=== PATIENT | female | born 1935 | race Caucasian/White ===

== ENCOUNTER 2018-10-04 05:08 | Inpatient (IN) ==
[2018-10-04] MEDS ORDERED: IPRATROPIUM/ALBUTEROL 3 ML AMPUL.NEB NEB ONE ×2 (05:22→05:58)
[2018-10-04] MEDS ORDERED: methylPREDNISolone SOD SUCC 125 MG/2 ML VIAL IV ONE (05:32)
[2018-10-04 06:20] LABS: Basophils # (Auto) 0 K/mcL (0.0-0.3); Basophils % (Auto) 0.3 % (0.0-2.0); Eosinophils # (Auto) 0.2 K/mcL (0.0-0.7); Eosinophils % (Auto) 1.9 % (0.0-7.0); Granulocytes % (Auto) 73.5 % (38.0-78.0); Lymphocytes # (Auto) 1.5 K/mcL (1.5-4.8); Lymphocytes % (Auto) 13.8 % (15.5-49.0); Mean Cell Volume 89.6 fL (80.0-100.0); Mean Corpuscular HGB Conc 33.1 g/dL (31.0-36.0); Monocytes # (Auto) 1.1 K/mcL (0.1-0.9); Monocytes % (Auto) 10.5 % (1.0-12.0); Platelet Count 205 K/mcL (140-440); Red Cell Distribution Width 13.1 % (11.5-14.5)
[2018-10-04 06:44] LABS: ALT/SGPT 22 U/l (0-40); Albumin 3.9 gm/dL (3.2-5.2); Albumin/Globulin Ratio 1.4 (1.0-2.3); Alkaline Phosphatase 66 U/L (39-117); Blood Urea Nitrogen 14 mg/dl (8-23)
[2018-10-04] MEDS ORDERED: cefTRIAXone 1 GM VIAL IV ONE (07:15)
[2018-10-04] MEDS ORDERED: LEVOFLOXACIN 750 MG/150 ML BAG IV ONE (07:15)
--- NOTE | 2018-10-04 07:19 | Emergency Department Note ---
SOB HPI - General Chief Complaint: Shortness of Breath/Dyspnea Stated Complaint: shortness of breath Time Seen by Provider: 10/04/18 07:10 Source: patient Mode of arrival: ambulatory Limitations: no limitations - History of Present Illness I saw this patient in 4 days ago for acute exacerbation of COPD. She is started on Zithromax and prednisone but has worsened her O2 saturation was in the 80s she is coughing constantly continue to bring up green phlegm feels tired and fatigued and short of breath. - Related Data Home Medications Medication Instructions Recorded Confirmed ascorbic acid (vitamin C) 500 mg 500 mg PO QDAY 06/27/17 09/17/18 tablet aspirin 81 mg tablet,delayed 81 mg PO QDAY 06/27/17 09/17/18 release lactobacillus combination no.8 3 3,000 mmu cells PO QDAY 06/27/17 09/17/18 billion cell capsule vitamin E (dl, acetate) 1,000 unit 1,000 unit PO QDAY 06/27/17 09/17/18 capsule cyanocobalamin (vit B-12) 1,000 1,000 mcg SUBLINGUAL QDAY 02/12/18 09/17/18 mcg sublingual tablet cholecalciferol (vitamin D3) 1,000 2,000 unit PO QDAY cap 07/25/18 09/17/18 unit capsule omega-3 fatty acids 1,000 mg 1,000 mg PO BID cap 07/25/18 09/17/18 capsule Previous Rx's Medication Instructions Recorded ropinirole 1 mg tablet 1 mg PO BID #180 tab 05/11/18 albuterol sulfate HFA 90 180 mcg INHALATION Q6H PRN #18 g 06/05/18 mcg/actuation aerosol inhaler hydrochlorothiazide 12.5 mg capsule 12.5 mg PO QDAY #90 cap 06/05/18 albuterol sulfate 0.63 mg/3 mL 0.63 mg INHALATION QID PRN #360 ml 06/19/18 solution for nebulization Nebulizer machine with supplies #1 ea 06/27/18 levothyroxine 112 mcg tablet 112 mcg PO QDAY #90 tab 07/03/18 budesonide-formoterol HFA 160 2 puff INHALATION BID #10.2 g 08/03/18 mcg-4.5 mcg/actuation aerosol inhaler hydrocodone 5 mg-acetaminophen 325 1 tab PO BID PRN #60 tab 09/10/18 mg tablet Azithromycin [Zithromax] 250 mg PO DAILY #4 tab 09/30/18 losartan 50 mg tablet 50 mg PO QDAY #90 tab 10/03/18 Allergies Allergy/AdvReac Type Severity Reaction Status Date / Time celecoxib [From CELEBREX] Allergy Unknown Unknown Verified 10/04/18 05:17 clindamycin [From CLEOCIN] Allergy Unknown Unknown Verified 10/04/18 05:17 Diclofenac Allergy Unknown Unknown Verified 10/04/18 05:17 [From ARTHROTEC 50] misoprostol Allergy Unknown Unknown Verified 10/04/18 05:17 [From ARTHROTEC 50] triamcinolone [From KENALOG] Allergy Unknown Unknown Verified 10/04/18 05:17 morphine [MORPHINE] AdvReac Intermediate Hallucinati Verified 10/04/18 05:17 ons lisinopril [LISINOPRIL] AdvReac Mild COUGH Verified 10/04/18 05:17 Review of Systems All systems ED: reviewed and negative except as stated. Past Medical History - Past Medical History PMFSH Narrative: Medical History (Last Reviewed 09/05/18 @ 15:26 by Randal Alvarez MD) History of right breast cancer (Resolved) COPD (chronic obstructive pulmonary disease) with chronic bronchitis (Acute) Numbness of foot (Acute) Asthma (Chronic) Chest discomfort (Acute) Encounter for Health Maintenance Examination in Adult (Chronic) History of tobacco use (Chronic) Restless legs (Chronic) Pelvic fracture (Chronic) Osteoporosis screening (Chronic) Lung nodule (Chronic) Low back pain (Chronic) Knee pain (Acute) Hypoxia (Chronic) Hypothyroidism (Chronic) Hypertension (Chronic) Hydronephrosis (Chronic) Fracture, humerus closed (Chronic) Hiatal hernia (Chronic) Fibrocystic breast disease (Chronic) Fall (Chronic) Esophageal reflux (Chronic) Dyspepsia (Chronic) Situational depression (Chronic) Degenerative joint disease (Chronic) Colon polyps (Chronic) Chest wall pain (Resolved) Dyspnea (Resolved) Respiratory symptoms (Resolved) Wheezing (Resolved) Past Surgical History (Last Reviewed 09/05/18 @ 15:26 by Randal Alvarez MD) History of hysterectomy (Chronic) Cystocele (Chronic) H/O colonoscopy (Chronic) Hx of cholecystectomy (Chronic) History of arthroplasty (Chronic) Family History (Last Reviewed 09/05/18 @ 15:26 by Randal Alvarez MD) Mother Malignant neoplasm of breast - Social History smoking status: Former smoker Physical Exam Limitations: no limitations General appearance: alert Head: atraumatic Eye: Present: normal appearance ENT: normal exam Neck: Present: normal inspection Chest: Present: normal inspection Respiratory: Present: rales/crackles, wheezes Cardiovascular: Present: regular rate, normal rhythm, normal heart sounds Abdominal: Present: soft. Absent: distention, tenderness Neurological: Present: alert Psychiatric: Present: normal affect Skin: Present: warm, dry Course Vital Signs Temperature 98.9 F 10/04/18 05:09 Pulse Rate 105 H 10/04/18 05:09 Respiratory Rate 24 H 10/04/18 05:09 Blood Pressure 163/87 10/04/18 05:09 Pulse Oximetry (%) 88 L 10/04/18 05:09 Temperature 98.9 F 10/04/18 05:09 Pulse Rate 108 H 10/04/18 06:46 Respiratory Rate 25 H 10/04/18 06:46 Blood Pressure 144/72 10/04/18 06:46 Pulse Oximetry (%) 94 10/04/18 06:46 Shortness of Breath/Dyspnea - MDM Narrative Medical decision making narrative: Patient was treated with DuoNeb and Solu-Medrol and started to feel little better. However I feel she is failing outpatient therapy. Her O2 saturation was 85% on room air when she arrived. I spoke with Dr. Martinez the patient will be admitted to the hospital. - Lab Data Lab results reviewed: Yes I reviewed the patient's lab results. Result diagrams: 10/04/18 05:40 10/04/18 05:40 Lab Results 10/04/18 10/04/18 Range/Units 05:40 05:40 WBC 10.5 (4.5-11.0) K/mcL RBC 5.40 H (4.00-5.20) M/mcL Hgb 16.0 H (12.0-15.0) g/dL Hct 48.4 H (36.0-48.0) % MCV 89.6 (80.0-100.0) fL MCH 29.6 (26.0-34.0) pg MCHC 33.1 (31.0-36.0) g/dL RDW 13.1 (11.5-14.5) % Plt Count 205 (140-440) K/mcL MPV 9.1 (7.4-10.4) fL Gran % 73.5 (38.0-78.0) % Lymph % (Auto) 13.8 L (15.5-49.0) % [place] % (Auto) 10.5 (1.0-12.0) % Eos % (Auto) 1.9 (0.0-7.0) % Baso % (Auto) 0.3 (0.0-2.0) % Gran # 7.7 (1.8-8.0) K/mcL Lymph # (Auto) 1.5 (1.5-4.8) K/mcL [place] # (Auto) 1.1 H (0.1-0.9) K/mcL Eos # (Auto) 0.2 (0.0-0.7) K/mcL Baso # (Auto) 0 (0.0-0.3) K/mcL Sodium 135 (133-145) mmol/L Potassium 3.2 L (3.3-5.1) mmol/L Chloride 96 (96-108) mmol/L Carbon Dioxide 23 (22-30) mmol/L Anion Gap 16.0 (8-16) BUN 14 (8-23) mg/dl Creatinine 0.7 (0.6-1.1) mg/dl GFR Calculation 80 Glucose 109 H (70-105) mg/dL Calcium 9.9 (8.6-10.4) mg/dl Total Bilirubin 0.5 (0.0-1.0) mg/dL AST 26 (0-37) U/l ALT 22 (0-40) U/l Alkaline Phosphatase 66 (39-117) U/L Total Protein 6.7 (5.9-8.4) gm/dL Albumin 3.9 (3.2-5.2) gm/dL Globulin 2.8 (2.2-3.7) gm/dL Albumin/Globulin Ratio 1.4 (1.0-2.3) - Radiology Data Radiology results reviewed: Yes I reviewed the patient's radiology results. Disposition Pt seen by PRODUCTION CELL LEADER/PA only: No Clinical Impression: Acute exacerbation of chronic obstructive airways disease Disposition: Xfer As Inpt ([facility]) Condition: Fair Referrals: Cristobal Shay MD [Primary Care Provider] - Time of Disposition: 07:26
--- NOTE | 2018-10-04 07:52 | XRay Report ---
HISTORY: COPD with shortness of breath and cough FINDINGS: The lungs are mildly hyperinflated and there is subtle interstitial fibrosis, right side greater than left. There is no evidence of pneumonia, mass or congestive heart failure. The heart size is normal. No pleural effusion is present. There has been no significant change since 09/30/18. IMPRESSION: Stable mild COPD and no acute abnormality Interpreted and Authenticated by: Jevon Avila 10/04/18
[2018-10-04] MEDS ORDERED: ONDANSETRON 4 MG/2 ML VIAL IV PRN (09:39)
[2018-10-04] MEDS ORDERED: DEXTROSE 50% 50 ML VIAL IV PRN (09:39)
[2018-10-04] MEDS ORDERED: LEVOFLOXACIN 500 MG/100 ML BAG IV SCH (09:39)
[2018-10-04] MEDS ORDERED: DEXTROSE 31 GM ORAL.SUSP PO PRN (09:39)
[2018-10-04] MEDS ORDERED: 0.9 % SODIUM CHLORIDE 1,000 ML IV SCH (09:39)
[2018-10-04] MEDS ORDERED: POTASSIUM CHLORIDE 20 MEQ PACKET PO ONE (09:39)
[2018-10-04] MEDS ORDERED: ACETAMINOPHEN 325 MG TABLET PO PRN (09:39)
--- NOTE | 2018-10-04 09:42 | Internal Med History&Physical ---
Medical - H&P: HPI Patient information: Note initiated : 10/04/18 at 9:39 am Service Date, if different from initiated Date: [] Patient: Charlotte Keller a 83 y/o F admitted on 10/04/18 for Shortness of breath. Chief Complaint: [] History of present illness: Ms. Keller is a 83 year old F Who originally presented to ED about 4 days ago with acute exacerbation COPD. She was given azithromycin and prednisone. She felt after the second day she thought she was going to start improving but then she got worse again. She described his full body aches severe fatigue continued productive cough and shortness of breath. Because of the continued symptoms she came in the ER she is found to be hypoxic at 85% on room air. Chest x-ray is unremarkable ABG okay other than her oxygen being a little low. Lactate was okay labs unremarkable. She is all tachycardic and tachypneic tachypneic. She said she had a "breathing study" done outpatient and is following up with Dr. Alvarez, it was not a sleep study. Because of her failing outpatient treatment for COPD exacerbation she was thus admitted. Denies any chest pain has occasional headache no nausea vomiting. She has had some diarrhea since Monday. Review of Systems: Pertinent positives as above. Denies fever/chills/nausea/vomiting/chest or abdominal pain. Remaining 10 point review of systems reviewed negative. Medical - H&P: PMH Medical history: Past medical history: COPD not on home oxygen but is being evaluated for oxygen outpatient Hypertension Chronic pain including low back pain next line hypothyroidism Past Surgical History (Last Reviewed 09/05/18 @ 15:26 by Randal Alvarez MD) History of hysterectomy (Chronic) Cystocele (Chronic) H/O colonoscopy (Chronic) Hx of cholecystectomy (Chronic) History of arthroplasty (Chronic) Family History (Last Reviewed 09/05/18 @ 15:26 by Randal Alvarez MD) Mother Malignant neoplasm of breast Father is healthy Social History (Last Updated 09/17/18 @ 15:37 by Cristobal Shay MD) Quit smoking in the early drinks alcohol rarely occasionally uses a cane mostly when she is out in the gardner lives at home with her Medical - H&P: Meds Home Medications Medication Instructions Recorded Confirmed Type ascorbic acid (vitamin C) 500 mg 500 mg PO QDAY 06/27/17 10/04/18 History tablet aspirin 81 mg tablet,delayed 81 mg PO QDAY 06/27/17 10/04/18 History release vitamin E (dl, acetate) 1,000 unit 1,000 unit PO QDAY 06/27/17 10/04/18 History capsule cyanocobalamin (vit B-12) 1,000 1,000 mcg SUBLINGUAL QDAY 02/12/18 10/04/18 History mcg sublingual tablet albuterol sulfate HFA 90 180 mcg INHALATION Q6H PRN #18 g 06/05/18 10/04/18 Rx mcg/actuation aerosol inhaler hydrochlorothiazide 12.5 mg capsule 12.5 mg PO QDAY #90 cap 06/05/18 10/04/18 Rx Nebulizer machine with supplies #1 each 06/27/18 09/17/18 Rx levothyroxine 112 mcg tablet 112 mcg PO QDAY #90 tab 07/03/18 10/04/18 Rx cholecalciferol (vitamin D3) 1,000 2,000 unit PO QDAY cap 07/25/18 10/04/18 History unit capsule omega-3 fatty acids 1,000 mg 1,000 mg PO DAILY cap 07/25/18 10/04/18 History capsule budesonide-formoterol HFA 160 2 puff INHALATION BID #10.2 g 08/03/18 10/04/18 Rx mcg-4.5 mcg/actuation aerosol inhaler hydrocodone 5 mg-acetaminophen 325 1 tab PO BID PRN #60 tab 09/10/18 10/04/18 Rx mg tablet losartan 50 mg tablet 50 mg PO QDAY #90 tab 10/03/18 10/04/18 Rx rOPINIRole HCL [Requip] 1 mg PO DAILY 10/04/18 10/04/18 History Allergies Allergy/AdvReac Type Severity Reaction Status Date / Time celecoxib [From CELEBREX] Allergy Unknown Unknown Verified 10/04/18 05:17 clindamycin [From CLEOCIN] Allergy Unknown Unknown Verified 10/04/18 05:17 Diclofenac Allergy Unknown Unknown Verified 10/04/18 05:17 [From ARTHROTEC 50] misoprostol Allergy Unknown Unknown Verified 10/04/18 05:17 [From ARTHROTEC 50] triamcinolone [From KENALOG] Allergy Unknown Unknown Verified 10/04/18 05:17 morphine [MORPHINE] AdvReac Intermediate Hallucinati Verified 10/04/18 05:17 ons lisinopril [LISINOPRIL] AdvReac Mild COUGH Verified 10/04/18 05:17 Medical - H&P: Exam - Constitutional Vitals: Temp Pulse Resp BP Pulse Ox 98.9 F 96 H 20 134/75 93 10/04/18 08:40 10/04/18 08:25 10/04/18 08:40 10/04/18 08:40 10/04/18 08:40 Exam: General: Alert, Awake, No acute Distress Eyes/N/T: EOMI, PEERL, DMM Head/Neck: neck supple, normocephalic atraumatic CV: RRR, No murmurs, normal s1/s2 Pulm: Bilateral rhonchi and wheezing Abd: soft, nontender, +BS x4 Ext: no clubbing/cyanosis/edema Neuro: Alert, no focal deficits, moves all extremities, CN 2-12 grossly intact, symmetrical strength b/l upper/lower, sensations intact b/l upper/lower Skin: warm/dry Medical - H&P: Reslt - Labs CBC & Chem 7: 10/04/18 05:40 10/04/18 05:40 Labs: Short CBC 10/04/18 Range/Units 05:40 WBC 10.5 (4.5-11.0) K/mcL Hgb 16.0 H (12.0-15.0) g/dL Hct 48.4 H (36.0-48.0) % Plt Count 205 (140-440) K/mcL BMP 10/04/18 05:40 Sodium 135 Potassium 3.2 L Chloride 96 Carbon Dioxide 23 BUN 14 Creatinine 0.7 Glucose 109 H Calcium 9.9 Cardiac Enzymes 10/04/18 Range/Units 07:22 Troponin T < 0.01 (0-0.03) ng/ml Liver Function 10/04/18 Range/Units 05:40 Total Bilirubin 0.5 (0.0-1.0) mg/dL AST 26 (0-37) U/l ALT 22 (0-40) U/l Alkaline Phosphatase 66 (39-117) U/L Albumin 3.9 (3.2-5.2) gm/dL - Impressions Chest x-ray no acute pathology, COPD changes Medical - H&P: A/P - Narrative A/P Narrative: A: *AECOPD(does not use oxygen at home but is currently being evaluated for): Failed outpatient treatment -Flu screen in ED negative *Acute on chronic hypoxic respiratory failure: *Hypokalemia *Hypertension: *Chronic pain: *Hypothyroidism: *diarrhea: likely abx induced P: -Steroids (Wean), damian/prn nebs, -IS/Acapella -empiric Abx -resp viral panel -c. diff pending -IVF's -O2 support -pt/ot - -ppx: lovenox Medical - H&P: Qual - Stroke Symptom Onset Unknown: No - VTE Deep Vein Thrombosis/Pulmonary Embolism Present on Admission: No
[2018-10-04] MEDS: HYDROcodone/APAP 5/325MG TABLET PO PRN (10:16)
[2018-10-04] MEDS: INSULIN LISPRO 1 UNIT/0.01 ML UNIT SQ SCH ×3 (11:45→21:31)
[2018-10-04] MEDS: IPRATROPIUM/ALBUTEROL 3 ML AMPUL.NEB NEB SCH ×2 (12:56→19:39)
[2018-10-04] MEDS: 0.9 % SODIUM CHLORIDE 10 ML SYRINGE IV SCH ×2 (14:28→23:08)
[2018-10-04] MEDS: methylPREDNISolone SOD SUCC 40 MG/ML VIAL IV SCH ×2 (15:30→23:05)
[2018-10-04] MEDS: Budesonide/Formoterol Fumarate [Symbicort 160-4.5 MCG] Inhaler INH SCH (21:32)
[2018-10-04] MEDS: rOPINIRole 1 MG TABLET PO SCH (22:46)
[2018-10-05] MEDS: LACTOBACILLUS 1 CAPSULE PO SCH ×3 (01:05→20:35)
[2018-10-05] MEDS: IPRATROPIUM/ALBUTEROL 3 ML AMPUL.NEB NEB SCH ×4 (01:05→18:43)
[2018-10-05] MEDS ORDERED: LOPERAMIDE 2 MG CAPSULE PO PRN (05:46)
--- NOTE | 2018-10-05 05:48 | Internal Med Progress Note ---
Medical - PN: Subj Patient information: Note initiated : 10/05/18 at 5:44 am Service Date, if different from initiated Date: [] Patient: Charlotte Keller 83 y/o F admitted on 10/04/18 for Shortness of breath. Chief Complaint: [] Interval history: Ms. Keller is a 83 year old F Who originally presented to ED about 4 days ago with acute exacerbation COPD. She was given azithromycin and prednisone. She felt after the second day she thought she was going to start improving but then she got worse again. She desc ribed his full body aches severe fatigue continued productive cough and shortness of breath. Because of the continued symptoms she came in the ER she is found to be hypoxic at 85% on room air. Chest x-ray is unremarkable ABG okay other than her oxygen being a little low. Lactate was okay labs unremarkable. She is all tachycardic and tachypneic tachypneic. She said she had a "breathing study" done outpatient and is following up with Dr. Alvarez, it was not a sleep study. Because of her failing outpatient treatment for COPD exacerbation she was thus admitted. Denies any chest pain has occasional headache no nausea vomiting. She has had some diarrhea since Monday. 1/4 Shortness of breath overnight. Has a productive cough. Does ambulate about 100 feet and is short of breath afterwards. Occasional headache. And some nausea whenever she coughs. Cough productive of green sputum. Diarrhea started last night. C. difficile negative, start Imodium. Review of Systems: denies fever/chills/vomiting/chest or abdominal pain. Otherwise see above. - Constitutional Vitals: Vital Signs Temp Pulse Resp BP Pulse Ox 98.0 F 85 22 132/84 96 10/04/18 23:27 10/04/18 23:27 10/04/18 23:27 10/04/18 23:27 10/04/18 23:27 Period Temp Pulse Resp BP Sys/Park Pulse Ox Last 24 Hr 98.0 F-98.9 F 85-112 12-26 132-162/72-105 93-96 Intake and Output 10/04/18 10/04/18 10/05/18 13:59 21:59 05:59 Intake Total 120 / 840 720 / 840 Output Total 200 / 1350 1000 / 1350 150 / 1350 Balance -80 / -510 -280 / -510 -150 / -510 Weight 63.957 kg 63.957 kg Patient Weight 10/05/18 05:59 Weight 63.957 kg Intake & Output: Intake & Output 10/04/18 10/04/18 10/05/18 13:59 21:59 05:59 Intake Total 120 / 840 720 / 840 Output Total 200 / 1350 1000 / 1350 150 / 1350 Balance -80 / -510 -280 / -510 -150 / -510 Weight 63.957 kg 63.957 kg Intake: Oral 120 / 840 720 / 840 Output: Void Amount 200 / 1350 1000 / 1350 150 / 1350 Other: Meal Dinner Percent of Meal Consumed 50% Feeding Ability Independent Urine Appearance Clear Clear Urine Color Dark Yellow Pale Urine Odor Normal Normal Stool Size Small Stool Color Brown Yellow Stool Consistency Liquid Watery Loose # Voids 1 1 # Bowel Movements 1 Exam: General: Alert, Awake, No acute Distress Eyes/N/T: EOMI, Head/Neck: neck supple, CV: RRR, No murmurs, normal s1/s2 Pulm: Bilateral wheezing and mild rhonchi Abd: soft, nontender, +BS x4 Ext: no clubbing/cyanosis/edema Neuro: Alert, no focal deficits, moves all extremities, Skin: warm/dry Medical - PN: Obj Da - Labs CBC & Chem 7: 10/05/18 04:00 10/05/18 04:00 Labs: Abnormal Lab Results 10/04/18 10/04/18 05:40 05:40 RBC 5.40 H Hgb 16.0 H Hct 48.4 H Lymph % (Auto) 13.8 L [place] # (Auto) 1.1 H Potassium 3.2 L Glucose 109 H Meds: Medications Acetaminophen (Tylenol) 650 mg PO Q6HP PRN PRN Reason: PAIN/FEVER > 101 Hydrocodone Bitart/Acetaminophen ([place] 5/325mg) 1 tab PO BIDP PRN PRN Reason: pain, s/p breast cancer Last Admin: 10/04/18 10:16 Dose: 1 tab Documented by: Albuterol/Ipratropium (Duoneb) 3 ml NEB Q6HRT DAMIAN Last Admin: 10/05/18 01:05 Dose: 3 ml Documented by: Aspirin (Aspirin) 81 mg PO DAILY [facility] Dextrose (Dextrose 50%) 0 ml IV UD PRN PRN Reason: Hypoglycemia Diagnostic Test (Pha) (Accu-Chek) 1 each FS [facility] Last Admin: 10/04/18 21:30 Dose: 1 each Documented by: Enoxaparin Sodium (Lovenox) 40 mg SQ DAILY [facility] Glucose (Insta-Glucose) 15 gm PO PRN PRN PRN Reason: Hypoglycemia Levofloxacin (Levaquin) 750 mg in 150 mls @ 100 mls/hr IV Q48H [facility] Insulin Human Lispro (Humalog) 0 unit SQ [facility]; Protocol Last Admin: 10/04/18 21:31 Dose: Not Given Documented by: Lactobacillus Rhamnosus (Culturelle) 1 cap PO BID [facility] Last Admin: 10/05/18 01:05 Dose: 1 cap Documented by: Levothyroxine Sodium (Synthroid) 112 mcg PO ACB [facility] Losartan Potassium (Cozaar) 50 mg PO QDAY [facility] Methylprednisolone Sodium Succinate (Solu-Medrol) 40 mg IV Q8 [facility] Last Admin: 10/04/18 23:05 Dose: 40 mg Documented by: Ondansetron HCl (Zofran) 4 mg IV Q6HP PRN PRN Reason: Nausea And Vomiting Budesonide/Formoterol Fumarate [Symbicort 160-4.5 Mcg] Inhaler 1 dose INH BID [facility] Last Admin: 10/04/18 21:32 Dose: Not Given Documented by: Ropinirole HCl (Requip) 1 mg PO DAILY@1200 [facility] Last Admin: 10/04/18 22:46 Dose: 1 mg Documented by: Sodium Chloride (Saline Flush) 10 ml IV Q8 [facility] Last Admin: 10/04/18 23:08 Dose: Not Given Documented by: Medical - PN: A/P - Time Spent With Patient Total time spent is greater than 50% in coordination of care (as documented) at patient's floor/unit and/or counseling patient: - Narrative A/P Narrative: A: *AECOPD(does not use oxygen at home but is currently being evaluated for): Failed outpatient treatment. 2/2 RSV Infection -resp viral panel + for RSV *Acute on chronic hypoxic respiratory failure: -on 1.5L NC *Hypokalemia *Hypertension: *Chronic pain: *Hypothyroidism: *diarrhea: likely abx induced. c.diff neg P: -Steroids (Wean), damian/prn nebs, -IS/Acapella -empiric Abx -IVF's -O2 support -pt/ot -imodium -ppx: lovenox Medical - PN: Qual - Stroke Symptom Onset Unknown: No - VTE Deep Vein Thrombosis/Pulmonary Embolism Present on Admission: No
[2018-10-05 06:30] LABS: Basophils # (Auto) 0 K/mcL (0.0-0.3); Basophils % (Auto) 0 % (0.0-2.0); Eosinophils # (Auto) 0 K/mcL (0.0-0.7); Eosinophils % (Auto) 0 % (0.0-7.0); Granulocytes % (Auto) 91.2 % (38.0-78.0); Lymphocytes # (Auto) 0.5 K/mcL (1.5-4.8); Lymphocytes % (Auto) 4.6 % (15.5-49.0); Mean Cell Volume 90.1 fL (80.0-100.0); Mean Corpuscular HGB Conc 32.6 g/dL (31.0-36.0); Monocytes # (Auto) 0.4 K/mcL (0.1-0.9); Monocytes % (Auto) 4.2 % (1.0-12.0); Platelet Count 208 K/mcL (140-440); RBC 4.84 M/mcL (4.00-5.20); Red Cell Distribution Width 12.9 % (11.5-14.5)
[2018-10-05 07:17] LABS: ALT/SGPT 23 U/l (0-40); Albumin 3.4 gm/dL (3.2-5.2); Albumin/Globulin Ratio 1.3 (1.0-2.3); Alkaline Phosphatase 52 U/L (39-117); Bilirubin,Direct < 0.2 mg/dL (0.0-0.3); Blood Urea Nitrogen 12 mg/dl (8-23); Gamma Glutamyl Transpeptidase 24 U/L (5-36); Uric Acid 4.6 mg/dL (2.5-8.0)
[2018-10-05] MEDS ORDERED: IPRATROPIUM/ALBUTEROL 3 ML AMPUL.NEB NEB PRN (07:22)
[2018-10-05] MEDS: 0.9 % SODIUM CHLORIDE 10 ML SYRINGE IV SCH ×3 (08:02→20:37)
[2018-10-05] MEDS: LOSARTAN 25 MG TABLET PO SCH (08:03)
[2018-10-05] MEDS: INSULIN LISPRO 1 UNIT/0.01 ML UNIT SQ SCH ×4 (08:03→20:33)
[2018-10-05] MEDS: ASPIRIN 81 MG TAB.CHEW PO SCH (08:03)
[2018-10-05] MEDS: LEVOTHYROXINE SODIUM 112 MCG TABLET PO SCH (08:06)
[2018-10-05] MEDS: Budesonide/Formoterol Fumarate [Symbicort 160-4.5 MCG] Inhaler INH SCH ×2 (08:07→20:37)
[2018-10-05] MEDS: ENOXAPARIN 40 MG/0.4 ML SYRINGE SQ SCH (08:07)
[2018-10-05] MEDS ORDERED: LEVOFLOXACIN 250 MG/50 ML BAG IV SCH (09:00)
[2018-10-05] MEDS ORDERED: rOPINIRole 1 MG TABLET PO SCH (09:00)
[2018-10-05] MEDS ORDERED: NEUTRA PHOS 1 PACKET PO ONE (09:29)
[2018-10-05] MEDS: methylPREDNISolone SOD SUCC 40 MG/ML VIAL IV SCH ×3 (10:11→20:34)
[2018-10-05] MEDS: HYDROcodone/APAP 5/325MG TABLET PO PRN ×2 (13:47→20:35)
[2018-10-05] MEDS: rOPINIRole 1 MG TABLET PO SCH (15:28)
[2018-10-06] MEDS: IPRATROPIUM/ALBUTEROL 3 ML AMPUL.NEB NEB SCH ×4 (03:00→18:40)
[2018-10-06] MEDS: methylPREDNISolone SOD SUCC 40 MG/ML VIAL IV SCH ×3 (06:10→21:13)
[2018-10-06] MEDS: 0.9 % SODIUM CHLORIDE 10 ML SYRINGE IV SCH ×3 (06:11→22:10)
[2018-10-06] MEDS: LEVOTHYROXINE SODIUM 112 MCG TABLET PO SCH (06:11)
[2018-10-06 06:12] LABS: ALT/SGPT 36 U/l (0-40); Albumin 3.8 gm/dL (3.2-5.2); Albumin/Globulin Ratio 1.4 (1.0-2.3); Alkaline Phosphatase 64 U/L (39-117); Bilirubin,Direct < 0.2 mg/dL (0.0-0.3); Blood Urea Nitrogen 18 mg/dl (8-23); Gamma Glutamyl Transpeptidase 32 U/L (5-36); Uric Acid 4.2 mg/dL (2.5-8.0)
[2018-10-06] MEDS: INSULIN LISPRO 1 UNIT/0.01 ML UNIT SQ SCH ×4 (07:30→21:13)
[2018-10-06] MEDS: Budesonide/Formoterol Fumarate [Symbicort 160-4.5 MCG] Inhaler INH SCH (07:42)
[2018-10-06] MEDS: LOSARTAN 25 MG TABLET PO SCH (09:01)
[2018-10-06] MEDS: LACTOBACILLUS 1 CAPSULE PO SCH ×2 (09:02→21:13)
[2018-10-06] MEDS: LEVOFLOXACIN 750 MG/150 ML BAG IV SCH (09:03)
[2018-10-06] MEDS: ENOXAPARIN 40 MG/0.4 ML SYRINGE SQ SCH (09:03)
[2018-10-06] MEDS: ASPIRIN 81 MG TAB.CHEW PO SCH (09:05)
--- NOTE | 2018-10-06 10:04 | Internal Med Progress Note ---
Medical - PN: Subj Patient information: Note initiated : 10/06/18 at 10:01 am Service Date, if different from initiated Date: [] Patient: Charlotte Keller 83 y/o F admitted on 10/04/18 for Shortness of breath. Chief Complaint: [] Interval history: Ms. Keller is a 83 year old F Who originally presented to ED about 4 days ago with acute exacerbation COPD. She was given azithromycin and prednisone. She felt after the second day she thought she was going to start improving but then she got worse again. She ariane cribed his full body aches severe fatigue continued productive cough and shortness of breath. Because of the continued symptoms she came in the ER she is found to be hypoxic at 85% on room air. Chest x-ray is unremarkable ABG okay other than her oxygen being a little low. Lactate was okay labs unremarkable. She is all tachycardic and tachypneic tachypneic. She said she had a "breathing study" done outpatient and is following up with Dr. Alvarez, it was not a sleep study. Because of her failing outpatient treatment for COPD exacerbation she was thus admitted. Denies any chest pain has occasional headache no nausea vomiting. She has had some diarrhea since Monday. 1/4 Shortness of breath overnight. Has a productive cough. Does ambulate about 100 feet and is short of breath afterwards. Occasional headache. And some nausea whenever she coughs. Cough productive of green sputum. Diarrhea started last night. C. difficile negative, start Imodium. 1/5 Patient very short of breath and unable to talk in full sentences. Ongoing bronchodilators/supplement oxygen and steroids. Continue PT OT - Constitutional Vitals: Vital Signs Temp Pulse Resp BP Pulse Ox 98.5 F 85 20 138/78 92 10/06/18 08:00 10/06/18 08:00 10/06/18 08:00 10/06/18 08:00 10/06/18 08:00 Period Temp Pulse Resp BP Sys/Park Pulse Ox Last 24 Hr 97.5 F-99.1 F 78-101 20-26 111-145/65-87 91-96 Intake and Output 10/05/18 10/06/18 10/06/18 21:59 05:59 13:59 Intake Total 630 / 1130 500 / 1130 Output Total 301 / 551 Balance 329 / 579 500 / 579 Weight 140 lb Intake & Output: Intake & Output 10/05/18 10/06/18 10/06/18 21:59 05:59 13:59 Intake Total 630 / 1130 500 / 1130 Output Total 301 / 551 Balance 329 / 579 500 / 579 Weight 140 lb Intake: Oral 630 / 1130 500 / 1130 Output: Void Amount 300 / 550 # of times incontinent of urine Other: Meal Cup of mixed berries Percent of Meal Consumed 50% Feeding Ability Independent Urine Appearance Clear Clear Urine Color Bright Yellow Bright Yellow Bright Yellow Urine Odor Normal # Voids 1 2 General appearance: disheveled, moderate distress (Labored and anxious) Exam: Labored breathing Alert oriented No lymphedema Medical - PN: Obj Da - Labs CBC & Chem 7: 10/05/18 04:00 10/06/18 04:22 Labs: Abnormal Lab Results 10/06/18 10/05/18 10/05/18 04:22 04:00 04:00 RBC Hgb Hct Gran % 91.2 H Lymph % (Auto) 4.6 L Gran # 9.2 H Lymph # (Auto) 0.5 L [place] # (Auto) Potassium Carbon Dioxide 20 L Glucose 157 H 160 H Phosphorus 1.8 L AST 53 H Lactate Dehydrogenase 387 H 285 H 10/04/18 10/04/18 05:40 05:40 RBC 5.40 H Hgb 16.0 H Hct 48.4 H Gran % Lymph % (Auto) 13.8 L Gran # Lymph # (Auto) [place] # (Auto) 1.1 H Potassium 3.2 L Carbon Dioxide Glucose 109 H Phosphorus AST Lactate Dehydrogenase Meds: Medications Acetaminophen (Tylenol) 650 mg PO Q6HP PRN PRN Reason: PAIN/FEVER > 101 Hydrocodone Bitart/Acetaminophen ([place] 5/325mg) 1 tab PO BIDP PRN PRN Reason: pain, s/p breast cancer Last Admin: 10/05/18 20:35 Dose: 1 tab Documented by: Albuterol Sulfate (Ventolin) 2.5 mg NEB Q2HP PRN PRN Reason: Shortness Of Breath Albuterol/Ipratropium (Duoneb) 3 ml NEB Q6HRT [facility] Last Admin: 10/06/18 07:40 Dose: 3 ml Documented by: Aspirin (Aspirin) 81 mg PO DAILY [facility] Last Admin: 10/06/18 09:05 Dose: 81 mg Documented by: Dextrose (Dextrose 50%) 0 ml IV UD PRN PRN Reason: Hypoglycemia Diagnostic Test (Pha) (Accu-Chek) 1 each FS ACHS [facility] Last Admin: 10/06/18 07:28 Dose: 1 each Documented by: Enoxaparin Sodium (Lovenox) 40 mg SQ DAILY [facility] Last Admin: 10/06/18 09:03 Dose: Not Given Documented by: Glucose (Insta-Glucose) 15 gm PO PRN PRN PRN Reason: Hypoglycemia Levofloxacin (Levaquin) 750 mg in 150 mls @ 100 mls/hr IV Q48H [facility] Last Admin: 10/06/18 09:03 Dose: 100 mls/hr Documented by: Insulin Human Lispro (Humalog) 0 unit SQ [facility]; Protocol Last Admin: 10/06/18 07:30 Dose: Not Given Documented by: Lactobacillus Rhamnosus (Culturelle) 1 cap PO BID [facility] Last Admin: 10/06/18 09:02 Dose: 1 cap Documented by: Levothyroxine Sodium (Synthroid) 112 mcg PO ACB [facility] Last Admin: 10/06/18 06:11 Dose: 112 mcg Documented by: Loperamide HCl (Imodium) 2 mg PO PRN PRN PRN Reason: Diarrhea Losartan Potassium (Cozaar) 50 mg PO QDAY [facility] Last Admin: 10/06/18 09:01 Dose: 50 mg Documented by: Methylprednisolone Sodium Succinate (Solu-Medrol) 40 mg IV Q8 [facility] Last Admin: 10/06/18 06:10 Dose: 40 mg Documented by: Ondansetron HCl (Zofran) 4 mg IV Q6HP PRN PRN Reason: Nausea And Vomiting Budesonide/Formoterol Fumarate [Symbicort 160-4.5 Mcg] Inhaler 1 dose INH BID [facility] Last Admin: 10/06/18 07:42 Dose: 1 dose Documented by: Ropinirole HCl (Requip) 1 mg PO DAILY@1200 [facility] Last Admin: 10/05/18 15:28 Dose: 1 mg Documented by: Sodium Chloride (Saline Flush) 10 ml IV Q8 [facility] Last Admin: 10/06/18 06:11 Dose: 10 ml Documented by: Medical - PN: A/P - Time Spent With Patient Total time spent is greater than 50% in coordination of care (as documented) at patient's floor/unit and/or counseling patient: 25 - 35 minutes (1) Acute exacerbation of chronic obstructive airways disease Status: Acute Assessment and plan: * COPD exacerbation-secondary to RSV. Supportive treatment/bronchodilator steroids * Acute on chronic hypoxic history failure supplemental oxygen- * History of hypertension on home meds * Hypothyroidism on thyroxine * DNR * Prophylaxis Lovenox Plan * Supportive management with bronchodilators steroids * PT OT RT treatments * Discharge planning likely in 48-72 hours once clinically improved Current Visit: Yes Medical - PN: Qual - Stroke Symptom Onset Unknown: No - VTE Deep Vein Thrombosis/Pulmonary Embolism Present on Admission: No
[2018-10-06] MEDS: rOPINIRole 1 MG TABLET PO SCH (14:11)
[2018-10-06] MEDS: HYDROcodone/APAP 5/325MG TABLET PO PRN ×2 (17:42→21:21)
[2018-10-07] MEDS: IPRATROPIUM/ALBUTEROL 3 ML AMPUL.NEB NEB SCH ×4 (00:17→18:32)
[2018-10-07] MEDS: Budesonide/Formoterol Fumarate [Symbicort 160-4.5 MCG] Inhaler INH SCH ×3 (00:19→20:32)
[2018-10-07] MEDS: methylPREDNISolone SOD SUCC 40 MG/ML VIAL IV SCH (06:00)
[2018-10-07] MEDS: 0.9 % SODIUM CHLORIDE 10 ML SYRINGE IV SCH ×3 (06:00→20:33)
--- NOTE | 2018-10-07 06:25 | Internal Med Progress Note ---
Medical - PN: Subj Patient information: Note initiated : 10/07/18 at 6:23 am Service Date, if different from initiated Date: [] Patient: Charlotte Keller 83 y/o F admitted on 10/04/18 for Shortness of breath. Chief Complaint: [] Interval history: Ms. Keller is a 83 year old F Who originally presented to ED about 4 days ago with acute exacerbation COPD. She was given azithromycin and prednisone. She felt after the second day she thought she was going to start improving but then she got worse again. She desc ribed his full body aches severe fatigue continued productive cough and shortness of breath. Because of the continued symptoms she came in the ER she is found to be hypoxic at 85% on room air. Chest x-ray is unremarkable ABG okay other than her oxygen being a little low. Lactate was okay labs unremarkable. She is all tachycardic and tachypneic tachypneic. She said she had a "breathing study" done outpatient and is following up with Dr. Alvarez, it was not a sleep study. Because of her failing outpatient treatment for COPD exacerbation she was thus admitted. Denies any chest pain has occasional headache no nausea vomiting. She has had some diarrhea since Monday. 1/4 Shortness of breath overnight. Has a productive cough. Does ambulate about 100 feet and is short of breath afterwards. Occasional headache. And some nausea whenever she coughs. Cough productive of green sputum. Diarrhea started last night. C. difficile negative, start Imodium. 1/ Patient very short of breath and unable to talk in full sentences. Ongoing bronchodilators/supplement oxygen and steroids. Continue PT OT 10/07-patient experiencing spells of coughing fits and dyspneic at rest. Nurse concerned about diminished airway with prolonged respiratory excursion. On 3 L oxygen. However clinically improved since previous day. No fever chills or other concerns per staff. Gets very short of breath with minimal exertion. - Constitutional Vitals: Vital Signs Temp Pulse Resp BP Pulse Ox 97.5 F 88 18 147/90 94 10/07/18 04:00 10/07/18 04:00 10/07/18 04:00 10/07/18 04:00 10/07/18 04:00 Period Temp Pulse Resp BP Sys/Park Pulse Ox Last 24 Hr 97.5 F-98.5 F 85-118 18-22 135-163/72-100 91-94 Intake and Output 10/06/18 10/07/18 10/07/18 21:59 05:59 13:59 Intake Total 750 / 750 Output Total 1650 / 1950 300 / 1950 Balance -1650 / -1200 450 / -1200 Weight 140 lb Intake & Output: Intake & Output 10/06/18 10/07/18 10/07/18 21:59 05:59 13:59 Intake Total 750 / 750 Output Total 1650 / 1950 300 / 1950 Balance -1650 / -1200 450 / -1200 Weight 140 lb Intake: IV 150 / 150 Oral 600 / 600 Output: Void Amount 1650 / 1950 300 / 1950 Other: Urine Appearance Clear Clear Urine Color Bright Yellow Bright Yellow Urine Odor Normal Stool Size Small Stool Color Brown Stool Consistency Loose # Voids 1 # Bowel Movements 1 General appearance: no acute distress Exam: Labored and short of breath Minimally anxious No abdominal distention Alert Medical - PN: Obj Da - Labs CBC & Chem 7: 10/05/18 04:00 10/06/18 04:22 Labs: Abnormal Lab Results 10/06/18 10/05/18 10/05/18 04:22 04:00 04:00 Gran % 91.2 H Lymph % (Auto) 4.6 L Gran # 9.2 H Lymph # (Auto) 0.5 L Potassium Carbon Dioxide 20 L Glucose 157 H 160 H Phosphorus 1.8 L AST 53 H Lactate Dehydrogenase 387 H 285 H 10/04/18 05:40 Gran % Lymph % (Auto) Gran # Lymph # (Auto) Potassium 3.2 L Carbon Dioxide Glucose 109 H Phosphorus AST Lactate Dehydrogenase Meds: Medications Acetaminophen (Tylenol) 650 mg PO Q6HP PRN PRN Reason: PAIN/FEVER > 101 Hydrocodone Bitart/Acetaminophen ([place] 5/325mg) 1 tab PO BIDP PRN PRN Reason: pain, s/p breast cancer Last Admin: 10/06/18 21:21 Dose: 1 tab Documented by: Albuterol Sulfate (Ventolin) 2.5 mg NEB Q2HP PRN PRN Reason: Shortness Of Breath Albuterol/Ipratropium (Duoneb) 3 ml NEB Q6HRT [facility] Last Admin: 10/07/18 00:17 Dose: 3 ml Documented by: Aspirin (Aspirin) 81 mg PO DAILY [facility] Last Admin: 10/06/18 09:05 Dose: 81 mg Documented by: Dextrose (Dextrose 50%) 0 ml IV UD PRN PRN Reason: Hypoglycemia Diagnostic Test (Pha) (Accu-Chek) 1 each FS ACHS [facility] Last Admin: 10/06/18 21:23 Dose: 1 each Documented by: Enoxaparin Sodium (Lovenox) 40 mg SQ DAILY [facility] Last Admin: 10/06/18 09:03 Dose: Not Given Documented by: Glucose (Insta-Glucose) 15 gm PO PRN PRN PRN Reason: Hypoglycemia Levofloxacin (Levaquin) 750 mg in 150 mls @ 100 mls/hr IV Q48H [facility] Last Infusion: 10/06/18 22:12 Dose: Infused Documented by: Insulin Human Lispro (Humalog) 0 unit SQ [facility]; Protocol Last Admin: 10/06/18 21:13 Dose: 2 units Documented by: Lactobacillus Rhamnosus (Culturelle) 1 cap PO BID [facility] Last Admin: 10/06/18 21:13 Dose: 1 cap Documented by: Levothyroxine Sodium (Synthroid) 112 mcg PO ACB [facility] Last Admin: 10/06/18 06:11 Dose: 112 mcg Documented by: Loperamide HCl (Imodium) 2 mg PO PRN PRN PRN Reason: Diarrhea Losartan Potassium (Cozaar) 50 mg PO QDAY [facility] Last Admin: 10/06/18 09:01 Dose: 50 mg Documented by: Methylprednisolone Sodium Succinate (Solu-Medrol) 40 mg IV Q8 [facility] Last Admin: 10/06/18 21:13 Dose: 40 mg Documented by: Ondansetron HCl (Zofran) 4 mg IV Q6HP PRN PRN Reason: Nausea And Vomiting Budesonide/Formoterol Fumarate [Symbicort 160-4.5 Mcg] Inhaler 1 dose INH BID [facility] Last Admin: 10/07/18 00:19 Dose: Not Given Documented by: Ropinirole HCl (Requip) 1 mg PO DAILY@1200 [facility] Last Admin: 10/06/18 14:11 Dose: 1 mg Documented by: Sodium Chloride (Saline Flush) 10 ml IV Q8 [facility] Last Admin: 10/06/18 22:10 Dose: 10 ml Documented by: Medical - PN: A/P - Time Spent With Patient Total time spent is greater than 50% in coordination of care (as documented) at patient's floor/unit and/or counseling patient: 15 - 24 minutes (1) Acute exacerbation of chronic obstructive airways disease Status: Acute Assessment and plan: * COPD exacerbation-secondary to RSV. Continue supportive treatment/bronchodilator, IV steroids. * Acute on chronic hypoxic history failure supplemental oxygen- * History of hypertension on home meds * Hypothyroidism on thyroxine * DNR * Prophylaxis Lovenox Plan * Continue symptomatic/supportive treatment * Pulmonary toilet/IV steroids * PT OT RT * Discharge planning likely to SNF Current Visit: Yes Medical - PN: Qual - Stroke Symptom Onset Unknown: No - VTE Deep Vein Thrombosis/Pulmonary Embolism Present on Admission: No
[2018-10-07] MEDS: LEVOTHYROXINE SODIUM 112 MCG TABLET PO SCH (07:04)
[2018-10-07] MEDS: ASPIRIN 81 MG TAB.CHEW PO SCH (07:23)
[2018-10-07] MEDS: INSULIN LISPRO 1 UNIT/0.01 ML UNIT SQ SCH ×4 (07:23→20:26)
[2018-10-07] MEDS: LOSARTAN 25 MG TABLET PO SCH (07:23)
[2018-10-07] MEDS: ENOXAPARIN 40 MG/0.4 ML SYRINGE SQ SCH ×2 (07:24→07:25)
[2018-10-07] MEDS: LACTOBACILLUS 1 CAPSULE PO SCH ×2 (07:24→20:27)
--- NOTE | 2018-10-07 10:22 | Internal Med Progress Note ---
Medical - PN: Subj Patient information: Note initiated : 10/07/18 at 10:16 am Service Date, if different from initiated Date: [] Patient: Charlotte Keller a 83 y/o F admitted on 10/04/18 for Shortness of breath. Chief Complaint: [] Interval history: Ms. Keller is a 83 year old F Who originally presented to ED about 4 days ago with acute exacerbation COPD. She was given azithromycin and prednisone. She felt after the second day she thought she was going to start improving but then she got worse again. She ariane cribed his full body aches severe fatigue continued productive cough and shortness of breath. Because of the continued symptoms she came in the ER she is found to be hypoxic at 85% on room air. Chest x-ray is unremarkable ABG okay other than her oxygen being a little low. Lactate was okay labs unremarkable. She is all tachycardic and tachypneic tachypneic. She said she had a "breathing study" done outpatient and is following up with Dr. Alvarez, it was not a sleep study. Because of her failing outpatient treatment for COPD exacerbation she was thus admitted. Denies any chest pain has occasional headache no nausea vomiting. She has had some diarrhea since Monday. 1/4 Shortness of breath overnight. Has a productive cough. Does ambulate about 100 feet and is short of breath afterwards. Occasional headache. And some nausea whenever she coughs. Cough productive of green sputum. Diarrhea started last night. C. difficile negative, start Imodium. 1/5 Patient very short of breath and unable to talk in full sentences. Ongoing bronchodilators/supplement oxygen and steroids. Continue PT OT 10/07-patient experiencing spells of coughing fits and dyspneic at rest. Nurse concerned about diminished airway with prolonged respiratory excursion. On 3 L oxygen. However clinically improved since previous day. No fever chills or other concerns per staff. Gets very short of breath with minimal exertion. Review of Systems: denies fever/chills/vomiting/chest or abdominal pain. Otherwise see above. - Constitutional Vitals: Vital Signs Temp Pulse Resp BP Pulse Ox 98.5 F 92 H 20 146/88 93 10/07/18 07:00 10/07/18 08:42 10/07/18 08:42 10/07/18 07:00 10/07/18 08:30 Period Temp Pulse Resp BP Sys/Park Pulse Ox Last 24 Hr 97.5 F-98.5 F 88-118 18-22 135-163/72-100 92-96 Intake and Output 10/06/18 10/07/18 10/07/18 21:59 05:59 13:59 Intake Total 750 / 750 Output Total 1650 / 1950 300 / 1950 100 / 100 Balance -1650 / -1200 450 / -1200 -100 / -100 Weight 63.503 kg Intake & Output: Intake & Output 10/06/18 10/07/18 10/07/18 21:59 05:59 13:59 Intake Total 750 / 750 Output Total 1650 / 1950 300 / 1950 100 / 100 Balance -1650 / -1200 450 / -1200 -100 / -100 Weight 63.503 kg Intake: IV 150 / 150 Oral 600 / 600 Output: Void Amount 1650 / 1950 300 / 1950 100 / 100 Other: Urine Appearance Clear Clear Urine Color Bright Yellow Bright Yellow Urine Odor Normal Stool Size Small Small Stool Color Brown Brown Stool Consistency Loose Formed # Voids 1 # Bowel Movements 1 1 Exam: General: Alert, Awake, No acute Distress Eyes/N/T: EOMI, Head/Neck: neck supple, CV: RRR, No murmurs, normal s1/s2 Pulm: Bilateral wheezing and mild rhonchi Abd: soft, nontender, +BS x4 Ext: no clubbing/cyanosis/edema Neuro: Alert, no focal deficits, moves all extremities, Skin: warm/dry Medical - PN: Obj Da - Labs CBC & Chem 7: 10/05/18 04:00 10/06/18 04:22 Labs: Abnormal Lab Results 10/06/18 10/05/18 10/05/18 04:22 04:00 04:00 Gran % 91.2 H Lymph % (Auto) 4.6 L Gran # 9.2 H Lymph # (Auto) 0.5 L Carbon Dioxide 20 L Glucose 157 H 160 H Phosphorus 1.8 L AST 53 H Lactate Dehydrogenase 387 H 285 H Meds: Medications Acetaminophen (Tylenol) 650 mg PO Q6HP PRN PRN Reason: PAIN/FEVER > 101 Hydrocodone Bitart/Acetaminophen ([place] 5/325mg) 1 tab PO BIDP PRN PRN Reason: pain, s/p breast cancer Last Admin: 10/06/18 21:21 Dose: 1 tab Documented by: Albuterol Sulfate (Ventolin) 2.5 mg NEB Q2HP PRN PRN Reason: Shortness Of Breath Albuterol/Ipratropium (Duoneb) 3 ml NEB Q6HRT [facility] Last Admin: 10/07/18 08:32 Dose: 3 ml Documented by: Aspirin (Aspirin) 81 mg PO DAILY [facility] Last Admin: 10/07/18 07:23 Dose: 81 mg Documented by: Dextrose (Dextrose 50%) 0 ml IV UD PRN PRN Reason: Hypoglycemia Diagnostic Test (Pha) (Accu-Chek) 1 each FS ACHS [facility] Last Admin: 10/07/18 07:23 Dose: 1 each Documented by: Enoxaparin Sodium (Lovenox) 40 mg SQ DAILY [facility] Last Admin: 10/07/18 07:25 Dose: Not Given Documented by: Glucose (Insta-Glucose) 15 gm PO PRN PRN PRN Reason: Hypoglycemia Levofloxacin (Levaquin) 750 mg in 150 mls @ 100 mls/hr IV Q48H [facility] Last Infusion: 10/06/18 22:12 Dose: Infused Documented by: Insulin Human Lispro (Humalog) 0 unit SQ [facility]; Protocol Last Admin: 10/07/18 07:23 Dose: Not Given Documented by: Lactobacillus Rhamnosus (Culturelle) 1 cap PO BID [facility] Last Admin: 10/07/18 07:24 Dose: 1 cap Documented by: Levothyroxine Sodium (Synthroid) 112 mcg PO ACB [facility] Last Admin: 10/07/18 07:04 Dose: 112 mcg Documented by: Loperamide HCl (Imodium) 2 mg PO PRN PRN PRN Reason: Diarrhea Losartan Potassium (Cozaar) 50 mg PO QDAY [facility] Last Admin: 10/07/18 07:23 Dose: 50 mg Documented by: Methylprednisolone Sodium Succinate (Solu-Medrol) 40 mg IV Q8 [facility] Last Admin: 10/07/18 06:00 Dose: 40 mg Documented by: Ondansetron HCl (Zofran) 4 mg IV Q6HP PRN PRN Reason: Nausea And Vomiting Budesonide/Formoterol Fumarate [Symbicort 160-4.5 Mcg] Inhaler 1 dose INH BID [facility] Last Admin: 10/07/18 07:24 Dose: 1 dose Documented by: Ropinirole HCl (Requip) 1 mg PO DAILY@1200 [facility] Last Admin: 10/06/18 14:11 Dose: 1 mg Documented by: Sodium Chloride (Saline Flush) 10 ml IV Q8 [facility] Last Admin: 10/07/18 06:00 Dose: 10 ml Documented by: Medical - PN: A/P - Time Spent With Patient Total time spent is greater than 50% in coordination of care (as documented) at patient's floor/unit and/or counseling patient: - Narrative A/P Narrative: A: *AECOPD(does not use oxygen at home but is currently being evaluated for): Failed outpatient treatment. 2/2 RSV Infection -resp viral panel + for RSV *Acute on chronic hypoxic respiratory failure: 2/2 above -on 2L [place] *Hypokalemia: resolved *Hypertension: home med losartan *Chronic pain: *Hypothyroidism: *diarrhea: likely abx induced. c.diff neg P: -Steroids (Wean), damian/prn nebs, -IS/Acapella -empiric Abx -IVF's -O2 support -pt/ot -imodium -ppx: lovenox Medical - PN: Qual - Stroke Symptom Onset Unknown: No - VTE Deep Vein Thrombosis/Pulmonary Embolism Present on Admission: No
[2018-10-07] MEDS: rOPINIRole 1 MG TABLET PO SCH (11:37)
[2018-10-07] MEDS: HYDROcodone/APAP 5/325MG TABLET PO PRN ×2 (11:37→20:27)
[2018-10-07] MEDS: ALBUTEROL SULFATE 2.5 MG/3 ML NEBULIZER NEB PRN (15:00)
[2018-10-07] MEDS ORDERED: methylPREDNISolone SOD SUCC 40 MG/ML VIAL IV SCH (21:00)
[2018-10-08] MEDS: IPRATROPIUM/ALBUTEROL 3 ML AMPUL.NEB NEB SCH ×4 (00:36→18:57)
[2018-10-08] MEDS: 0.9 % SODIUM CHLORIDE 10 ML SYRINGE IV SCH ×3 (05:07→22:12)
[2018-10-08 05:36] LABS: Mean Cell Volume 91.1 fL (80.0-100.0); Mean Corpuscular HGB Conc 32.1 g/dL (31.0-36.0); Platelet Count 278 K/mcL (140-440); RBC 4.95 M/mcL (4.00-5.20); Red Cell Distribution Width 13.4 % (11.5-14.5)
[2018-10-08 05:51] LABS: ALT/SGPT 45 U/l (0-40); Albumin 3.3 gm/dL (3.2-5.2); Albumin/Globulin Ratio 1.7 (1.0-2.3); Alkaline Phosphatase 45 U/L (39-117); Bilirubin,Direct < 0.2 mg/dL (0.0-0.3); Blood Urea Nitrogen 18 mg/dl (8-23); Gamma Glutamyl Transpeptidase 34 U/L (5-36); Uric Acid 3.6 mg/dL (2.5-8.0)
[2018-10-08 06:12] LABS: Band Neutrophils % 4 % (0-10); Lymphocytes % 6 % (15-49); Monocytes % (Manual) 2 % (1-12); Platelet Estimate NORMAL (NORMAL); RBC Morphology NORMAL (NORMAL); Segmented Neutrophils % 87 % (38-78)
[2018-10-08] MEDS: LEVOTHYROXINE SODIUM 112 MCG TABLET PO SCH (06:16)
[2018-10-08] MEDS ORDERED: cloNIDine HCL 0.1 MG TABLET PO PRN (06:54)
--- NOTE | 2018-10-08 06:55 | Internal Med Progress Note ---
Medical - PN: Subj Patient information: Note initiated : 10/08/18 at 6:48 am Service Date, if different from initiated Date: [] Patient: Charoltte Keller a 83 y/o F admitted on 10/04/18 for Shortness of breath. Chief Complaint: [] Interval history: Ms. Keller is a 83 year old F Who originally presented to ED about 4 days ago with acute exacerbation COPD. She was given azithromycin and prednisone. She felt after the second day she thought she was going to start improving but then she got worse again. She desc ribed his full body aches severe fatigue continued productive cough and shortness of breath. Because of the continued symptoms she came in the ER she is found to be hypoxic at 85% on room air. Chest x-ray is unremarkable ABG okay other than her oxygen being a little low. Lactate was okay labs unremarkable. She is all tachycardic and tachypneic tachypneic. She said she had a "breathing study" done outpatient and is following up with Dr. Alvarez, it was not a sleep study. Because of her failing outpatient treatment for COPD exacerbation she was thus admitted. Denies any chest pain has occasional headache no nausea vomiting. She has had some diarrhea since Monday. 1/4 Shortness of breath overnight. Has a productive cough. Does ambulate about 100 feet and is short of breath afterwards. Occasional headache. And some nausea whenever she coughs. Cough productive of green sputum. Diarrhea started last night. C. difficile negative, start Imodium. 1/ Patient very short of breath and unable to talk in full sentences. Ongoing bronchodilators/supplement oxygen and steroids. Continue PT OT 10/07-patient experiencing spells of coughing fits and dyspneic at rest. Nurse concerned about diminished airway with prolonged respiratory excursion. On 3 L oxygen. However clinically improved since previous day. No fever chills or other concerns per staff. Gets very short of breath with minimal exertion. 1/ Feels like her cough is more productive, not she is able to get more phlegm out and is opening up, and in that way it feels better to her. Cough is still quite deep. Shortness of breath is improving since decompensating several days ago. stools thickening up now. Review of Systems: denies headache/fever/chills/nausea/vomiting/chest or abdominal pain. Otherwise see above. - Constitutional Vitals: Vital Signs Temp Pulse Resp BP Pulse Ox 97.6 F 85 22 161/92 94 10/08/18 03:51 10/08/18 03:51 10/08/18 03:51 10/08/18 03:51 10/08/18 03:51 Period Temp Pulse Resp BP Sys/Park Pulse Ox Last 24 Hr 97.5 F-98.6 F 79-113 18-22 141-180/88-96 93-97 Intake and Output 10/07/18 10/08/18 10/08/18 21:59 05:59 13:59 Intake Total 240 / 390 150 / 390 Output Total 1050 / 1500 350 / 1500 Balance -810 / -1110 -200 / -1110 Weight 65.091 kg Intake & Output: Intake & Output 10/07/18 10/08/18 10/08/18 21:59 05:59 13:59 Intake Total 240 / 390 150 / 390 Output Total 1050 / 1500 350 / 1500 Balance -810 / -1110 -200 / -1110 Weight 65.091 kg Intake: Oral 240 / 390 150 / 390 Output: Void Amount 1050 / 1500 350 / 1500 Other: Meal Dinner Percent of Meal Consumed 75% Urine Appearance Clear Urine Color Bright Yellow Urine Odor Normal # Voids 1 Exam: General: Alert, Awake, No acute Distress Eyes/N/T: EOMI, Head/Neck: neck supple, CV: RRR, No murmurs, normal s1/s2 Pulm: Bilateral wheezing and mild rhonchi Abd: soft, nontender, +BS x4 Ext: no clubbing/cyanosis/edema Neuro: Alert, no focal deficits, moves all extremities, Skin: warm/dry Medical - PN: Obj Da - Labs CBC & Chem 7: 10/08/18 04:11 10/08/18 04:11 Labs: Abnormal Lab Results 10/08/18 10/08/18 10/06/18 04:11 04:11 04:22 WBC 17.6 H Seg Neutrophils % 87 H Lymphocytes % 6 L Carbon Dioxide Glucose 152 H 157 H Phosphorus AST 53 H ALT 45 H Lactate Dehydrogenase 351 H 387 H Total Protein 5.3 L Globulin 2.0 L 10/05/18 04:00 WBC Seg Neutrophils % Lymphocytes % Carbon Dioxide 20 L Glucose 160 H Phosphorus 1.8 L AST ALT Lactate Dehydrogenase 285 H Total Protein Globulin Meds: Medications Acetaminophen (Tylenol) 650 mg PO Q6HP PRN PRN Reason: PAIN/FEVER > 101 Hydrocodone Bitart/Acetaminophen ([place] 5/325mg) 1 tab PO BIDP PRN PRN Reason: pain, s/p breast cancer Last Admin: 10/07/18 20:27 Dose: 1 tab Documented by: Albuterol Sulfate (Ventolin) 2.5 mg NEB Q2HP PRN PRN Reason: Shortness Of Breath Last Admin: 10/07/18 15:00 Dose: 2.5 mg Documented by: Albuterol/Ipratropium (Duoneb) 3 ml NEB Q6HRT [facility] Last Admin: 10/08/18 00:36 Dose: 3 ml Documented by: Aspirin (Aspirin) 81 mg PO DAILY [facility] Last Admin: 10/07/18 07:23 Dose: 81 mg Documented by: Dextrose (Dextrose 50%) 0 ml IV UD PRN PRN Reason: Hypoglycemia Diagnostic Test (Pha) (Accu-Chek) 1 each FS [facility] Last Admin: 10/07/18 20:26 Dose: 1 each Documented by: Enoxaparin Sodium (Lovenox) 40 mg SQ DAILY [facility] Last Admin: 10/07/18 07:25 Dose: Not Given Documented by: Glucose (Insta-Glucose) 15 gm PO PRN PRN PRN Reason: Hypoglycemia Levofloxacin (Levaquin) 750 mg in 150 mls @ 100 mls/hr IV Q48H [facility] Last Infusion: 10/06/18 22:12 Dose: Infused Documented by: Insulin Human Lispro (Humalog) 0 unit SQ [facility]; Protocol Last Admin: 10/07/18 20:26 Dose: Not Given Documented by: Lactobacillus Rhamnosus (Culturelle) 1 cap PO BID [facility] Last Admin: 10/07/18 20:27 Dose: 1 cap Documented by: Levothyroxine Sodium (Synthroid) 112 mcg PO ACB [facility] Last Admin: 10/08/18 06:16 Dose: 112 mcg Documented by: Loperamide HCl (Imodium) 2 mg PO PRN PRN PRN Reason: Diarrhea Losartan Potassium (Cozaar) 50 mg PO QDAY [facility] Last Admin: 10/07/18 07:23 Dose: 50 mg Documented by: Methylprednisolone Sodium Succinate (Solu-Medrol) 40 mg IV Q12 [facility] Last Admin: 10/07/18 20:33 Dose: 40 mg Documented by: Ondansetron HCl (Zofran) 4 mg IV Q6HP PRN PRN Reason: Nausea And Vomiting Budesonide/Formoterol Fumarate [Symbicort 160-4.5 Mcg] Inhaler 1 dose INH BID [facility] Last Admin: 10/07/18 20:32 Dose: 1 dose Documented by: Ropinirole HCl (Requip) 1 mg PO DAILY@1200 [facility] Last Admin: 10/07/18 11:37 Dose: 1 mg Documented by: Sodium Chloride (Saline Flush) 10 ml IV Q8 [facility] Last Admin: 10/08/18 05:07 Dose: 10 ml Documented by: Medical - PN: A/P - Time Spent With Patient Total time spent is greater than 50% in coordination of care (as documented) at patient's floor/unit and/or counseling patient: - Narrative A/P Narrative: A: *AECOPD(does not use oxygen at home but is currently being evaluated for): Failed outpatient treatment. 2/2 RSV Infection -resp viral panel + for RSV *Acute on chronic hypoxic respiratory failure: 2/2 above -on 2L NC *leukocytosis: likely reactive/steroids, no bandemia, afebrile, *Hypokalemia: resolved *Hypertension: home med losartan & hctz *Chronic pain: *Hypothyroidism: *diarrhea: likely abx induced. c.diff neg, improved P: -Steroids (Wean), damian/prn nebs, -IS/Acapella -empiric Abx -IVF's -O2 support -cont home ARB, hold hctz for now, prn clonidine -pt/ot -imodium -ppx: lovenox Medical - PN: Qual - Stroke Symptom Onset Unknown: No - VTE Deep Vein Thrombosis/Pulmonary Embolism Present on Admission: No
[2018-10-08] MEDS ORDERED: guaiFENesin 600 MG TAB.SR.12H PO ONE (07:47)
[2018-10-08] MEDS: HYDROcodone/APAP 5/325MG TABLET PO PRN ×2 (07:50→15:45)
[2018-10-08] MEDS: LACTOBACILLUS 1 CAPSULE PO SCH ×2 (07:50→20:26)
[2018-10-08] MEDS: LOSARTAN 25 MG TABLET PO SCH (07:50)
[2018-10-08] MEDS: ASPIRIN 81 MG TAB.CHEW PO SCH (07:50)
[2018-10-08] MEDS: Budesonide/Formoterol Fumarate [Symbicort 160-4.5 MCG] Inhaler INH SCH ×2 (07:51→20:30)
[2018-10-08] MEDS: ENOXAPARIN 40 MG/0.4 ML SYRINGE SQ SCH (07:51)
[2018-10-08] MEDS: INSULIN LISPRO 1 UNIT/0.01 ML UNIT SQ SCH ×4 (07:51→20:29)
[2018-10-08] MEDS: LEVOFLOXACIN 750 MG/150 ML BAG IV SCH (08:52)
--- NOTE | 2018-10-08 09:39 | XRay Report ---
CLINICAL INFORMATION: dyspnea COMPARISON: None. FINDINGS: Heart size, mediastinum and pulmonary vessels are normal. Lung volumes are elevated and there is wall thickening of the bronchi suggesting chronic bronchitis or asthma. No infiltrates or effusions. Mild old compression fractures of the mid thoracic spine are unchanged IMPRESSION: COPD - no acute disease Interpreted and Authenticated by: David Xie 10/08/18
[2018-10-08] MEDS: rOPINIRole 1 MG TABLET PO SCH (11:55)
[2018-10-08] MEDS: methylPREDNISolone SOD SUCC 40 MG/ML VIAL IV SCH ×2 (13:21→22:11)
[2018-10-08] MEDS: ALBUTEROL SULFATE 2.5 MG/3 ML NEBULIZER NEB PRN ×2 (17:14→23:09)
--- NOTE | 2018-10-08 20:16 | Consultation ---
DATE OF CONSULTATION: 10/08/2018 PULMONARY CONSULTATION REQUESTING PHYSICIAN: Dr. Martinez. CONSULTING PHYSICAL: Dr. Alvarez. HISTORY OF PRESENT ILLNESS: The patient is an 83-year-old female who was admitted on 10/04/2018. She indicates that she has had approximately a 2-week gradual deterioration in her respiratory status. She had been seen by myself in the clinic approximately 1 to 2 months ago. She had had repeat pulmonary function study testing done in early September. This had demonstrated progression of her chronic obstructive pulmonary disease. Unfortunately, the patient had consumed tobacco and worked in second-hand smoke environment. She quit personal use of tobacco in the early . Unfortunately, she was left with significant residual from that process. The patient reported progressive dyspnea which had her report to the Emergency Room on a couple of occasions and eventually she had sufficient deterioration in her oxygen level to be considered a candidate for admission. Viral panels demonstrated the presence of RSV subtype B. She has been receiving appropriate bronchodilators and conservative care since that time. Her course has been one of gradual improvement. PAST MEDICAL HISTORY: Regarding pulmonary issues is as recorded in my consultation here in the electronic medical record. REVIEW OF SYSTEMS: Without additional focus of abnormality on questioning in a detailed fashion except as recorded above. Chest pains, dependent edema or other issues of concern. PHYSICAL EXAMINATION: GENERAL: The patient is a pleasant, mildly distraught with her condition, 83-year-old female in no acute distress at this time. HEENT: Atraumatic and normocephalic. NECK: Supple. LUNGS: Have significantly decreased breath sounds in all lung keith with scattered wheeze and rare rhonchus. HEART: Regular S1, S2. There is no gallop, rub, jugular venous distention or dependent edema. ABDOMEN: Soft. Bowel sounds are present. No mass or organomegaly. LABORATORY DATA: Collected during this hospitalization included serial CBC with an elevated white count at 17.6 earlier today. Perhaps a response to steroids, perhaps some risk for superimposing infection, although she only has 4 bands and 87 neutrophils. A venous blood gas had a lactic acid at the time of presentation of 1.4. Chemistries have demonstrated some mild hypokalemia as well as some elevated blood sugars on steroid therapy. LDH has been elevated. Protein has significantly decreased through her time course and protein calorie nutrition would be perhaps in need of further support. Chest radiographs have not demonstrated acute changes. IMPRESSION: An 83-year-old female with baseline significant chronic obstructive pulmonary disease secondary to remote tobacco use. That disease had been progressive when reassessed recently. She is now afflicted with RSV-B with significant airway edema and respiratory difficulty in that regard. Her course she was informed will be one of gradual but fairly slow improvement given the nature of her insult. She is encouraged to think positively and work with the process to increase her strength and breathing. Expectation would be for a good outcome with the question being what if any residual deficit will be accumulated with his transient illness. Thank you for the opportunity to review the patient's care at this time. PLAN: I agree with bronchodilators and antibiotics currently in place. I would look forward to seeing her after she gets through with her hospitalization and perhaps a step in a rehab facility to see where we are and how to proceed for ongoing care. Thank you for the opportunity to participate again. MACKENZIEP:jaren Job ID: [id number] Doc ID: [id number] Randal Alvarez MD
[2018-10-08] MEDS: guaiFENesin 600 MG TAB.SR.12H PO SCH ×4 (20:27→20:31)
[2018-10-09] MEDS: IPRATROPIUM/ALBUTEROL 3 ML AMPUL.NEB NEB SCH ×4 (00:33→19:18)
[2018-10-09] MEDS: HYDROcodone/APAP 5/325MG TABLET PO PRN ×3 (00:58→21:54)
[2018-10-09 05:57] LABS: Basophils # (Auto) 0 K/mcL (0.0-0.3); Basophils % (Auto) 0 % (0.0-2.0); Eosinophils # (Auto) 0 K/mcL (0.0-0.7); Eosinophils % (Auto) 0 % (0.0-7.0); Granulocytes % (Auto) 94.4 % (38.0-78.0); Lymphocytes # (Auto) 0.6 K/mcL (1.5-4.8); Lymphocytes % (Auto) 3.2 % (15.5-49.0); Mean Cell Volume 90.3 fL (80.0-100.0); Mean Corpuscular HGB Conc 32.8 g/dL (31.0-36.0); Monocytes # (Auto) 0.4 K/mcL (0.1-0.9); Monocytes % (Auto) 2.4 % (1.0-12.0); Platelet Count 257 K/mcL (140-440); RBC 4.87 M/mcL (4.00-5.20); Red Cell Distribution Width 13.2 % (11.5-14.5)
[2018-10-09] MEDS: 0.9 % SODIUM CHLORIDE 10 ML SYRINGE IV SCH ×3 (06:26→21:55)
[2018-10-09] MEDS: LEVOTHYROXINE SODIUM 112 MCG TABLET PO SCH (06:26)
[2018-10-09] MEDS: methylPREDNISolone SOD SUCC 40 MG/ML VIAL IV SCH (06:26)
--- NOTE | 2018-10-09 06:47 | Internal Med Progress Note ---
Medical - PN: Subj Patient information: Note initiated : 10/09/18 at 6:44 am Service Date, if different from initiated Date: [] Patient: Charlotte Keller a 83 y/o F admitted on 10/04/18 for Shortness of breath. Chief Complaint: [] Interval history: Ms. Keller is a 83 year old F Who originally presented to ED about 4 days ago with acute exacerbation COPD. She was given azithromycin and prednisone. She felt after the second day she thought she was going to start improving but then she got worse again. She desc ribed his full body aches severe fatigue continued productive cough and shortness of breath. Because of the continued symptoms she came in the ER she is found to be hypoxic at 85% on room air. Chest x-ray is unremarkable ABG okay other than her oxygen being a little low. Lactate was okay labs unremarkable. She is all tachycardic and tachypneic tachypneic. She said she had a "breathing study" done outpatient and is following up with Dr. Alvarez, it was not a sleep study. Because of her failing outpatient treatment for COPD exacerbation she was thus admitted. Denies any chest pain has occasional headache no nausea vomiting. She has had some diarrhea since Monday. 1/4 Shortness of breath overnight. Has a productive cough. Does ambulate about 100 feet and is short of breath afterwards. Occasional headache. And some nausea whenever she coughs. Cough productive of green sputum. Diarrhea started last night. C. difficile negative, start Imodium. 1/ Patient very short of breath and unable to talk in full sentences. Ongoing bronchodilators/supplement oxygen and steroids. Continue PT OT 10/07-patient experiencing spells of coughing fits and dyspneic at rest. Nurse concerned about diminished airway with prolonged respiratory excursion. On 3 L oxygen. However clinically improved since previous day. No fever chills or other concerns per staff. Gets very short of breath with minimal exertion. 1 Feels like her cough is more productive, not she is able to get more phlegm out and is opening up, and in that way it feels better to her. Cough is still quite deep. Shortness of breath is improving since decompensating several days ago. stools thickening up now. 10/09 Her shortness of breath becomes worse at night. She has a cough which is sometimes difficult to cough up the phlegm. Overall she feels like she is improving every day, feeling like her breathing is 65% back to normal. And she feels like she is doing better with physical therapy as well. Review of Systems: denies headache/fever/chills/nausea/vomiting/chest or abdominal pain. Otherwise see above. - Constitutional Vitals: Vital Signs Temp Pulse Resp BP Pulse Ox 97.5 F 88 20 120/90 93 10/09/18 04:36 10/09/18 04:36 10/09/18 04:36 10/09/18 04:36 10/09/18 04:36 Period Temp Pulse Resp BP Sys/Park Pulse Ox Last 24 Hr 97.2 F-98.1 F 74-90 18-24 120-158/90-95 93-96 Intake and Output 10/08/18 10/09/18 10/09/18 21:59 05:59 13:59 Intake Total 150 / 610 100 / 610 Output Total 1200 / 2300 900 / 2300 Balance -1050 / -1690 -800 / -1690 Weight 64.864 kg Intake & Output: Intake & Output 10/08/18 10/09/18 10/09/18 21:59 05:59 13:59 Intake Total 150 / 610 100 / 610 Output Total 1200 / 2300 900 / 2300 Balance -1050 / -1690 -800 / -1690 Weight 64.864 kg Intake: IV 150 / 150 Oral 100 / 460 Output: Urine Catheter Amount 650 / 650 Void Amount 1200 / 1650 250 / 1650 Other: Meal Dinner Percent of Meal Consumed 50% Urine Appearance Clear Urine Color Bright Yellow Exam: General: Alert, Awake, No acute Distress Eyes/N/T: EOMI, Head/Neck: neck supple, CV: RRR, No murmurs, normal s1/s2 Pulm: Better aeration. Mild expiratory wheezing. Abd: soft, nontender, +BS x4 Ext: no clubbing/cyanosis/edema Neuro: Alert, no focal deficits, moves all extremities, Skin: warm/dry Medical - PN: Obj Da - Labs CBC & Chem 7: 10/09/18 04:20 10/08/18 04:11 Labs: Abnormal Lab Results 10/09/18 10/08/18 10/08/18 04:20 04:11 04:11 WBC 17.4 H 17.6 H Gran % 94.4 H Lymph % (Auto) 3.2 L Gran # 16.4 H Lymph # (Auto) 0.6 L Seg Neutrophils % 87 H Lymphocytes % 6 L Glucose 152 H ALT 45 H Lactate Dehydrogenase 351 H Total Protein 5.3 L Globulin 2.0 L Meds: Medications Acetaminophen (Tylenol) 650 mg PO Q6HP PRN PRN Reason: PAIN/FEVER > 101 Hydrocodone Bitart/Acetaminophen ([place] 5/325mg) 1 tab PO BIDP PRN PRN Reason: pain, s/p breast cancer Last Admin: 10/09/18 00:58 Dose: 1 tab Documented by: Albuterol Sulfate (Ventolin) 2.5 mg NEB Q2HP PRN PRN Reason: Shortness Of Breath Last Admin: 10/08/18 23:09 Dose: 2.5 mg Documented by: Albuterol/Ipratropium (Duoneb) 3 ml NEB Q6HRT [facility] Last Admin: 10/09/18 00:33 Dose: 3 ml Documented by: Aspirin (Aspirin) 81 mg PO DAILY [facility] Last Admin: 10/08/18 07:50 Dose: 81 mg Documented by: Clonidine HCl (Catapres) 0.1 mg PO QIDP PRN PRN Reason: SBP>150 Dextrose (Dextrose 50%) 0 ml IV UD PRN PRN Reason: Hypoglycemia Diagnostic Test (Pha) (Accu-Chek) 1 each FS [facility] Last Admin: 10/08/18 20:28 Dose: 1 each Documented by: Enoxaparin Sodium (Lovenox) 40 mg SQ DAILY [facility] Last Admin: 10/08/18 07:51 Dose: Not Given Documented by: Glucose (Insta-Glucose) 15 gm PO PRN PRN PRN Reason: Hypoglycemia Guaifenesin (Mucinex) 600 mg PO BID [facility] Stop: 10/09/18 21:01 Last Admin: 10/08/18 20:31 Dose: 600 mg Documented by: Levofloxacin (Levaquin) 750 mg in 150 mls @ 100 mls/hr IV Q24H [facility] Insulin Human Lispro (Humalog) 0 unit SQ [facility]; Protocol Last Admin: 10/08/18 20:29 Dose: Not Given Documented by: Lactobacillus Rhamnosus (Culturelle) 1 cap PO BID [facility] Last Admin: 10/08/18 20:26 Dose: 1 cap Documented by: Levothyroxine Sodium (Synthroid) 112 mcg PO ACB [facility] Last Admin: 10/09/18 06:26 Dose: 112 mcg Documented by: Loperamide HCl (Imodium) 2 mg PO PRN PRN PRN Reason: Diarrhea Losartan Potassium (Cozaar) 50 mg PO QDAY [facility] Last Admin: 10/08/18 07:50 Dose: 50 mg Documented by: Methylprednisolone Sodium Succinate (Solu-Medrol) 20 mg IV Q8 [facility] Last Admin: 10/09/18 06:26 Dose: 20 mg Documented by: Ondansetron HCl (Zofran) 4 mg IV Q6HP PRN PRN Reason: Nausea And Vomiting Budesonide/Formoterol Fumarate [Symbicort 160-4.5 Mcg] Inhaler 1 dose INH BID [facility] Last Admin: 10/08/18 20:30 Dose: 1 dose Documented by: Ropinirole HCl (Requip) 1 mg PO DAILY@1200 [facility] Last Admin: 10/08/18 11:55 Dose: 1 mg Documented by: Sodium Chloride (Saline Flush) 10 ml IV Q8 [facility] Last Admin: 10/09/18 06:26 Dose: 10 ml Documented by: Medical - PN: A/P - Time Spent With Patient Total time spent is greater than 50% in coordination of care (as documented) at patient's floor/unit and/or counseling patient: - Narrative A/P Narrative: A: *AECOPD(does not use oxygen at home but is currently being evaluated for): Failed outpatient treatment. 2/2 RSV Infection -resp viral panel + for RSV *Acute on chronic hypoxic respiratory failure: 2/2 above -on 1.5L NC *leukocytosis: likely reactive/steroids, no bandemia, afebrile, *Hypokalemia: resolved *Hypertension: home med losartan & hctz *Chronic pain: *Hypothyroidism: *diarrhea: likely abx induced. c.diff neg, improved P: -Steroids (Wean), damian/prn nebs, -IS/Acapella -empiric Abx -seen by pulmonology -O2 support -cont home ARB, hold hctz for now, prn clonidine -pt/ot -imodium -ppx: lovenox Medical - PN: Qual - Stroke Symptom Onset Unknown: No - VTE Deep Vein Thrombosis/Pulmonary Embolism Present on Admission: No
[2018-10-09] MEDS: INSULIN LISPRO 1 UNIT/0.01 ML UNIT SQ SCH ×4 (08:16→19:45)
[2018-10-09] MEDS: LEVOFLOXACIN 750 MG/150 ML BAG IV SCH ×2 (08:16→08:35)
[2018-10-09] MEDS: LOSARTAN 25 MG TABLET PO SCH ×2 (08:16→08:34)
[2018-10-09] MEDS: guaiFENesin 600 MG TAB.SR.12H PO SCH ×2 (08:16→19:44)
[2018-10-09] MEDS: LACTOBACILLUS 1 CAPSULE PO SCH ×2 (08:16→19:44)
[2018-10-09] MEDS: ASPIRIN 81 MG TAB.CHEW PO SCH (08:16)
[2018-10-09] MEDS: ENOXAPARIN 40 MG/0.4 ML SYRINGE SQ SCH (08:17)
[2018-10-09] MEDS: Budesonide/Formoterol Fumarate [Symbicort 160-4.5 MCG] Inhaler INH SCH ×2 (08:17→19:45)
[2018-10-09] MEDS ORDERED: methylPREDNISolone SOD SUCC 40 MG/ML VIAL IV SCH ×2 (09:00→14:00)
[2018-10-09] MEDS: LEVOFLOXACIN 750 MG TABLET PO SCH (09:35)
[2018-10-09] MEDS: rOPINIRole 1 MG TABLET PO SCH ×2 (12:27→19:44)
[2018-10-09] MEDS: NYSTATIN 500,000 UNITS/5 ML ORAL.SUSP SSW SCH ×2 (17:14→19:44)
[2018-10-10] MEDS: IPRATROPIUM/ALBUTEROL 3 ML AMPUL.NEB NEB SCH ×6 (01:08→22:39)
[2018-10-10] MEDS: 0.9 % SODIUM CHLORIDE 10 ML SYRINGE IV SCH ×3 (04:06→20:33)
[2018-10-10 05:41] LABS: Basophils # (Auto) 0 K/mcL (0.0-0.3); Basophils % (Auto) 0 % (0.0-2.0); Eosinophils # (Auto) 0 K/mcL (0.0-0.7); Eosinophils % (Auto) 0.2 % (0.0-7.0); Granulocytes % (Auto) 86.1 % (38.0-78.0); Lymphocytes # (Auto) 1.2 K/mcL (1.5-4.8); Lymphocytes % (Auto) 6.5 % (15.5-49.0); Mean Cell Volume 91.3 fL (80.0-100.0); Mean Corpuscular HGB Conc 32.2 g/dL (31.0-36.0); Monocytes # (Auto) 1.3 K/mcL (0.1-0.9); Monocytes % (Auto) 7.2 % (1.0-12.0); Platelet Count 236 K/mcL (140-440); Red Cell Distribution Width 13.1 % (11.5-14.5)
[2018-10-10 05:56] LABS: ALT/SGPT 37 U/l (0-40); Albumin 2.9 gm/dL (3.2-5.2); Albumin/Globulin Ratio 1.6 (1.0-2.3); Alkaline Phosphatase 40 U/L (39-117); Bilirubin,Direct < 0.2 mg/dL (0.0-0.3); Blood Urea Nitrogen 18 mg/dl (8-23); Gamma Glutamyl Transpeptidase 36 U/L (5-36); Uric Acid 2.9 mg/dL (2.5-8.0)
[2018-10-10] MEDS: NYSTATIN 500,000 UNITS/5 ML ORAL.SUSP SSW SCH ×4 (07:48→20:30)
[2018-10-10] MEDS: LACTOBACILLUS 1 CAPSULE PO SCH ×2 (07:48→20:30)
[2018-10-10] MEDS: predniSONE 20 MG TABLET PO SCH (07:48)
[2018-10-10] MEDS: LEVOTHYROXINE SODIUM 112 MCG TABLET PO SCH (07:48)
[2018-10-10] MEDS: LEVOFLOXACIN 750 MG TABLET PO SCH (07:49)
[2018-10-10] MEDS: LOSARTAN 25 MG TABLET PO SCH (07:49)
[2018-10-10] MEDS: ASPIRIN 81 MG TAB.CHEW PO SCH (07:49)
[2018-10-10] MEDS: Budesonide/Formoterol Fumarate [Symbicort 160-4.5 MCG] Inhaler INH SCH ×2 (07:51→20:33)
[2018-10-10] MEDS: ENOXAPARIN 40 MG/0.4 ML SYRINGE SQ SCH (07:51)
[2018-10-10] MEDS: guaiFENesin 600 MG TAB.SR.12H PO SCH ×2 (10:58→20:30)
--- NOTE | 2018-10-10 12:35 | Internal Med Progress Note ---
Medical - PN: Subj Patient information: Note initiated : 10/10/18 at 12:33 pm Service Date, if different from initiated Date: [] Patient: Charlotte Keller a 83 y/o F admitted on 10/04/18 for Shortness of breath. Chief Complaint: [] Interval history: Ms. Keller is a 83 year old F Who originally presented to ED about 4 days ago with acute exacerbation COPD. She was given azithromycin and prednisone. She felt after the second day she thought she was going to start improving but then she got worse again. She ariane cribed his full body aches severe fatigue continued productive cough and shortness of breath. Because of the continued symptoms she came in the ER she is found to be hypoxic at 85% on room air. Chest x-ray is unremarkable ABG okay other than her oxygen being a little low. Lactate was okay labs unremarkable. She is all tachycardic and tachypneic tachypneic. She said she had a "breathing study" done outpatient and is following up with Dr. Alvarez, it was not a sleep study. Because of her failing outpatient treatment for COPD exacerbation she was thus admitted. Denies any chest pain has occasional headache no nausea vomiting. She has had some diarrhea since Monday. 1/4 Shortness of breath overnight. Has a productive cough. Does ambulate about 100 feet and is short of breath afterwards. Occasional headache. And some nausea whenever she coughs. Cough productive of green sputum. Diarrhea started last night. C. difficile negative, start Imodium. 1/ Patient very short of breath and unable to talk in full sentences. Ongoing bronchodilators/supplement oxygen and steroids. Continue PT OT 10/07-patient experiencing spells of coughing fits and dyspneic at rest. Nurse concerned about diminished airway with prolonged respiratory excursion. On 3 L oxygen. However clinically improved since previous day. No fever chills or other concerns per staff. Gets very short of breath with minimal exertion. 1 Feels like her cough is more productive, not she is able to get more phlegm out and is opening up, and in that way it feels better to her. Cough is still quite deep. Shortness of breath is improving since decompensating several days ago. stools thickening up now. 10/09 Her shortness of breath becomes worse at night. She has a cough which is sometimes difficult to cough up the phlegm. Overall she feels like she is improving every day, feeling like her breathing is 65% back to normal. And she feels like she is doing better with physical therapy as well. 10/10 Patient seen and examined, still is very short of breath somewhat better but quite disappointed that this is not getting better as fast as she would like. Denies any new complaints or concerns, WBC trending up, patient wants some Mucinex Pertinent ROS: Denies headache, dizziness Denies chest pain, palpitations Cough and shortness of breath is stable Denies abdominal pain, nausea or vomiting. - Constitutional Vitals: Vital Signs Temp Pulse Resp BP Pulse Ox 98.3 F 78 18 138/87 93 10/10/18 11:35 10/10/18 11:35 10/10/18 11:35 10/10/18 11:35 10/10/18 11:35 Period Temp Pulse Resp BP Sys/Park Pulse Ox Last 24 Hr 97.7 F-98.3 F 65-99 16-22 131-158/78-94 92-96 Intake and Output 10/09/18 10/10/18 10/10/18 21:59 05:59 13:59 Intake Total 560 / 910 350 / 910 Output Total 1200 / 1400 200 / 1400 1000 / 1000 Balance -640 / -490 150 / -490 -1000 / -1000 Weight 144 lb Intake & Output: Intake & Output 10/09/18 10/10/18 10/10/18 21:59 05:59 13:59 Intake Total 560 / 910 350 / 910 Output Total 1200 / 1400 200 / 1400 1000 / 1000 Balance -640 / -490 150 / -490 -1000 / -1000 Weight 144 lb Intake: Oral 560 / 910 350 / 910 Output: Void Amount 1200 / 1400 200 / 1400 1000 / 1000 Other: Meal Lunch Breakfast Percent of Meal Consumed 100% 100% Feeding Ability Assist with Tray Set Up Urine Appearance Clear Clear Urine Color Straw Pale Urine Odor Normal Normal Stool Size Small Stool Color Brown Stool Consistency Formed Exam: Constitutional; Afebrile, cooperative, alert, not in distress. Eyes- No icterus, , No periorbital swelling Ears- Ext ear normal, hearing normal to conversation. Neck- Midline trachea, supple Respiratory system: Air Entry equal on both sides, decreased air entry bilaterally, bilateral expiratory wheezing present patient speaking full sentences does get short of breath on minimal ambulation no accessory muscle use noted CVS- Rate rhythm regular, S1,S2 heard, no gallop, no rub. Abdomen- Soft nontender abdomen, no organomegaly, no tenderness, no guarding or rigidity, PHYSICIAN SPECIALIST- AOOx3, moving all extremities, no gross focal deficit noted. Medical - PN: Obj Da - Labs CBC & Chem 7: 10/10/18 04:30 10/10/18 04:30 Labs: Abnormal Lab Results 10/10/18 10/10/18 10/09/18 04:30 04:30 04:20 WBC 18.1 H 17.4 H Gran % 86.1 H 94.4 H Lymph % (Auto) 6.5 L 3.2 L Gran # 15.6 H 16.4 H Lymph # (Auto) 1.2 L 0.6 L Taylor # (Auto) 1.3 H Seg Neutrophils % Lymphocytes % Carbon Dioxide 31 H Glucose Phosphorus 2.3 L ALT Lactate Dehydrogenase 311 H Total Protein 4.7 L Albumin 2.9 L Globulin 1.8 L 10/08/18 10/08/18 04:11 04:11 WBC 17.6 H Gran % Lymph % (Auto) Gran # Lymph # (Auto) Taylor # (Auto) Seg Neutrophils % 87 H Lymphocytes % 6 L Carbon Dioxide Glucose 152 H Phosphorus ALT 45 H Lactate Dehydrogenase 351 H Total Protein 5.3 L Albumin Globulin 2.0 L Meds: Medications Acetaminophen (Tylenol) 650 mg PO Q6HP PRN PRN Reason: PAIN/FEVER > 101 Last Admin: 10/09/18 08:16 Dose: 650 mg Documented by: Hydrocodone Bitart/Acetaminophen ([place] 5/325mg) 1 tab PO Q6HP PRN PRN Reason: PAIN LEVEL 3-6 Last Admin: 10/09/18 21:54 Dose: 1 tab Documented by: Albuterol Sulfate (Ventolin) 2.5 mg NEB Q2HP PRN PRN Reason: Shortness Of Breath Last Admin: 10/08/18 23:09 Dose: 2.5 mg Documented by: Albuterol/Ipratropium (Duoneb) 3 ml NEB Q4HRT [facility] Aspirin (Aspirin) 81 mg PO DAILY LIDIA Last Admin: 10/10/18 07:49 Dose: 81 mg Documented by: Clonidine HCl (Catapres) 0.1 mg PO QIDP PRN PRN Reason: SBP>150 Enoxaparin Sodium (Lovenox) 40 mg SQ DAILY [facility] Last Admin: 10/10/18 07:51 Dose: Not Given Documented by: Guaifenesin (Mucinex) 600 mg PO BID [facility] Last Admin: 10/10/18 10:58 Dose: 600 mg Documented by: Lactobacillus Rhamnosus (Culturelle) 1 cap PO BID [facility] Last Admin: 10/10/18 07:48 Dose: 1 cap Documented by: Levofloxacin (Levaquin) 750 mg PO DAILY [facility] Last Admin: 10/10/18 07:49 Dose: 750 mg Documented by: Levothyroxine Sodium (Synthroid) 112 mcg PO ACB [facility] Last Admin: 10/10/18 07:48 Dose: 112 mcg Documented by: Loperamide HCl (Imodium) 2 mg PO PRN PRN PRN Reason: Diarrhea Losartan Potassium (Cozaar) 50 mg PO QDAY [facility] Last Admin: 10/10/18 07:49 Dose: 50 mg Documented by: Nystatin (Nystatin) 500,000 units SSW QID [facility] Last Admin: 10/10/18 07:48 Dose: 500,000 units Documented by: Ondansetron HCl (Zofran) 4 mg IV Q6HP PRN PRN Reason: Nausea And Vomiting Budesonide/Formoterol Fumarate [Symbicort 160-4.5 Mcg] Inhaler 1 dose INH BID [facility] Last Admin: 10/10/18 07:51 Dose: Not Given Documented by: Prednisone (Prednisone) 40 mg PO [facility] Last Admin: 10/10/18 07:48 Dose: 40 mg Documented by: Ropinirole HCl (Requip) 1 mg PO BID@1200,2100 [facility] Last Admin: 10/09/18 19:44 Dose: 1 mg Documented by: Sodium Chloride (Saline Flush) 10 ml IV Q8 [facility] Last Admin: 10/10/18 04:06 Dose: Not Given Documented by: Medical - PN: A/P - Time Spent With Patient Total time spent is greater than 50% in coordination of care (as documented) at patient's floor/unit and/or counseling patient: - Narrative A/P Narrative: A: *AECOPD(does not use oxygen at home but is currently being evaluated for): Failed outpatient treatment. 2/2 RSV Infection -resp viral panel + for RSV *Acute on chronic hypoxic respiratory failure: 2/2 above -on 1.5L NC *leukocytosis: likely reactive/steroids, no bandemia, afebrile, *Hypokalemia: resolved *Hypertension: home med losartan & hctz *Chronic pain: *Hypothyroidism: *diarrhea: likely abx induced. c.diff neg, improved P: -Continue steroids, bronchodilators duo nebs no every 4 hours Aggressive pulmonary toilet Continue levofloxacin Appreciate pulmonary input Continue oxygen supplementation, Start the patient on Mucinex Check pro calcitonin in a.m. cont home ARB, hold hctz for now, prn clonidine pt/ot imodium ppx: lovenox Medical - PN: Qual - Stroke Symptom Onset Unknown: No - VTE Deep Vein Thrombosis/Pulmonary Embolism Present on Admission: No
[2018-10-10] MEDS: rOPINIRole 1 MG TABLET PO SCH ×2 (13:22→20:30)
[2018-10-10] MEDS: HYDROcodone/APAP 5/325MG TABLET PO PRN (20:30)
[2018-10-11] MEDS: IPRATROPIUM/ALBUTEROL 3 ML AMPUL.NEB NEB SCH ×3 (03:44→11:20)
[2018-10-11 06:56] LABS: Basophils # (Auto) 0 K/mcL (0.0-0.3); Basophils % (Auto) 0 % (0.0-2.0); Eosinophils # (Auto) 0 K/mcL (0.0-0.7); Eosinophils % (Auto) 0.3 % (0.0-7.0); Granulocytes % (Auto) 85.4 % (38.0-78.0); Lymphocytes # (Auto) 1.5 K/mcL (1.5-4.8); Lymphocytes % (Auto) 8.6 % (15.5-49.0); Mean Cell Volume 90.7 fL (80.0-100.0); Mean Corpuscular HGB Conc 32.2 g/dL (31.0-36.0); Monocytes % (Auto) 5.7 % (1.0-12.0); Platelet Count 244 K/mcL (140-440); RBC 5.03 M/mcL (4.00-5.20); Red Cell Distribution Width 13.2 % (11.5-14.5)
[2018-10-11] MEDS: Budesonide/Formoterol Fumarate [Symbicort 160-4.5 MCG] Inhaler INH SCH (07:03)
[2018-10-11] MEDS: predniSONE 20 MG TABLET PO SCH (07:25)
[2018-10-11] MEDS: LEVOTHYROXINE SODIUM 112 MCG TABLET PO SCH (07:25)
[2018-10-11 07:40] LABS: ALT/SGPT 41 U/l (0-40); Albumin 3.3 gm/dL (3.2-5.2); Albumin/Globulin Ratio 1.8 (1.0-2.3); Alkaline Phosphatase 43 U/L (39-117); Bilirubin,Direct < 0.2 mg/dL (0.0-0.3); Blood Urea Nitrogen 15 mg/dl (8-23); Gamma Glutamyl Transpeptidase 41 U/L (5-36); Uric Acid 2.7 mg/dL (2.5-8.0)
[2018-10-11] MEDS: HYDROcodone/APAP 5/325MG TABLET PO PRN (08:23)
[2018-10-11] MEDS: LEVOFLOXACIN 750 MG TABLET PO SCH (09:44)
[2018-10-11] MEDS: guaiFENesin 600 MG TAB.SR.12H PO SCH (09:44)
[2018-10-11] MEDS: LOSARTAN 25 MG TABLET PO SCH (09:44)
[2018-10-11] MEDS: NYSTATIN 500,000 UNITS/5 ML ORAL.SUSP SSW SCH ×2 (09:44→12:40)
[2018-10-11] MEDS: LACTOBACILLUS 1 CAPSULE PO SCH (09:44)
[2018-10-11] MEDS: ASPIRIN 81 MG TAB.CHEW PO SCH (09:44)
[2018-10-11] MEDS: ENOXAPARIN 40 MG/0.4 ML SYRINGE SQ SCH (09:47)
--- NOTE | 2018-10-11 11:06 | Discharge Summary ---
Medical - DS: Prov Patient information: Note initiated : 10/11/18 at 10:51 am Service Date, if different from initiated Date: [] Patient: Charlotte Keller 83 y/o F admitted on 10/04/18 for Shortness of breath. Chief Complaint: [] Date of admission: 10/04/18 08:25 Discharge date: 10/11/18 Primary care physician: Cristobal Shay MD Consults: 10/04/18 Consult to Physician [CONS] Stat Comment: Consulting Provider: Leoncio Martinez Reason For Exam: Physician to Consult 10/08/18 08:05 Consult to Physician [CONS] Routine Comment: Consulting Provider: Randal Alvarez Reason For Exam: Physician to Consult Discharging clinician: Katherine Daniels Medical - DS: Meds - Discharge Medications Prescriptions: guaiFENesin [Mucinex] 600 mg PO BID #14 tab.sr.12h HYDROcodone/APAP 5/325MG [[place]ti 5-325Mg] 1 tab PO BID PRN #20 tab PRN Reason: pain, s/p breast cancer predniSONE [Prednisone] 10 mg PO QAC #23 tab Active and Home Medications: Home Medications ascorbic acid (vitamin C) 500 mg tablet 500 mg PO QDAY 06/27/17 [History Confirmed 10/04/18 Last Taken 10/03/18] aspirin 81 mg tablet,delayed release 81 mg PO QDAY 06/27/17 [History Confirmed 10/04/18 Last Taken 10/03/18] vitamin E (dl, acetate) 1,000 unit capsule 1,000 unit PO QDAY 06/27/17 [History Confirmed 10/04/18 Last Taken 10/03/18 18:00] cyanocobalamin (vit B-12) 1,000 mcg sublingual tablet 1,000 mcg SUBLINGUAL QDAY 02/12/18 [History Confirmed 10/04/18 Last Taken 10/03/18] albuterol sulfate HFA 90 mcg/actuation aerosol inhaler 180 mcg INHALATION Q6H PRN #18 g 06/05/18 [Rx Confirmed 10/04/18 Last Taken 10/04/18] hydrochlorothiazide 12.5 mg capsule 12.5 mg PO QDAY #90 cap 06/05/18 [Rx Confirmed 10/04/18 Last Taken 10/03/18] levothyroxine 112 mcg tablet 112 mcg PO QDAY #90 tab 07/03/18 [Rx Confirmed 10/04/18 Last Taken 10/03/18] cholecalciferol (vitamin D3) 1,000 unit capsule 2,000 unit PO QDAY cap 07/25/18 [History Confirmed 10/04/18 Last Taken 10/03/18] omega-3 fatty acids 1,000 mg capsule 1,000 mg PO DAILY cap 07/25/18 [History Confirmed 10/04/18 Last Taken 10/03/18 18:00] budesonide-formoterol HFA 160 mcg-4.5 mcg/actuation aerosol inhaler 2 puff INHALATION BID #10.2 g 08/03/18 [Rx Confirmed 10/04/18 Last Taken 10/03/18] hydrocodone 5 mg-acetaminophen 325 mg tablet 1 tab PO BID PRN #60 tab 09/10/18 [Rx Confirmed 10/04/18 Last Taken 10/03/18] losartan 50 mg tablet 50 mg PO QDAY #90 tab 10/03/18 [Rx Confirmed 10/04/18 Last Taken 10/03/18] Nebulizer [Vixone Nebulizer] 1 each INH CONT 10/04/18 [History Confirmed 10/04/18 Last Taken Unknown] rOPINIRole HCL [Requip] 1 mg PO BIDP PRN 10/04/18 [History Confirmed 10/09/18 Last Taken 10/03/18 12:00] Medical - DS: Hosp Hospital course: Ms. Keller is a 83 year old F Who originally presented to ED about 4 days ago with acute exacerbation COPD. She was given azithromycin and prednisone. She felt after the second day she thought she was going to start improving but then she got worse again. She described his full body aches severe fatigue continued productive cough and shortness of breath. Because of the continued symptoms she came in the ER she is found to be hypoxic at 85% on room air. Chest x-ray is unremarkable ABG okay other than her oxygen being a little low. Lactate was okay labs unremarkable. She is all tachycardic and tachypneic tachypneic. She said she had a "breathing study" done outpatient and is following up with Dr. Alvarez, it was not a sleep study. Because of her failing outpatient treatment for COPD exacerbation she was thus admitted. Denies any chest pain has occasional headache no nausea vomiting. She has had some diarrhea since Monday. 10/05 Shortness of breath overnight. Has a productive cough. Does ambulate about 100 feet and is short of breath afterwards. Occasional headache. And some nausea whenever she coughs. Cough productive of green sputum. Diarrhea started last night. C. difficile negative, start Imodium. 10/06 Patient very short of breath and unable to talk in full sentences. Ongoing bronchodilators/supplement oxygen and steroids. Continue PT OT 10/07-patient experiencing spells of coughing fits and dyspneic at rest. Nurse concerned about diminished airway with prolonged respiratory excursion. On 3 L oxygen. However clinically improved since previous day. No fever chills or other concerns per staff. Gets very short of breath with minimal exertion. 10/08 Feels like her cough is more productive, not she is able to get more phlegm out and is opening up, and in that way it feels better to her. Cough is still quite deep. Shortness of breath is improving since decompensating several days ago. stools thickening up now. 10/09 Her shortness of breath becomes worse at night. She has a cough which is sometimes difficult to cough up the phlegm. Overall she feels like she is improving every day, feeling like her breathing is 65% back to normal. And she feels like she is doing better with physical therapy as well. 10/10 Patient seen and examined, still is very short of breath somewhat better but quite disappointed that this is not getting better as fast as she would like. Denies any new complaints or concerns, WBC trending up, patient wants some Mucinex 10/11 Pt seen examined, doing much better today, shortness of brath improved, wheezing improved, feels much better. Stable for discharge Labs stable, completed antibiotic course. In summary Acute COPD exacerbation -Treated with steroids, duonebs and antibiotics, she responded well to treatment. will be discharged on a steroid taper and duonebs. She will resume all her home medications as before. Hypoxia -noted during the hospital stay, concern that she may need oxygen therapy for alf, at the time of discharge her oxygen sat is 90% no room air. Leucocytosis -stable, likely from steroids, clinically much better. Discharge diagnosis: COPD exacerbation - Time Spent with Patient Total time spent providing and/or coordinating discharge services: Greater than 30 minutes Medical - DS: Exam - Constitutional Vitals: Vital Signs Temp Pulse Pulse Pulse Resp BP Pulse Ox 10/11/18 08:00 97.5 F 66 18 117/62 94 10/11/18 07:29 90 18 95 10/11/18 07:28 90 18 10/11/18 04:00 97.3 F 72 18 144/76 95 10/11/18 03:44 68 20 10/11/18 00:00 98.1 F 78 18 158/78 93 10/10/18 22:39 80 18 10/10/18 18:56 98.6 F 88 18 140/80 94 10/10/18 18:13 80 16 10/10/18 16:00 97.9 F 85 16 145/81 18 L 10/10/18 14:37 80 18 10/10/18 11:35 98.3 F 78 18 138/87 93 Intake and Output 10/10/18 10/11/18 10/11/18 21:59 05:59 13:59 Intake Total 240 / 590 350 / 590 Output Total 1000 / 2800 800 / 2800 Balance -760 / -2210 -450 / -2210 Intake: Oral 240 / 590 350 / 590 Output: Void Amount 1000 / 2800 800 / 2800 Other: Meal Lunch Percent of Meal Consumed 100% Urine Appearance Clear Urine Color Straw Urine Odor Normal Weight 144 lb Additional comments: Constitutional; Afebrile, cooperative, alert, not in distress. Eyes- No icterus, , No periorbital swelling Ears- Ext ear normal, hearing normal to conversation. Neck- Midline trachea, supple Respiratory system: Air Entry equal on both sides, No crackles or wheezing, no rhonchi. CVS- Rate rhythm regular, S1,S2 heard, no gallop, no rub. Abdomen- Soft nontender abdomen, no organomegaly, no tenderness, no guarding or rigidity, PARTITION NOTCHER- AOOx3, moving all extremities, no gross focal deficit noted. Medical - DS: Data Labs on day of discharge: Labs from last 24 hours 10/11/18 10/11/18 10/11/18 04:20 04:20 04:20 WBC 17.6 H RBC 5.03 Hgb 14.7 Hct 45.6 MCV 90.7 MCH 29.2 MCHC 32.2 RDW 13.2 Plt Count 244 MPV 8.5 Gran % 85.4 H Lymph % (Auto) 8.6 L Parmer % (Auto) 5.7 Eos % (Auto) 0.3 Baso % (Auto) 0 Gran # 15.1 H Lymph # (Auto) 1.5 Parmer # (Auto) 1.0 H Eos # (Auto) 0 Baso # (Auto) 0 Sodium 141 Potassium 4.2 Chloride 99 Carbon Dioxide 30 Anion Gap 12.0 BUN 15 Creatinine 0.6 GFR Calculation 84 Glucose 74 Uric Acid 2.7 Calcium 8.9 Phosphorus 2.5 L Magnesium 2.2 Total Bilirubin 0.5 Direct Bilirubin < 0.2 GGT 41 H AST 26 ALT 41 H Alkaline Phosphatase 43 Lactate Dehydrogenase 339 H Total Protein 5.1 L Albumin 3.3 Globulin 1.8 L Albumin/Globulin Ratio 1.8 Triglycerides 128 Procalcitonin < 0.05 Medical - DS: A/P - Patient/Caregiver Discharge Instructions Activity: as per physical therapy, wear oxygen at all times (as needed to keep oxygen saturation > 90) Diet: Regular Diet Additional Instructions: Follow up with PCP in 1 Go to the ER if worsening symptoms, chest pain, shortness of breath or any other acute concern. Continue with rehab at SNF Oxygen as needed to keep osat > 90 Steroid taper as prescribed - Follow up Plan Follow up with: Cristobal Shay MD [Primary Care Provider] - (Please call/[facility] fol low up.) Disposition: Xfer SNF Prognosis: Fair Rehab Potential: Fair I certify that the patient requires SNF services: Yes Overall status at discharge: patient is progressing back to baseline Medical - DS: Qual - VTE Deep Vein Thrombosis/Pulmonary Embolism Present on Admission: No
[2018-10-11] MEDS: rOPINIRole 1 MG TABLET PO SCH (12:41)
== END 2018-10-11 13:10 | DRG 190 ==
LOC: ED 05:08 → MEDSUR 08:25
PROVIDERS: ADMIT Internal Medicine; ATTEND Internal Medicine

== ENCOUNTER 2019-11-04 19:19 | Observation (INO) ==
[2019-11-04] MEDS ORDERED: methylPREDNISolone SOD SUCC 125 MG/2 ML VIAL IV ONE (19:35)
[2019-11-04] MEDS ORDERED: LACTATED RINGERS 1,000 ML IV ONE (19:35)
[2019-11-04] MEDS ORDERED: IPRATROPIUM/ALBUTEROL 3 ML AMPUL.NEB NEB ONE ×2 (19:35→22:51)
[2019-11-04] MEDS ORDERED: ACETAMINOPHEN W/CODEINE #3 1 TABLET PO ONE (19:39)
--- NOTE | 2019-11-04 19:40 | Emergency Department Note ---
General Adult HPI - General Chief complaint: Cold/Flu Symptoms Stated complaint: cough, weakness Time Seen by Provider: 11/04/19 19:27 Source: patient Mode of arrival: ambulatory Limitations: no limitations - History of Present Illness HPI Narrative: 84-year-old female with history of cough 9 weeks, significant history of COPD, just the last 24 hours, she's been coughing worse, cough is nonproductive, she does have midsternal chest discomfort when she coughs, but otherwise denies chest pain, she is on oxygen and she's had a crank up her oxygen to 3 L of. - Related Data Home Medications Medication Instructions Recorded Confirmed ascorbic acid (vitamin C) 500 mg 500 mg PO QDAY 06/27/17 11/04/19 tablet cyanocobalamin (vitamin B-12) 1,000 mcg SUBLINGUAL QDAY 02/12/18 11/04/19 1,000 mcg sublingual tablet cholecalciferol (vitamin D3) 25 2,000 unit PO QDAY cap 07/25/18 11/04/19 mcg (1,000 unit) capsule Nebulizer [Vixone Nebulizer] 1 each INH CONT 10/04/18 11/04/19 Fluticasone/Vilanterol [Breo 1 inh IH DAILY 11/04/19 11/04/19 Ellipta 100-25 Mcg INH] Previous Rx's Medication Instructions Recorded ropinirole 1 mg tablet 1 mg PO BIDP PRN #90 tab 02/22/19 metoprolol tartrate 50 mg tablet 50 mg PO Q12H #180 tab 05/01/19 losartan 50 mg tablet 100 mg PO QDAY #180 tab 05/24/19 levothyroxine 112 mcg tablet 112 mcg PO QDAY #90 tab 07/22/19 montelukast 10 mg tablet See Rx Instructions .ROUTE 09/18/19 .COMPLEX #90 tablet Allergies Allergy/AdvReac Type Severity Reaction Status Date / Time celecoxib [From CELEBREX] Allergy Unknown Unknown Verified 10/09/19 14:14 clindamycin [From CLEOCIN] Allergy Unknown Unknown Verified 10/09/19 14:14 Diclofenac Allergy Unknown Unknown Verified 10/09/19 14:14 [From ARTHROTEC 50] misoprostol Allergy Unknown Unknown Verified 10/09/19 14:14 [From ARTHROTEC 50] triamcinolone [From KENALOG] Allergy Unknown Unknown Verified 10/09/19 14:14 morphine [MORPHINE] AdvReac Intermediate Hallucinati Verified 10/09/19 14:14 ons lisinopril [LISINOPRIL] AdvReac Mild COUGH Verified 10/09/19 14:14 Review of Systems All systems ED: reviewed and negative except as stated. Past Medical History - Past Medical History Source: nursing notes reviewed Medical history: Reports: arthritis, COPD, hypertension, osteoporosis, pn eumonia, other (history of breast cancer) Surgical history ED: Reports: cholecystectomy, orthopedic, other - Social History smoking status: Former smoker Alcohol use: Reports: Rarely Physical Exam Limitations: no limitations General appearance: alert Head: atraumatic, normocephalic Eye: Present: normal appearance, PERRL, EOMI ENT: Present: normal exam, normal oropharynx, mucous membranes moist Neck: Present: normal inspection, full ROM Chest: Present: normal inspection, symmetric chest wall rise Respiratory: Present: respiratory distress, wheezes, accessory muscle use, prolonged expiratory phase, decreased breath sounds Cardiovascular: Present: regular rate, normal rhythm, normal heart sounds Abdominal: Present: soft, normal bowel sounds. Absent: distention, tenderness, guarding, rebound Extremities: Present: normal inspection, full ROM. Absent: pedal edema Back: Present: normal inspection. Absent: CVA tenderness (R), CVA tenderness (L) Neurological: Present: alert, oriented X3 Psychiatric: Present: normal affect Skin: Present: warm, dry, normal color Course - Reevaluation(s) Reevaluation #1: Patient was started on IV fluids, IV Solu-Medrol, chest x-ray obtained as well as baseline laboratory studies. The. Her influenza swab came back positive for influenza A as well as influenza B . She was started on DuoNeb treatments as she had significant component of wheezing up. We did do an arterial blood gas and her CO2 was reasonable. Normal pH. She desaturated to 70% with just moving in the room to go to the bathroom. This was despite being on 3 L of. Also chest x-ray was reviewed, was thought to be negative for acute infiltrates, laboratory studies, not too impressive, with normal white count, however, her LFTs are elevated and that she may have viral hepatitis as well. Final diagnosis is #1. Acute cough with influenza. #2. COPD exacerbation. #3. Viral hepatitis. Reevaluation #2: Discussed hospital admission with Dr. Maidson Vital Signs Temperature 98.1 F 11/04/19 19:20 Pulse Rate 78 11/04/19 19:20 Respiratory Rate 20 11/04/19 19:20 Blood Pressure 125/79 11/04/19 19:20 Pulse Oximetry (%) 92 11/04/19 19:20 Temperature 98.1 F 11/04/19 19:20 Pulse Rate 84 11/04/19 23:08 Respiratory Rate 18 11/04/19 23:08 Blood Pressure 134/75 11/04/19 23:00 Pulse Oximetry (%) 94 11/04/19 23:00 Medical Decision Making - MDM Narrative Medical decision making narrative: Impression is COPD exacerbation. #2. Influenza respiratory infection - Lab Data Lab results reviewed: Yes I reviewed the patient's lab results. Result diagrams: 11/04/19 19:50 11/04/19 22:05 Lab Results 11/04/19 11/04/19 11/04/19 Range/Units 19:50 19:50 19:50 WBC 6.8 (4.50-11.00) K/mcL RBC 4.58 (3.59-5.38) M/mcL Hgb 14.0 (11.2-15.7) g/dL Hct 42.6 (34.1-44.9) % MCV 93.0 (80.0-100.0) fL MCH 30.6 (26.0-34.0) pg MCHC 32.9 (31.0-36.0) g/dL RDW 13.2 (11.5-14.5) % Plt Count 147 (140-440) K/mcL MPV 10.7 H (7.4-10.4) fL Gran % 74.6 (38.0-78.0) % Lymph % (Auto) 12.6 L (15.5-49.0) % Ocean % (Auto) 9.3 (1.0-12.0) % Eos % (Auto) 3.1 (0.0-7.0) % Baso % (Auto) 0.4 (0.0-2.0) % Gran # 5.08 (1.80-8.00) K/mcL Lymph # (Auto) 0.86 L (1.50-4.80) K/mcL [place] # (Auto) 0.63 (0.10-0.90) K/mcL Eos # (Auto) 0.21 (0.00-0.70) K/mcL Baso # (Auto) 0.03 (0.00-0.30) K/mcL VBG Lactic Acid 1.0 (0.5-2.0) mmol/L Sodium TNP Potassium TNP Chloride TNP Carbon Dioxide TNP Anion Gap TNP BUN TNP Creatinine TNP GFR Calculation TNP Glucose TNP Calcium TNP Total Bilirubin TNP AST TNP ALT TNP Alkaline Phosphatase TNP C-Reactive Protein TNP Total Protein TNP Albumin TNP Globulin TNP Albumin/Globulin Ratio TNP Urine Color Urine Appearance Urine pH (5.0-9.0) Ur Specific [place] (1.000-1.035) Urine Protein (NEG) mg/dL Urine Glucose (UA) (NEG) mg/dL Urine Ketones (NEG) mg/dL Urine Occult Blood (<0.03) mg/dL Urine Nitrate (NEG) Urine Bilirubin (NEG) mg/dL Urine Urobilinogen (NEG) mg/dL Ur Leukocyte Esterase (NEG) /uL Urine RBC (0-1) /hpf Urine WBC (0-4) /hpf Ur Squamous Epith Cells (0-4) /hpf Urine Bacteria (0) /hpf Urine Mucus (0) /hpf Ur Culture Indicated? 11/04/19 11/04/19 Range/Units 20:55 22:05 WBC (4.50-11.00) K/mcL RBC (3.59-5.38) M/mcL Hgb (11.2-15.7) g/dL Hct (34.1-44.9) % MCV (80.0-100.0) fL MCH (26.0-34.0) pg MCHC (31.0-36.0) g/dL RDW (11.5-14.5) % Plt Count (140-440) K/mcL MPV (7.4-10.4) fL Gran % (38.0-78.0) % Lymph % (Auto) (15.5-49.0) % Ocean % (Auto) (1.0-12.0) % Eos % (Auto) (0.0-7.0) % Baso % (Auto) (0.0-2.0) % Gran # (1.80-8.00) K/mcL Lymph # (Auto) (1.50-4.80) K/mcL [place] # (Auto) (0.10-0.90) K/mcL Eos # (Auto) (0.00-0.70) K/mcL Baso # (Auto) (0.00-0.30) K/mcL VBG Lactic Acid (0.5-2.0) mmol/L Sodium 136 Potassium 4.0 Chloride 100 Carbon Dioxide 25 Anion Gap 11.0 BUN 15 Creatinine 0.7 GFR Calculation 80 Glucose 120 H Calcium 9.5 Total Bilirubin 0.4 AST 226 H ALT 294 H Alkaline Phosphatase 82 C-Reactive Protein 2.8 H Total Protein 5.4 L Albumin 3.4 Globulin 2.0 L Albumin/Globulin Ratio 1.7 Urine Color Yellow Urine Appearance Clear Urine pH 5.0 (5.0-9.0) Ur Specific [place] 1.016 (1.000-1.035) Urine Protein Neg (NEG) mg/dL Urine Glucose (UA) Negative (NEG) mg/dL Urine Ketones Neg (NEG) mg/dL Urine Occult Blood Neg (<0.03) mg/dL Urine Nitrate Pos A (NEG) Urine Bilirubin Neg (NEG) mg/dL Urine Urobilinogen Neg (NEG) mg/dL Ur Leukocyte Esterase 25 A (NEG) /uL Urine RBC 2 H (0-1) /hpf Urine WBC 17 H (0-4) /hpf Ur Squamous Epith Cells < 1 (0-4) /hpf Urine Bacteria Few A (0) /hpf Urine Mucus Few (0) /hpf Ur Culture Indicated? Yes - Radiology Data Radiology results reviewed: Yes I reviewed the patient's radiology results. Disposition Pt seen by PYROTECHNIST/PA only: No Clinical Impression: Acute exacerbation of chronic obstructive airways disease, Upper respiratory infection, Influenza A, Influenza B, Chest discomfort, Viral hepatitis Disposition: Xfer As Inpt ([facility]) Condition: Fair Referrals: Cristobal Shay MD, FAAFP [Primary Care Provider] -
[2019-11-04] MEDS ORDERED: OSELTAMIVIR PHOSPHATE 75 MG CAPSULE PO ONE (20:04)
[2019-11-04 20:38] LABS: Basophils # (Auto) 0.03 K/mcL (0.00-0.30); Basophils % (Auto) 0.4 % (0.0-2.0); Eosinophils # (Auto) 0.21 K/mcL (0.00-0.70); Eosinophils % (Auto) 3.1 % (0.0-7.0); Granulocytes % (Auto) 74.6 % (38.0-78.0); Hematocrit 42.6 % (34.1-44.9); Lymphocytes # (Auto) 0.86 K/mcL (1.50-4.80); Lymphocytes % (Auto) 12.6 % (15.5-49.0); Mean Corpuscular HGB Conc 32.9 g/dL (31.0-36.0); Mean Platelet Volume 10.7 fL (7.4-10.4); Monocytes # (Auto) 0.63 K/mcL (0.10-0.90); Monocytes % (Auto) 9.3 % (1.0-12.0); Platelet Count 147 K/mcL (140-440); RBC 4.58 M/mcL (3.59-5.38); Red Cell Distribution Width 13.2 % (11.5-14.5); WBC 6.8 K/mcL (4.50-11.00)
[2019-11-04] MEDS ORDERED: LEVOFLOXACIN 500 MG/100 ML BAG IV ONE (20:43)
[2019-11-04] MEDS ORDERED: ONDANSETRON 4 MG/2 ML VIAL IV ONE (22:02)
[2019-11-04 22:14] LABS: Appearance,Urine CLEAR; Bacteria,Urine FEW /hpf (0); Bilirubin,Urine NEG (NEG); Color,Urine YELLOW; Culture Indicated,Urine YES; Glucose,Urine (UA) NEGATIVE (NEG); Ketones,Urine NEG (NEG); Leukocyte Esterase,Urine 25 /uL (NEG); Mucus,Urine FEW /hpf (0); Nitrate,Urine POS (NEG); Protein,Urine NEG (NEG); Specific Gravity,Urine 1.016 (1.000-1.035); Urine Blood NEG mg/dL (<0.03); Urine RBC 2 /hpf (0-1); Urine Squamous Epithelial Cell < 1 /hpf (0-4); Urine WBC 17 /hpf (0-4); Urobilinogen,Urine NEG (NEG)
[2019-11-04 22:55] LABS: ALT/SGPT 294 U/l (0-40); AST/SGOT 226 U/l (0-37); Albumin 3.4 gm/dL (3.2-5.2); Albumin/Globulin Ratio 1.7 (1.0-2.3); Alkaline Phosphatase 82 U/L (39-117); Bilirubin,Total 0.4 mg/dL (0.0-1.0); Blood Urea Nitrogen 15 mg/dl (8-23); C-Reactive Protein 2.8 mg/dl (0.0-0.8); Calcium 9.5 mg/dl (8.6-10.4); Carbon Dioxide 25 mmol/L (22-30); Chloride 100 mmol/L (96-108); Glomerular Filtration Rate 80; Glucose 120 mg/dL (70-105)
[2019-11-05] MEDS ORDERED: rOPINIRole 1 MG TABLET PO PRN (00:12)
[2019-11-05] MEDS ORDERED: METOPROLOL TARTRATE 50 MG TABLET PO SCH (00:15)
[2019-11-05] MEDS ORDERED: MONTELUKAST 10 MG TABLET PO SCH ×2 (00:15→21:00)
--- NOTE | 2019-11-05 00:23 | Internal Med History&Physical ---
Medical - H&P: HPI Patient information: Note initiated : 11/05/19 at 12:18 am Service Date, if different from initiated Date: [] Patient: Charlotte Keller a 84 y/o F admitted on for cough, weakness. Chief Complaint: [] Chief complaint: intractable cough History of present illness: Ms. Keller is a 84 year old F with COPD and on 2 lpm oxygen at baseline. The pt reports a cough for about 9 weeks. For 6 weeks pt had a productive cough with green phlegm but in the last 3 weeks actually cleared up and was less. In the last 3 days starting Monday after a drive and being out in the cold wind the pt had progressive cough and worsened Mon and Monday today to severity. Was coughing so much was hard to catch her breath. Decided to come to EMD. Found to have Influenza A and B by the POC test done in the EMD. Also found to have UTI and elevated LFTs. Pt denies fevers or chills or sweats. She is requiring 3lpm oxygen currently. - Constitutional Constitutional: Absent: chills, excessive sweating, fatigue, fever(s), lethargy - EENT Nose, mouth and throat: Absent: dysphagia, epistaxis, sore throat - Cardiovascular Cardiovascular: Absent: chest pain, diaphoresis, leg edema - Respiratory Respiratory: Present: cough, dyspnea on exertion, excessive phlegm production (last week now better), change in phlegm color (was green now better), pain with cough (mild with the severe coughing last 2 days). Absent: wheezing - Gastrointestinal Gastrointestinal: Present: other. Absent: abdominal pain, constipation, diarrhea, dysphagia Additional comments: no history of liver disease - Genitourinary Genitourinary: Present: dysuria (at end of void). Absent: difficulty urinating - Musculoskeletal Musculoskeletal: Absent: muscle weakness, myalgias - Neurological Neurological: Absent: confusion, dizziness - Hematologic/Lymphatic Hematologic/Lymphatic: Absent: easy bleeding Medical - H&P: PMH Problems Reviewed: Yes Medical history: Atrial Fibrillation COPD Hypothyroidism Surgical history: cholecystectomy appendectomy bilateral shoulder replacements left knee replaced twice Pertinent family history: brother of multiple sclerosis mom of breast cancer Social history: wants DNR status present at bedside Smoking status: Former smoker (smoked age 14 to 48) Have you smoked in the last 12 months: No Drug use: none Alcohol use: rarely Medical - H&P: Meds Home Medications Medication Instructions Recorded Confirmed Type ascorbic acid (vitamin C) 500 mg 500 mg PO QDAY 06/27/17 11/04/19 History tablet cyanocobalamin (vitamin B-12) 1,000 mcg SUBLINGUAL QDAY 02/12/18 11/04/19 History 1,000 mcg sublingual tablet cholecalciferol (vitamin D3) 25 2,000 unit PO QDAY cap 07/25/18 11/04/19 History mcg (1,000 unit) capsule Nebulizer [Vixone Nebulizer] 1 each INH CONT 10/04/18 11/04/19 History ropinirole 1 mg tablet 1 mg PO BIDP PRN #90 tab 02/22/19 11/04/19 Rx metoprolol tartrate 50 mg tablet 50 mg PO Q12H #180 tab 05/01/19 11/04/19 Rx losartan 50 mg tablet 100 mg PO QDAY #180 tab 05/24/19 11/04/19 Rx levothyroxine 112 mcg tablet 112 mcg PO QDAY #90 tab 07/22/19 11/04/19 Rx montelukast 10 mg tablet See Rx Instructions .ROUTE 09/18/19 11/04/19 Rx .COMPLEX #90 tablet Fluticasone/Vilanterol [Breo 1 inh IH DAILY 11/04/19 11/04/19 History Ellipta 100-25 Mcg INH] Allergies Allergy/AdvReac Type Severity Reaction Status Date / Time celecoxib [From CELEBREX] Allergy Unknown Unknown Verified 10/09/19 14:14 clindamycin [From CLEOCIN] Allergy Unknown Unknown Verified 10/09/19 14:14 Diclofenac Allergy Unknown Unknown Verified 10/09/19 14:14 [From ARTHROTEC 50] misoprostol Allergy Unknown Unknown Verified 10/09/19 14:14 [From ARTHROTEC 50] triamcinolone [From KENALOG] Allergy Unknown Unknown Verified 10/09/19 14:14 morphine [MORPHINE] AdvReac Intermediate Hallucinati Verified 10/09/19 14:14 ons lisinopril [LISINOPRIL] AdvReac Mild COUGH Verified 10/09/19 14:14 Medical - H&P: Exam - Constitutional Vitals: Temp Pulse Resp BP Pulse Ox 98.1 F 88 18 134/93 92 11/04/19 19:20 11/05/19 00:00 11/04/19 23:08 11/05/19 00:00 11/05/19 00:00 General appearance: average body habitus, cooperative, no acute distress - Head Head exam: Present: normal inspection - Eye Eye exam: Present: PERRL. Absent: scleral icterus - ENT ENT exam: Present: normal oropharynx Additional comments: TMs intact and pearly bilat - Expanded ENT Exam Ear exam: Absent: external canal tenderness Mouth exam: Present: moist - Neck Neck exam: Present: full ROM. Absent: lymphadenopathy, tenderness - Respiratory Respiratory exam: Present: normal respiratory exam, CTAB, prolonged expiratory phase - Cardiovascular Cardiovascular exam: Present: normal rate and rhythm, RRR Medical - H&P: Reslt - Labs CBC & Chem 7: 11/04/19 19:50 11/04/19 22:05 Labs: Short CBC 11/04/19 Range/Units 19:50 WBC 6.8 (4.50-11.00) K/mcL Hgb 14.0 (11.2-15.7) g/dL Hct 42.6 (34.1-44.9) % Plt Count 147 (140-440) K/mcL BMP 11/04/19 11/04/19 19:50 22:05 Sodium TNP 136 Potassium TNP 4.0 Chloride TNP 100 Carbon Dioxide TNP 25 BUN TNP 15 Creatinine TNP 0.7 Glucose TNP 120 H Calcium TNP 9.5 Liver Function 11/04/19 11/04/19 Range/Units 19:50 22:05 Total Bilirubin TNP 0.4 AST TNP 226 H ALT TNP 294 H Alkaline Phosphatase TNP 82 Albumin TNP 3.4 Urine 11/04/19 Range/Units 20:55 Urine Color Yellow Urine Appearance Clear Urine pH 5.0 (5.0-9.0) Ur Specific [place] 1.016 (1.000-1.035) Urine Protein Neg (NEG) mg/dL Urine Glucose (UA) Negative (NEG) mg/dL - ABG Interpretation Interpretation: abnormal Additional comments: mild low PO2 while on oxygen 3lpm Medical - H&P: A/P (1) Acute exacerbation of chronic obstructive airways disease Problem details: pt is chronically on O2 but typically 2lpm and now requiring 3lpm. Cough has been severe. Current visit: Yes Status: Acute cont levaquin due to recent green phlegm. Check sputum gram stain (2) Influenza B Problem details: high risk pt due to O2 dependent COPD Current visit: Yes Status: Acute tx with 5 days tamiflu (3) Influenza A Problem details: chronic lung disease. Had flu shot this year Current visit: Yes Status: Acute tamiflu. monitor for improvement. Pt reluctant to stay in the hospital (4) UTI (urinary tract infection) Problem details: mild symptoms but UA positive and culture pending Current visit: Yes Status: Acute Levaquin likely to cover bacteria present. follow for culture (5) Hepatitis Problem details: suspect this is due to the Influenza. repeat lab tomorrow if stable follow up in a month. low risk for newly acquired viral hepatitis. past LFTs normal Current visit: Yes Status: Acute recheck LFTs. IF stable follow up in a month. if rising will check viral hep panel and consider imaging.
[2019-11-05] MEDS ORDERED: ACETAMINOPHEN 325 MG TABLET PO PRN (00:39)
[2019-11-05] MEDS ORDERED: ONDANSETRON 4 MG/2 ML VIAL IV PRN (00:39)
[2019-11-05] MEDS: 0.9 % SODIUM CHLORIDE 1,000 ML IV SCH ×3 (00:50→22:53)
--- NOTE | 2019-11-05 03:48 | XRay Report ---
CLINICAL INFORMATION: dyspnea COMPARISON: 09/20/2019 FINDINGS: The heart is borderline enlarged. Mediastinum and pulmonary vessels are unremarkable. Minor scattered scarring in both mid and lower lungs seen as before - no lokesh infiltrates or effusions. IMPRESSION: No acute disease. Interpreted and Authenticated by: David Xie 11/05/19
[2019-11-05] MEDS: 0.9 % SODIUM CHLORIDE 10 ML SYRINGE IV SCH ×3 (05:41→23:00)
[2019-11-05] MEDS: guaiFENesin/CODEINE 10 ML UDC PO PRN ×3 (06:03→17:40)
[2019-11-05] MEDS ORDERED: LEVOTHYROXINE SODIUM 112 MCG TABLET PO SCH ×2 (07:30→09:00)
[2019-11-05] MEDS: rOPINIRole 1 MG TABLET PO PRN ×2 (08:07→22:59)
[2019-11-05] MEDS: HYDROCODONE/APAP 7.5/325MG TABLET PO SCH ×2 (08:30→20:30)
[2019-11-05] MEDS: DOCUSATE SODIUM 100 MG CAPSULE PO SCH ×2 (08:39→22:54)
[2019-11-05] MEDS: APIXABAN 5 MG TABLET PO SCH ×2 (08:39→22:59)
[2019-11-05] MEDS: METOPROLOL TARTRATE 50 MG TABLET PO SCH ×2 (08:39→22:57)
[2019-11-05] MEDS: OSELTAMIVIR PHOSPHATE 75 MG CAPSULE PO SCH ×2 (08:39→22:00)
[2019-11-05] MEDS ORDERED: ASCORBIC ACID 500 MG TABLET PO SCH ×2 (09:00)
[2019-11-05] MEDS ORDERED: FLUTICASONE INH SCH (09:00)
[2019-11-05] MEDS ORDERED: LEVOFLOXACIN 500 MG/100 ML BAG IV SCH (09:00)
[2019-11-05] MEDS ORDERED: VILANTEROL INH SCH (09:00)
[2019-11-05] MEDS ORDERED: APIXABAN 5 MG TABLET PO SCH (09:00)
[2019-11-05] MEDS ORDERED: NON FORMULARY MEDICATION 1 DOSE MISCELL (Fluticasone/Vilanterol [Breo Ellipta 100-25 Mcg I IH SCH (09:00)
[2019-11-05] MEDS ORDERED: LOSARTAN 50 MG TABLET PO SCH (09:00)
[2019-11-05] MEDS ORDERED: LOSARTAN 25 MG TABLET PO SCH (09:00)
[2019-11-05] MEDS ORDERED: guaiFENesin 600 MG TAB.SR.12H PO SCH (10:52)
[2019-11-05] MEDS: IPRATROPIUM/ALBUTEROL 3 ML AMPUL.NEB NEB PRN ×2 (11:05→14:40)
[2019-11-05] MEDS: BENZONATATE 100 MG CAPSULE PO PRN ×2 (11:12→17:37)
[2019-11-05 11:59] LABS: Basophils # (Auto) 0.02 K/mcL (0.00-0.30); Basophils % (Auto) 0.3 % (0.0-2.0); Eosinophils # (Auto) 0 K/mcL (0.00-0.70); Eosinophils % (Auto) 0 % (0.0-7.0); Granulocytes % (Auto) 80.1 % (38.0-78.0); Hematocrit 42.2 % (34.1-44.9); Hemoglobin 13.6 g/dL (11.2-15.7); Lymphocytes # (Auto) 0.79 K/mcL (1.50-4.80); Lymphocytes % (Auto) 11.9 % (15.5-49.0); Mean Cell Volume 93.6 fL (80.0-100.0); Mean Corpuscular HGB Conc 32.2 g/dL (31.0-36.0); Mean Platelet Volume 10.4 fL (7.4-10.4); Monocytes # (Auto) 0.51 K/mcL (0.10-0.90); Monocytes % (Auto) 7.7 % (1.0-12.0); Platelet Count 144 K/mcL (140-440); RBC 4.51 M/mcL (3.59-5.38); Red Cell Distribution Width 13.2 % (11.5-14.5); WBC 6.6 K/mcL (4.50-11.00)
[2019-11-05 12:18] LABS: ALT/SGPT 237 U/l (0-40); AST/SGOT 128 U/l (0-37); Albumin 3.5 gm/dL (3.2-5.2); Albumin/Globulin Ratio 1.8 (1.0-2.3); Alkaline Phosphatase 76 U/L (39-117); Bilirubin,Total 0.4 mg/dL (0.0-1.0); Blood Urea Nitrogen 11 mg/dl (8-23); Calcium 9.3 mg/dl (8.6-10.4); Carbon Dioxide 25 mmol/L (22-30); Chloride 103 mmol/L (96-108); Globulin 1.9 gm/dL (2.2-3.7); Glomerular Filtration Rate 80; Glucose 94 mg/dL (70-105)
--- NOTE | 2019-11-05 12:54 | Internal Med Progress Note ---
Medical - PN: Subj Patient information: Note initiated : 11/05/19 at 12:47 pm Service Date, if different from initiated Date: [] Patient: Charlotte Keller a 84 y/o F admitted on 11/05/19 for cough, weakness. Chief Complaint: [] Interval history: Ms. Keller is a 84 year old F with COPD and on 2 lpm oxygen at baseline. The pt reports a cough for about 9 weeks. For 6 weeks pt had a productive cough with green phlegm but in the last 3 weeks actually cleared up and was less. In the last 3 days starting Monday after a drive and being out in the cold wind the pt had progressive cough and worsened Mon and Monday today to severity. Was coughing so much was hard to catch her breath. Decided to come to EMD. Found to have Influenza A and B by the POC test done in the EMD. Also found to have UTI and elevated LFTs. Pt denies fevers or chills or sweats. She is requiring 3lpm oxygen currently. - Constitutional Vitals: Vital Signs Temp Pulse Resp BP Pulse Ox 97.8 F 61 20 108/78 95 11/05/19 04:00 11/05/19 11:17 11/05/19 11:17 11/05/19 04:00 11/05/19 04:00 Period Temp Pulse Resp BP Sys/Park Pulse Ox Last 24 Hr 97.4 F-98.1 F 61-92 18-24 104-143/70-93 90-96 Intake and Output 11/04/19 11/05/19 11/05/19 21:59 05:59 13:59 Intake Total 1100 1000 Output Total 600 200 Balance 500 800 Weight 59.874 kg 59.874 kg Intake & Output: Intake & Output 11/04/19 11/05/19 11/05/19 21:59 05:59 13:59 Intake Total 1100 1000 Output Total 600 200 Balance 500 800 Weight 59.874 kg 59.874 kg Intake: IV 1100 1000 Sodium Chloride 0.9% 1,000 ml @ 1000 100 mls/hr IV .Q10H LIDIA Rx#: [id number] Lactated Ringers 1,000 ml @ 1000 Wide Open IV .Q0M ONE Rx#: [id number] Output: Void Amount 600 200 Exam: General: Alert, Awake, No acute Distress Eyes/N/T: EOMI, Head/Neck: neck supple, CV: RRR, No murmurs, Pulm: Clear b/l, no wheezing, prolonged exp phase Abd: soft, nontender, +BS x4 Ext: no clubbing/cyanosis/edema Neuro: Alert, no focal deficits, moves all extremities, Skin: warm/dry Medical - PN: Obj Da - Labs CBC & Chem 7: 11/05/19 10:53 11/05/19 10:53 Labs: Abnormal Lab Results 11/05/19 11/05/19 11/04/19 10:53 10:53 22:05 MPV Gran % 80.1 H Lymph % (Auto) 11.9 L Lymph # (Auto) 0.79 L Glucose 120 H AST 128 H 226 H ALT 237 H 294 H C-Reactive Protein 2.8 H Total Protein 5.4 L 5.4 L Globulin 1.9 L 2.0 L Urine Nitrate Ur Leukocyte Esterase Urine RBC Urine WBC Urine Bacteria 11/04/19 11/04/19 20:55 19:50 MPV 10.7 H Gran % Lymph % (Auto) 12.6 L Lymph # (Auto) 0.86 L Glucose AST ALT C-Reactive Protein Total Protein Globulin Urine Nitrate Pos A Ur Leukocyte Esterase 25 A Urine RBC 2 H Urine WBC 17 H Urine Bacteria Few A Meds: Medications Acetaminophen (Tylenol) 650 mg PO Q6HP PRN; Protocol PRN Reason: Per Pain Protocol/Fever > 101 Hydrocodone Bitart/Acetaminophen ([place] 7.5/325mg) 1 tab PO BID [facility]; Protocol Last Admin: 11/05/19 08:30 Dose: 1 tab Documented by: Albuterol/Ipratropium (Duoneb) 3 ml NEB Q4HP PRN PRN Reason: Shortness Of Breath Last Admin: 11/05/19 11:05 Dose: 3 ml Documented by: Albuterol/Ipratropium (Duoneb) 3 ml NEB Q6HRT [facility] Apixaban (Eliquis) 5 mg PO BID [facility] Last Admin: 11/05/19 08:39 Dose: 5 mg Documented by: Ascorbic Acid (Vitamin C) 500 mg PO QDAY [facility] Last Admin: 11/05/19 08:39 Dose: 500 mg Documented by: Benzonatate (Tessalon) 100 mg PO TIDP PRN PRN Reason: Cough Last Admin: 11/05/19 11:12 Dose: 100 mg Documented by: Docusate Sodium (Colace) 100 mg PO BID [facility] Last Admin: 11/05/19 08:39 Dose: 100 mg Documented by: Guaifenesin/Codeine Phosphate (Robitussin Ac) 5 ml PO Q4HP PRN PRN Reason: Cough Last Admin: 11/05/19 11:17 Dose: 5 ml Documented by: Sodium Chloride (Sodium Chloride 0.9%) 1,000 mls @ 100 mls/hr IV .Q10H [facility] Last Admin: 11/05/19 11:57 Dose: 100 mls/hr Documented by: Levofloxacin (Levaquin) 500 mg in 100 mls @ 100 mls/hr IV Q24H [facility]; Protocol Last Admin: 11/05/19 08:42 Dose: 100 mls/hr Documented by: Levothyroxine Sodium (Synthroid) 112 mcg PO QAMAC [facility] Last Admin: 11/05/19 08:07 Dose: 112 mcg Documented by: Losartan Potassium (Cozaar) 100 mg PO QDAY [facility] Last Admin: 11/05/19 08:39 Dose: 100 mg Documented by: Metoprolol Tartrate (Lopressor) 50 mg PO Q12 [facility] Last Admin: 11/05/19 08:39 Dose: 50 mg Documented by: Montelukast Sodium (Singular) 10 mg PO QPM [facility] Ondansetron HCl (Zofran) 4 mg IV Q6HP PRN PRN Reason: Nausea And Vomiting Oseltamivir Phosphate (Tamiflu) 75 mg PO BID [facility] Last Admin: 11/05/19 08:39 Dose: 75 mg Documented by: Fluticasone/Vilanterol [Breo Ellipta] 100-25 Mcg Inh 1 dose INH DAILY [facility] Last Admin: 11/05/19 11:57 Dose: 1 dose Documented by: Ropinirole HCl (Requip) 1 mg PO BIDP PRN PRN Reason: Muscle Spasm Last Admin: 11/05/19 08:07 Dose: 1 mg Documented by: Senna (Senokot) 2 tab PO HS [facility] Sodium Chloride (Saline Flush) 10 ml IV Q8 [facility] Last Admin: 11/05/19 05:41 Dose: Not Given Documented by: Medical - PN: A/P - Time Spent With Patient Total time spent is greater than 50% in coordination of care (as documented) at patient's floor/unit and/or counseling patient: - Narrative A/P Narrative: Assessment: *AECOPD(2L@home): -on 3L initially, now down to 2L *Flu A&B: *UTI (e.coli): *Hepatitis: likely 2/2 influenza *AFib: *HTN: on ARB/BB *hypothyroidism: * Plan: -cont levaquin, pending SC/UC -is/acapella, nebs/RT -cont tamiflu -f/u lft's -cont ARB/BB - -ppx: apixiban
[2019-11-05] MEDS: IPRATROPIUM/ALBUTEROL 3 ML AMPUL.NEB NEB SCH ×2 (13:14→18:42)
[2019-11-05] MEDS ORDERED: SENNOSIDES 1 TABLET PO SCH (21:00)
[2019-11-05] MEDS ORDERED: IPRATROPIUM/ALBUTEROL 3 ML AMPUL.NEB NEB PRN (21:48)
[2019-11-05] MEDS ORDERED: APIXABAN 5 MG TABLET PO ONE (22:00)
[2019-11-06] MEDS: IPRATROPIUM/ALBUTEROL 3 ML AMPUL.NEB NEB SCH (01:33)
[2019-11-06] MEDS: guaiFENesin/CODEINE 10 ML UDC PO PRN ×3 (01:44→18:02)
[2019-11-06] MEDS: BENZONATATE 100 MG CAPSULE PO PRN ×3 (01:44→20:39)
[2019-11-06] MEDS: IPRATROPIUM/ALBUTEROL 3 ML AMPUL.NEB NEB ONE ×2 (01:45→01:46)
[2019-11-06] MEDS: 0.9 % SODIUM CHLORIDE 10 ML SYRINGE IV SCH ×3 (05:41→20:40)
--- NOTE | 2019-11-06 06:59 | Internal Med Progress Note ---
Medical - PN: Subj Patient information: Note initiated : 11/06/19 at 6:56 am Service Date, if different from initiated Date: [] Patient: Charlotte Keller a 84 y/o F admitted on 11/05/19 for cough, weakness. Chief Complaint: [] Interval history: Ms. Keller is a 84 year old F with COPD and on 2 lpm oxygen at baseline. The pt reports a cough for about 9 weeks. For 6 weeks pt had a productive cough with green phlegm but in the last 3 weeks actually cleared up and was less. In the last 3 days starting Monday after a drive and being out in the cold wind the pt had progressive cough and worsened Mon and Monday today to severity. Was coughing so much was hard to catch her breath. Decided to come to [facility]. Found to have Influenza A and B by the POC test done in the [facility]. Also found to have UTI and elevated LFTs. Pt denies fevers or chills or sweats. She is requiring 3lpm oxygen currently. 2/5 Has cough that feels mostly dry with occasional light yellow sputum. Shortness of breath only when she coughs. On home oxygen requirement. Coughing is significant to her and causing some of muscle pain and distress. LFTs improved. Review of Systems: denies headache/fever/chills/nausea/vomiting/chest or abdominal pain/diarrhea. Otherwise see above. - Constitutional Vitals: Vital Signs Temp Pulse Resp BP Pulse Ox 97.7 F 76 24 H 148/77 96 11/06/19 04:00 11/06/19 04:00 11/06/19 04:00 11/06/19 04:00 11/06/19 04:00 Period Temp Pulse Resp BP Sys/Park Pulse Ox Last 24 Hr 97.4 F-99.7 F 61-82 16-24 106-153/53-77 20-96 Intake and Output 11/05/19 11/06/19 11/06/19 21:59 05:59 13:59 Intake Total 955 800 Output Total 900 650 201 Balance 55 150 -201 Weight 59.693 kg Intake & Output: Intake & Output 11/05/19 11/06/19 11/06/19 21:59 05:59 13:59 Intake Total 955 800 Output Total 900 650 201 Balance 55 150 -201 Weight 59.693 kg Intake: IV 955 Sodium Chloride 0.9% 1,000 ml @ 955 100 mls/hr IV .Q10H [facility] Rx#: [id number] Oral 800 Output: Void Amount 900 650 200 # of times incontinent of urine 1 Other: Meal Dinner Percent of Meal Consumed 50% Feeding Ability Independent Exam: General: Alert, Awake, No acute Distress Eyes/N/T: EOMI, Head/Neck: neck supple, CV: RRR, No murmurs, Pulm: Clear b/l, no wheezing, prolonged exp phase Abd: soft, nontender, +BS x4 Ext: no clubbing/cyanosis/edema Neuro: Alert, no focal deficits, moves all extremities, Skin: warm/dry Medical - PN: Obj Da - Labs CBC & Chem 7: 11/05/19 10:53 11/06/19 07:33 Labs: Abnormal Lab Results 11/05/19 11/05/19 11/04/19 10:53 10:53 22:05 MPV Gran % 80.1 H Lymph % (Auto) 11.9 L Lymph # (Auto) 0.79 L Glucose 120 H AST 128 H 226 H ALT 237 H 294 H C-Reactive Protein 2.8 H Total Protein 5.4 L 5.4 L Globulin 1.9 L 2.0 L Urine Nitrate Ur Leukocyte Esterase Urine RBC Urine WBC Urine Bacteria 11/04/19 11/04/19 20:55 19:50 MPV 10.7 H Gran % Lymph % (Auto) 12.6 L Lymph # (Auto) 0.86 L Glucose AST ALT C-Reactive Protein Total Protein Globulin Urine Nitrate Pos A Ur Leukocyte Esterase 25 A Urine RBC 2 H Urine WBC 17 H Urine Bacteria Few A Meds: Medications Acetaminophen (Tylenol) 650 mg PO Q6HP PRN; Protocol PRN Reason: Per Pain Protocol/Fever > 101 Last Admin: 11/05/19 18:41 Dose: 650 mg Documented by: Hydrocodone Bitart/Acetaminophen (Taylor 7.5/325mg) 1 tab PO BID [facility]; Protocol Last Admin: 11/05/19 20:30 Dose: 1 tab Documented by: Albuterol/Ipratropium (Duoneb) 3 ml NEB Q4HP PRN PRN Reason: Shortness Of Breath Last Admin: 11/06/19 06:44 Dose: 3 ml Documented by: Apixaban (Eliquis) 5 mg PO BID [facility] Last Admin: 11/05/19 22:59 Dose: Not Given Documented by: Ascorbic Acid (Vitamin C) 500 mg PO QDAY [facility] Last Admin: 11/05/19 08:39 Dose: 500 mg Documented by: Benzonatate (Tessalon) 100 mg PO TIDP PRN PRN Reason: Cough Last Admin: 11/06/19 01:44 Dose: 100 mg Documented by: Docusate Sodium (Colace) 100 mg PO BID [facility] Last Admin: 11/05/19 22:54 Dose: 100 mg Documented by: Guaifenesin/Codeine Phosphate (Robitussin Ac) 5 ml PO Q4HP PRN PRN Reason: Cough Last Admin: 11/06/19 01:44 Dose: 5 ml Documented by: Sodium Chloride (Sodium Chloride 0.9%) 1,000 mls @ 100 mls/hr IV .Q10H [facility] Last Admin: 11/05/19 22:53 Dose: 100 mls/hr Documented by: Levofloxacin (Levaquin) 500 mg in 100 mls @ 100 mls/hr IV Q24H [facility]; Protocol Last Infusion: 11/05/19 09:42 Dose: Infused Documented by: Levothyroxine Sodium (Synthroid) 112 mcg PO QAMAC [facility] Last Admin: 11/05/19 08:07 Dose: 112 mcg Documented by: Losartan Potassium (Cozaar) 100 mg PO QDAY [facility] Last Admin: 11/05/19 08:39 Dose: 100 mg Documented by: Metoprolol Tartrate (Lopressor) 50 mg PO Q12 [facility] Last Admin: 11/05/19 22:57 Dose: 50 mg Documented by: Montelukast Sodium (Singular) 10 mg PO QPM [facility] Last Admin: 11/05/19 22:59 Dose: 10 mg Documented by: Ondansetron HCl (Zofran) 4 mg IV Q6HP PRN PRN Reason: Nausea And Vomiting Oseltamivir Phosphate (Tamiflu) 75 mg PO BID [facility] Last Admin: 11/05/19 22:00 Dose: 75 mg Documented by: Fluticasone/Vilanterol [Breo Ellipta] 100-25 Mcg Inh 1 dose INH DAILY [facility] Last Admin: 11/05/19 11:57 Dose: 1 dose Documented by: Ropinirole HCl (Requip) 1 mg PO BIDP PRN PRN Reason: Muscle Spasm Last Admin: 11/05/19 22:59 Dose: 1 mg Documented by: Senmoose (Senokot) 2 tab PO HS [facility] Last Admin: 11/05/19 22:59 Dose: 2 tab Documented by: Sodium Chloride (Saline Flush) 10 ml IV Q8 [facility] Last Admin: 11/06/19 05:41 Dose: Not Given Documented by: Medical - PN: A/P - Time Spent With Patient Total time spent is greater than 50% in coordination of care (as documented) at patient's floor/unit and/or counseling patient: - Narrative A/P Narrative: Assessment: *AECOPD(2L@home): -on 3L initially, now down to 2L *Flu A&B: *UTI (e.coli): *Hepatitis: likely 2/2 influenza *AFib: rate controlled *HTN: on ARB/BB *hypothyroidism: * Plan: -cont levaquin, pending SC/UC -is/acapella, nebs/RT -cont tamiflu -f/u lft's -cont ARB/BB - -ppx: apixiban
[2019-11-06] MEDS ORDERED: 0.9 % SODIUM CHLORIDE 1,000 ML IV SCH (07:22)
[2019-11-06] MEDS ORDERED: ONDANSETRON 4 MG/2 ML VIAL IV PRN (07:22)
[2019-11-06] MEDS: LEVOTHYROXINE SODIUM 112 MCG TABLET PO SCH (07:44)
[2019-11-06] MEDS: ASCORBIC ACID 500 MG TABLET PO SCH (08:40)
[2019-11-06] MEDS: APIXABAN 5 MG TABLET PO SCH ×2 (08:40→20:40)
[2019-11-06] MEDS: OSELTAMIVIR PHOSPHATE 75 MG CAPSULE PO SCH ×2 (08:40→20:40)
[2019-11-06] MEDS: HYDROCODONE/APAP 7.5/325MG TABLET PO SCH ×2 (08:41→20:39)
[2019-11-06] MEDS: DOCUSATE SODIUM 100 MG CAPSULE PO SCH ×2 (08:41→20:39)
[2019-11-06] MEDS: METOPROLOL TARTRATE 50 MG TABLET PO SCH ×2 (08:41→20:40)
[2019-11-06] MEDS: LOSARTAN 50 MG TABLET PO SCH (08:41)
[2019-11-06] MEDS ORDERED: APIXABAN 5 MG TABLET PO SCH (09:00)
[2019-11-06] MEDS ORDERED: DOCUSATE SODIUM 100 MG CAPSULE PO SCH (09:00)
[2019-11-06 09:03] LABS: ALT/SGPT 162 U/l (0-40); AST/SGOT 73 U/l (0-37); Albumin 3.3 gm/dL (3.2-5.2); Albumin/Globulin Ratio 1.6 (1.0-2.3); Alkaline Phosphatase 67 U/L (39-117); Bilirubin,Direct < 0.2 mg/dL (0.0-0.3); Bilirubin,Total 0.4 mg/dL (0.0-1.0); Blood Urea Nitrogen 9 mg/dl (8-23); Calcium 9.2 mg/dl (8.6-10.4); Carbon Dioxide 23 mmol/L (22-30); Chloride 104 mmol/L (96-108); Globulin 2.1 gm/dL (2.2-3.7); Glomerular Filtration Rate 84; Glucose 91 mg/dL (70-105); Lactate Dehydrogenase 277 U/L (94-250); Phosphorous 2.6 mg/dL (2.7-4.5); Triglycerides 91 mg/dl (<150); Uric Acid 2.6 mg/dL (2.5-8.0)
[2019-11-06] MEDS ORDERED: POLYETHYLENE GLYCOL 3350 17 GM PACKET PO PRN (09:12)
[2019-11-06] MEDS: 0.9 % SODIUM CHLORIDE 1,000 ML IV SCH (09:12)
[2019-11-06] MEDS ORDERED: BENZONATATE 100 MG CAPSULE PO ONE (09:24)
[2019-11-06] MEDS: LEVOFLOXACIN 500 MG/100 ML BAG IV SCH (09:41)
--- NOTE | 2019-11-06 13:48 | Discharge Summary ---
Medical - DS: Prov Patient information: Note initiated : 11/06/19 at 1:44 pm Service Date, if different from initiated Date: [] Patient: Charlotte Keller 84 y/o F admitted on 11/05/19 for cough, weakness. Chief Complaint: [] Date of admission: 11/05/19 00:36 Discharge date: 11/07/19 Primary care physician: Cristobal Shay M.D., F.A.A.F.P. Consults: 11/04/19 Consult to Physician [CONS] Stat Comment: Consulting Provider: Hiro Madison Reason For Exam: Physician to Consult Medical - DS: Meds - Discharge Medications Prescriptions: Oseltamivir Phosphate [Tamiflu] 75 mg PO BID #5 cap Benzonatate [Tessalon] 100 mg PO TIDP PRN #20 cap PRN Reason: Cough Active and Home Medications: Home Medications ascorbic acid (vitamin C) 500 mg tablet 500 mg PO QDAY 06/27/17 [History Confirmed 11/04/19 Last Taken 10/03/18] cyanocobalamin (vitamin B-12) 1,000 mcg sublingual tablet 1,000 mcg SUBLINGUAL QDAY 02/12/18 [History Confirmed 11/04/19 Last Taken 10/03/18] cholecalciferol (vitamin D3) 25 mcg (1,000 unit) capsule 2,000 unit PO QDAY cap 07/25/18 [History Confirmed 11/04/19 Last Taken 10/03/18] Nebulizer [Vixone Nebulizer] 1 each INH CONT 10/04/18 [History Confirmed 11/04/19 Last Taken Unknown] ropinirole 1 mg tablet 1 mg PO BIDP PRN #90 tab 02/22/19 [Rx Confirmed 11/04/19 Last Taken Unknown] metoprolol tartrate 50 mg tablet 50 mg PO Q12H #180 tab 05/01/19 [Rx Confirmed 11/04/19 Last Taken Unknown] losartan 50 mg tablet 100 mg PO QDAY #180 tab 05/24/19 [Rx Confirmed 11/04/19 Last Taken Unknown] levothyroxine 112 mcg tablet 112 mcg PO QDAY #90 tab 07/22/19 [Rx Confirmed 11/04/19 Last Taken Unknown] montelukast 10 mg tablet See Rx Instructions .ROUTE .COMPLEX #90 tablet 09/18/19 [Rx Confirmed 11/04/19 Last Taken Unknown] Fluticasone/Vilanterol [Breo Ellipta 100-25 Mcg INH] 1 inh IH DAILY 11/04/19 [History Confirmed 11/04/19 Last Taken Unknown] Medical - DS: Hosp Hospital Course: Ms. Keller is a 84 year old F with COPD and on 2 lpm oxygen at baseline. The pt reports a cough for about 9 weeks. For 6 weeks pt had a productive cough with green phlegm but in the last 3 weeks actually cleared up and was less. In the last 3 days starting Monday after a drive and being out in the cold wind the pt had progressive cough and worsened Mon and Monday today to severity. Was coughing so much was hard to catch her breath. Decided to come to [facility]. Found to have Influenza A and B by the POC test done in the EMD. Also found to have UTI and elevated LFTs. Pt denies fevers or chills or sweats. She is requiring 3lpm oxygen currently. 2/5 Has cough that feels mostly dry with occasional light yellow sputum. Shortness of breath only when she coughs. On home oxygen requirement. Coughing is significant to her and causing some of muscle pain and distress. LFTs improved. 2/6 No overnight events. Coughing improving some. Shortness of breath improved, good oxygenation on her baseline regimen. Able for discharge. Assessment: *AECOPD(2L@home): -on 3L initially, now down to 2L *Flu A&B: *UTI (e.coli): *Hepatitis: likely 2/2 influenza. IMproved *AFib: rate controlled *HTN: on ARB/BB *hypothyroidism: * Discharge diagnosis: Influenza COPD UTI hepatitis atrial fibrillation hypertension hypothyroidis - Time Spent with Patient Total time spent providing and/or coordinating discharge services: Greater than 30 minutes Medical - DS: Exam - Constitutional Vitals: Vital Signs Temp Pulse Pulse Resp BP BP Pulse Ox 11/06/19 12:00 99 F 64 22 123/59 96 11/06/19 07:30 95 11/06/19 07:29 99.1 F H 22 158/81 95 11/06/19 07:02 94 11/06/19 06:58 93 H 18 11/06/19 04:00 97.7 F 76 24 H 148/77 96 11/06/19 00:00 97.6 F 65 22 140/65 94 11/05/19 20:00 99.7 F H 11/05/19 19:49 18 144/71 94 11/05/19 18:45 79 20 11/05/19 16:00 98.0 F 73 16 106/69 96 11/05/19 14:40 82 20 Intake and Output 11/05/19 11/06/19 11/06/19 21:59 05:59 13:59 Intake Total 096 024 6131 Output Total 900 650 726 Balance 55 150 1132 Intake: IV 955 1378 Sodium Chloride 0.9% 1,000 ml @ 955 1278 100 mls/hr IV .Q10H [facility] Rx#: [id number] Oral 800 480 Output: Void Amount 900 650 725 # of times incontinent of urine 1 Other: Meal Dinner Lunch Percent of Meal Consumed 50% 100% Feeding Ability Independent Urine Appearance Clear Urine Color Bright Yellow Weight 59.693 kg Medical - DS: Data Labs on day of discharge: Labs from last 24 hours 11/06/19 07:33 Sodium 139 Potassium 3.7 Chloride 104 Carbon Dioxide 23 Anion Gap 12.0 BUN 9 Creatinine 0.6 GFR Calculation 84 Glucose 91 Uric Acid 2.6 Calcium 9.2 Phosphorus 2.6 L Magnesium 1.7 Total Bilirubin 0.4 Direct Bilirubin < 0.2 GGT 141 H AST 73 H ALT 162 H Alkaline Phosphatase 67 Lactate Dehydrogenase 277 H Total Protein 5.4 L Albumin 3.3 Globulin 2.1 L Albumin/Globulin Ratio 1.6 Triglycerides 91 Preliminary micro results at discharge 11/04/19 20:58 Blood Culture - Preliminary Blood 11/04/19 19:50 Blood Culture - Preliminary Blood 11/04/19 20:55 Urine Culture - Preliminary Urine - Clean Void Mid-Stream Escherichia coli Medical - DS: A/P - Patient/Caregiver Discharge Instructions Activity: increase activity as tolerated Diet: Regular Diet Prescriptions: Oseltamivir Phosphate [Tamiflu] 75 mg PO BID #5 cap Benzonatate [Tessalon] 100 mg PO TIDP PRN #20 cap PRN Reason: Cough - Follow up Plan Follow up with: Cristobal Shay MD, FAAFP [Primary Care Provider] - 11/13/19 3:30 pm (Please continue with your current appointment, check in at 3:15 pm) Disposition: Home, Self-Care Care Plan Goals: This discharge packet is provided to you to help keep you informed about your care. We want to ensure you get everything you need when you go home. You will also be receiving a call from us in a few days to follow up with you and see how you are doing since your discharge. This gives us a chance to listen to any concerns you maybe experiencing since you were discharged or any additional needs you may have, as well as providing us feedback on your care experience. We strive to always provide excellent care and thank you for your feedback and for choosing [facility]. Prognosis: Fair Rehab Potential: Fair Overall status at discharge: patient is progressing back to baseline
[2019-11-06] MEDS ORDERED: predniSONE 20 MG TABLET PO ONE (13:49)
[2019-11-06] MEDS: IPRATROPIUM/ALBUTEROL 3 ML AMPUL.NEB NEB PRN (16:04)
[2019-11-06] MEDS: ACETAMINOPHEN 325 MG TABLET PO PRN (18:03)
[2019-11-06] MEDS: rOPINIRole 1 MG TABLET PO PRN (19:26)
[2019-11-06] MEDS ORDERED: MONTELUKAST 10 MG TABLET PO SCH (21:00)
[2019-11-06] MEDS ORDERED: SENNOSIDES 1 TABLET PO SCH (21:00)
[2019-11-07] MEDS: IPRATROPIUM/ALBUTEROL 3 ML AMPUL.NEB NEB PRN ×2 (01:02→06:05)
[2019-11-07] MEDS: guaiFENesin/CODEINE 10 ML UDC PO PRN (02:21)
[2019-11-07] MEDS: 0.9 % SODIUM CHLORIDE 10 ML SYRINGE IV SCH (05:10)
[2019-11-07] MEDS: LEVOTHYROXINE SODIUM 112 MCG TABLET PO SCH (06:41)
[2019-11-07] MEDS: BENZONATATE 100 MG CAPSULE PO PRN ×2 (06:41→12:02)
[2019-11-07] MEDS: ACETAMINOPHEN 325 MG TABLET PO PRN (06:42)
[2019-11-07] MEDS: rOPINIRole 1 MG TABLET PO PRN (07:19)
[2019-11-07] MEDS ORDERED: predniSONE 20 MG TABLET PO ONE (09:51)
[2019-11-07] MEDS: OSELTAMIVIR PHOSPHATE 75 MG CAPSULE PO SCH (09:57)
[2019-11-07] MEDS: APIXABAN 5 MG TABLET PO SCH (09:57)
[2019-11-07] MEDS: LOSARTAN 50 MG TABLET PO SCH (09:57)
[2019-11-07] MEDS: METOPROLOL TARTRATE 50 MG TABLET PO SCH (09:58)
[2019-11-07] MEDS: HYDROCODONE/APAP 7.5/325MG TABLET PO SCH (09:58)
[2019-11-07] MEDS: DOCUSATE SODIUM 100 MG CAPSULE PO SCH (09:58)
[2019-11-07] MEDS: ASCORBIC ACID 500 MG TABLET PO SCH (09:58)
[2019-11-07] MEDS: LEVOFLOXACIN 500 MG/100 ML BAG IV SCH (09:59)
== END 2019-11-07 13:25 | disposition home or self-care (01) ==
LOC: ED 19:19 → ICU 19:19 → UNDODISOB 11-05 16:52
PROVIDERS: ADMIT Internal Medicine; ATTEND Internal Medicine

== ENCOUNTER 2020-10-18 08:58 | Inpatient (IN) ==
[2020-10-18] MEDS ORDERED: 0.9 % SODIUM CHLORIDE 1,000 ML IV ONE (09:16)
[2020-10-18] MEDS ORDERED: methylPREDNISolone SOD SUCC 125 MG/2 ML VIAL IV ONE (09:16)
[2020-10-18] MEDS ORDERED: IPRATROPIUM/ALBUTEROL 3 ML AMPUL.NEB NEB ONE (09:16)
[2020-10-18 10:21] LABS: Basophils # (Auto) 0.06 K/mcL (0.00-0.20); Basophils % (Auto) 0.2 % (0.0-2.0); Eosinophils # (Auto) 0.01 K/mcL (0.00-0.70); Eosinophils % (Auto) 0 % (0.0-7.0); Hematocrit 44.7 % (36.0-48.0); Hemoglobin 14.3 g/dL (12.0-15.0); Lymphocytes # (Auto) 1.52 K/mcL (1.50-4.80); Lymphocytes % (Auto) 6.1 % (15.0-49.0); Mean Cell Volume 92.9 fL (80.0-100.0); Mean Platelet Volume 10.5 fL (7.4-10.4); Monocytes # (Auto) 1.45 K/mcL (0.10-0.90); Monocytes % (Auto) 5.8 % (1.0-12.0); Neutrophils % (Auto) 87.9 % (38.0-78.0); Platelet Count 187 K/mcL (140-440); RBC 4.81 M/mcL (4.00-5.20); Red Cell Distribution Width 12.3 % (11.5-14.5); WBC 25.1 K/mcL (4.5-11.0)
[2020-10-18 10:48] LABS: ALT/SGPT 22 U/L (<40); AST/SGOT 23 U/L (<32); Albumin 3.7 gm/dL (3.2-5.2); Albumin/Globulin Ratio 1.8 (1.0-2.3); Alkaline Phosphatase 54 U/L (39-117); Bilirubin,Total 1.1 mg/dL (0.1-1.0); Blood Urea Nitrogen 16 mg/dL (8-23); Calcium 9.4 mg/dL (8.6-10.4); Carbon Dioxide 26 mmol/L (22-30); Chloride 99 mmol/L (96-108); Globulin 2.1 gm/dL (2.2-3.7); Glomerular Filtration Rate 79; Glucose 138 mg/dL (70-105)
[2020-10-18 10:50] LABS: INR 1.1 (0.9-1.1); Prothrombin Time 14.7 sec (11.9-14.5)
[2020-10-18] MEDS ORDERED: cefTRIAXone 1 GM VIAL IV ONE ×2 (10:51→13:30)
--- NOTE | 2020-10-18 10:51 | Emergency Department Note ---
SOB HPI General Chief Complaint: Shortness of Breath/Dyspnea Stated Complaint: shortness of breath Time Seen by Provider: 10/18/20 09:15 Source: patient Mode of arrival: ambulatory Limitations: no limitations History of Present Illness HPI Narrative: Narrative: 85-year-old female comes in complaining of trouble breathing since last night. She is coughing up quite a bit of mucus. She is afebrile but is now requiring oxygen. She normally only uses 2 L at night. She has known COPD. Denies fever or other recent illness. She is anticoagulated due to paroxysmal A. fib Related Data Home Medications Medication Instructions Recorded Confirmed ascorbic acid (vitamin C) 500 mg 500 mg PO QDAY 06/27/17 10/13/20 tablet cyanocobalamin (vitamin B-12) 1,000 mcg SUBLINGUAL QDAY 02/12/18 10/13/20 1,000 mcg sublingual tablet cholecalciferol (vitamin D3) 25 2,000 unit PO QDAY cap 07/25/18 10/13/20 mcg (1,000 unit) capsule nebulizers 10/04/18 10/13/20 albuterol sulfate 0.63 mg/3 mL See Rx Instructions .ROUTE 05/11/20 10/13/20 solution for nebulization .COMPLEX unknown measurement unit code: ml clotrimazole 10 mg silvestre 10 mg PO tab 06/09/20 10/13/20 apixaban 2.5 mg tablet 2.5 mg PO .QD tab 08/11/20 10/13/20 montelukast 10 mg tablet 10 mg PO QHS tab 08/11/20 10/13/20 omega-3 fatty acids PO 08/11/20 10/13/20 vitamin E (dl, acetate) PO 08/11/20 10/13/20 Previous Rx's Medication Instructions Recorded metoprolol tartrate 50 mg tablet 50 mg PO Q12H #180 tab 12/02/19 ropinirole 1 mg tablet 1 mg PO BIDP PRN #90 tab 12/02/19 albuterol sulfate 90 mcg/actuation 2 puff INHALATION QID #18 g 03/23/20 aerosol inhaler fluticasone furoate 200 1 inh INHALATION Q24H #60 each 04/20/20 mcg-vilanterol 25 mcg/dose inhalation powder losartan 50 mg tablet See Rx Instructions .ROUTE 06/09/20 .COMPLEX #180 tab levothyroxine 100 mcg tablet 100 mcg PO QDAY #30 tab 08/25/20 hydrocodone 7.5 mg-acetaminophen 1 tab PO BID PRN 30 Days #60 tab 09/23/20 325 mg tablet Allergies Allergy/AdvReac Type Severity Reaction Status Date / Time celecoxib [From CELEBREX] AdvReac Mild Unknown Verified 10/18/20 09:07 clindamycin [From CLEOCIN] AdvReac Mild Unknown Verified 10/18/20 09:07 Diclofenac AdvReac Mild Unknown Verified 10/18/20 09:07 [From ARTHROTEC 50] lisinopril [LISINOPRIL] AdvReac Mild COUGH Verified 10/18/20 09:07 misoprostol AdvReac Mild Unknown Verified 10/18/20 09:07 [From ARTHROTEC 50] morphine [MORPHINE] AdvReac Mild Hallucinati Verified 10/18/20 09:07 ons triamcinolone [From KENALOG] AdvReac Mild Unknown Verified 10/18/20 09:07 Review of Systems ROS ROS Narrative: Narrative: All systems ED: reviewed and negative except as stated. [facility] Narrative Patient History Narrative: Narrative: Medical/Surgical/Family History All Active Problems (Updated 10/18/20 @ 11:54 by Cuong Stevens MD) Sepsis (Acute) Paroxysmal atrial fibrillation (Chronic) Diastolic dysfunction, left ventricle (Acute) Medicare annual wellness visit, initial (Acute) Left knee pain (Chronic) Opioid dependence (Chronic) Lumbar radiculopathy (Chronic) Sacroiliitis (Chronic) Chronic SI joint pain (Chronic) Nocturnal hypoxia (Acute) Thrush, oral (Acute) Malaise (Acute) Vaginal pain (Acute) Oral candidiasis (Acute) Acute exacerbation of chronic obstructive airways disease (Acute) COPD exacerbation (Acute) Shortness of breath (Acute) Influenza A (Acute) Influenza B (Acute) Viral hepatitis (Acute) UTI (urinary tract infection) (Acute) Hepatitis (Acute) Memory problem (Chronic) Loss of height (Acute) Breast lump (Acute) COPD (chronic obstructive pulmonary disease) with chronic bronchitis (Acute) 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) Pneumonia (Acute) Upper respiratory infection (Acute) Breast cancer (Acute) Chronic obstructive pulmonary disease (Chronic) Numbness of foot (Acute) Asthma (Chronic) Chest discomfort (Acute) Encounter for Health Maintenance Examination in Adult (Chronic) History of hysterectomy (Chronic) Cystocele (Chronic) H/O colonoscopy (Chronic) Hx of cholecystectomy (Chronic) History of arthroplasty (Chronic) History of tobacco use (Chronic) Restless legs (Chronic) Pelvic fracture (Chronic) Osteoporosis screening (Chronic) Lung nodule (Chronic) Low back pain (Chronic) Knee pain (Acute) Hypoxia (Chronic) Hypothyroidism (Chronic) Hypertension (Chronic) Hydronephrosis (Chronic) Fracture, humerus closed (Chronic) Hiatal hernia (Chronic) Fibrocystic breast disease (Chronic) Fall (Chronic) Esophageal reflux (Chronic) Dyspepsia (Chronic) Situational depression (Chronic) Degenerative joint disease (Chronic) Colon polyps (Chronic) Medical History Asthma (Chronic) Chest discomfort (Acute) chest ,arm,toe contussion post nonsyncopal fall Chest wall pain (Resolved) Chronic SI joint pain (Chronic) Colon polyps (Chronic) 02/11/13 COPD (chronic obstructive pulmonary disease) with chronic bronchitis (Acute) Pneumonia 11/2017 s/p Nigel Jones Degenerative joint disease (Chronic) Left knee with op 1988; re-op 08/2009 Diastolic dysfunction, left ventricle (Acute) Dyspepsia (Chronic) History of, stable; lap wanda in 2000 Dyspnea (Resolved) Encounter for Health Maintenance Examination in Adult (Chronic) Esophageal reflux (Chronic) History of, stable; lap wanda in 2000 Fall (Chronic) Status post non syncopal fall with pelvic fracture on the left in October of 2012; current right perilumbar/sacroiliac discomfort Fibrocystic breast disease (Chronic) Cystic breast disease. 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 No chemoTx. History of tobacco use (Chronic) Distant ex smoker with last chest xray in November of 2010; Pneumovax up to date, does not require routine screening Hydronephrosis (Chronic) Past history of the kidney; negative workup in 2002 Hypertension (Chronic) Hypothyroidism (Chronic) on replacement Hypoxia (Chronic) (12/18/14-[place]) Knee pain (Acute) Status postop left knee; reop in Aug with persisting discomfort Left knee pain (Chronic) 4 months S/P total knee revision Low back pain (Chronic) current right perilumbar/sacroiliac discomfort Lumbar radiculopathy (Chronic) Lung nodule (Chronic) (12/18/14-[place])01/19/2015 - CT Scan done at [facility]: 13 x 9mm pleural based pulmonary nodule in the posterior basilar segment of the left lower lobe. 06/2017: nodule Unchanged; likely scar tissue Malaise (Acute) Medicare annual wellness visit, initial (Acute) Nocturnal hypoxia (Acute) Numbness of foot (Acute) Opioid dependence (Chronic) Osteoporosis screening (Chronic) Bone density update in 01/2012 showing essentially normal bone density; five year sequencing; stable vitamin D level three years ago Paroxysmal atrial fibrillation (Chronic) Pelvic fracture (Chronic) on the left in October of 2012 Respiratory symptoms (Resolved) Restless legs (Chronic) Stable on Requip Sacroiliitis (Chronic) Situational depression (Chronic) 's in Sep, improved with her new partner Thrush, oral (Acute) Vaginal pain (Acute) Wheezing (Resolved) Surgical History Cystocele (Chronic) cystocele repair H/O colonoscopy (Chronic) 02/11/2013-, on five year sequencing through Dr Solitario History of arthroplasty (Chronic) 12/16/2014-Right total shoulder Status post op left knee; reop in August of 2009 with persisting discomfort, extensive reevaluation including bone scan; xrays; and orthopaedic review History of hysterectomy (Chronic) Status post complete hysterectomy; cystic breast change, mammogram 03/22/13 History of surgery (Acute) SI Joint Inj. Rt. w/sed 05/13/202007/20 SI Joint Injection, Rt w/sed 07/29/1905/14 SI Joint Injection right w/o sed 05/07/201301/12 LESI #1 L4-5 w/o sed 01/02/13 Hx of cholecystectomy (Chronic) 2000- Laparoscopic Family History Mother Malignant neoplasm of breast Social History Smoking Status: Former smoker Alcohol Intake Frequency: 0-2 drinks per day Substance Use: does not use Exam Narrative Narrative: Narrative: No acute distress wearing nasal cannula oxygen. Normocephalic atraumatic. Conjunctive are clear sclerae white nonicteric. No nasal discharge or congestion. Oropharynx pink moist. Occasional productive cough. Neck is supple without lymphadenopathy thyromegaly or carotid bruit. Heart is regular rate and rhythm no murmur appreciated. Lungs with coarse wheezing and rhonchi throughout all keith I do not hear any rales but it is actually difficult to hear with all the wheezing. Abdomen soft nontender nondistended. No peritoneal signs or guarding. No pedal edema. Alert oriented able to answer questions appropriately but does have to stop occasionally to catch her breath General Limitations: no limitations Course Vital Signs Vital signs: Vital Signs Temperature 98.8 F 10/18/20 09:02 Pulse Rate 59 L 10/18/20 09:02 Respiratory Rate 16 10/18/20 09:02 Blood Pressure 106/63 10/18/20 09:02 Pulse Oximetry (%) 97 10/18/20 09:02 Temperature 98.8 F 10/18/20 09:02 Pulse Rate 66 10/18/20 11:01 Respiratory Rate 22 10/18/20 11:01 Blood Pressure 104/54 10/18/20 11:01 Pulse Oximetry (%) 97 10/18/20 11:01 [facility] MDM Narrative Medical decision making narrative: Narrative: Likely COPD exacerbation but other etiologies possible including Covid, pneumonia, cardiac disease. Pulmonary embolism unlikely given that she is on apixaban so D-dimer is not ordered Significant leukocytosis noted. Chest x-ray shows possible left lower lung pneumonia. We will start her on some rocephin after getting blood cultures. Blood gas shows ABG 7.40 PCO2 43 PO2 of 80 on 2 L Prolactin suggest bacterial infection with sepsis-we will add azithromycin. Discussed case with Dr. Zapata, our hospitalist. He agreed to accept the patient for further care and evaluation. I wrote holding orders. Updated the patient and discussed with her the situation-she is agreeable with coming in the hospital Lab Data Lab results reviewed: Yes I reviewed the patient's lab results. Result diagrams: 10/18/20 09:35 10/18/20 09:35 Labs: Lab Results 10/18/20 10/18/20 10/18/20 Range/Units 09:35 09:35 09:35 WBC 25.1 H (4.5-11.0) K/mcL RBC 4.81 (4.00-5.20) M/mcL Hgb 14.3 (12.0-15.0) g/dL Hct 44.7 (36.0-48.0) % MCV 92.9 (80.0-100.0) fL MCH 29.7 (26.0-34.0) pg MCHC 32.0 (31.0-36.0) g/dL RDW 12.3 (11.5-14.5) % Plt Count 187 (140-440) K/mcL MPV 10.5 H (7.4-10.4) fL Neut % (Auto) 87.9 H (38.0-78.0) % Lymph % (Auto) 6.1 L (15.0-49.0) % [place] % (Auto) 5.8 (1.0-12.0) % Eos % (Auto) 0 (0.0-7.0) % Baso % (Auto) 0.2 (0.0-2.0) % Lymph # (Auto) 1.52 (1.50-4.80) K/mcL [place] # (Auto) 1.45 H (0.10-0.90) K/mcL Eos # (Auto) 0.01 (0.00-0.70) K/mcL Baso # (Auto) 0.06 (0.00-0.20) K/mcL Absolute Neutrophils 22.04 H (1.80-8.00) K/mcL PT 14.7 H (11.9-14.5) sec INR 1.1 (0.9-1.1) Sodium 138 (133-145) mmol/L Potassium 3.9 (3.3-5.1) mmol/L Chloride 99 (96-108) mmol/L Carbon Dioxide 26 (22-30) mmol/L Anion Gap 13.0 (8.0-16.0) BUN 16 (8-23) mg/dL Creatinine 0.7 (0.6-1.1) mg/dL GFR Calculation 79 Glucose 138 H (70-105) mg/dL Calcium 9.4 (8.6-10.4) mg/dL Magnesium 1.7 (1.6-2.5) mg/dL Total Bilirubin 1.1 H (0.1-1.0) mg/dL AST 23 (<32) U/L ALT 22 (<40) U/L Alkaline Phosphatase 54 (39-117) U/L Troponin T (<0.03) ng/mL NT-Pro-B Natriuret Pep 1606.0 H (<450.0) pg/mL Total Protein 5.8 L (5.9-8.4) gm/dL Albumin 3.7 (3.2-5.2) gm/dL Globulin 2.1 L (2.2-3.7) gm/dL Albumin/Globulin Ratio 1.8 (1.0-2.3) Lipase 13 (7-60) U/L Procalcitonin (<0.10) ng/mL 10/18/20 10/18/20 Range/Units 09:35 09:35 WBC (4.5-11.0) K/mcL RBC (4.00-5.20) M/mcL Hgb (12.0-15.0) g/dL Hct (36.0-48.0) % MCV (80.0-100.0) fL MCH (26.0-34.0) pg MCHC (31.0-36.0) g/dL RDW (11.5-14.5) % Plt Count (140-440) K/mcL MPV (7.4-10.4) fL Neut % (Auto) (38.0-78.0) % Lymph % (Auto) (15.0-49.0) % [place] % (Auto) (1.0-12.0) % Eos % (Auto) (0.0-7.0) % Baso % (Auto) (0.0-2.0) % Lymph # (Auto) (1.50-4.80) K/mcL [place] # (Auto) (0.10-0.90) K/mcL Eos # (Auto) (0.00-0.70) K/mcL Baso # (Auto) (0.00-0.20) K/mcL Absolute Neutrophils (1.80-8.00) K/mcL PT (11.9-14.5) sec INR (0.9-1.1) Sodium (133-145) mmol/L Potassium (3.3-5.1) mmol/L Chloride (96-108) mmol/L Carbon Dioxide (22-30) mmol/L Anion Gap (8.0-16.0) BUN (8-23) mg/dL Creatinine (0.6-1.1) mg/dL GFR Calculation Glucose (70-105) mg/dL Calcium (8.6-10.4) mg/dL Magnesium (1.6-2.5) mg/dL Total Bilirubin (0.1-1.0) mg/dL AST (<32) U/L ALT (<40) U/L Alkaline Phosphatase (39-117) U/L Troponin T < 0.01 (<0.03) ng/mL NT-Pro-B Natriuret Pep (<450.0) pg/mL Total Protein (5.9-8.4) gm/dL Albumin (3.2-5.2) gm/dL Globulin (2.2-3.7) gm/dL Albumin/Globulin Ratio (1.0-2.3) Lipase (7-60) U/L Procalcitonin 1.48 H (<0.10) ng/mL Radiology Data Radiology results reviewed: Yes I reviewed the patient's radiology results. Discharge Plan Patient/Caregiver Discharge Instructions Pt seen by [employer]/PA only: No Clinical Impression: Acute exacerbation of chronic obstructive airways disease Sepsis Qualifiers: Sepsis type: sepsis due to unspecified organism Sepsis acute organ dysfunction status: with acute organ dysfunction Severe sepsis acute organ dysfunction type: acute respiratory failure Acute respiratory failure type: with hypoxia Severe sepsis shock status: without septic shock Qualified Code(s): A41.9 - Sepsis, unspecified organism Pneumonia Qualifiers: Pneumonia type: due to unspecified organism Laterality: left Lung location: lower lobe of lung Qualified Code(s): J18.9 - Pneumonia, unspecified organism Patient Disposition: Xfer As Inpt ([facility]) Condition: Fair Follow up with: Iván Case MD [Primary Care Provider] - Prescriptions: No Action ropinirole 1 mg tablet 1 mg PO BIDP PRN (Reason: Muscle Spasm) Qty: 90 RF: 3 metoprolol tartrate 50 mg tablet 50 mg PO Q12H Qty: 180 RF: 6 albuterol sulfate 90 mcg/actuation HFA aerosol inhaler 2 puff INHALATION QID Qty: 18 RF: 4 losartan 50 mg tablet See Rx Instructions .ROUTE .COMPLEX Qty: 180 RF: 4 levothyroxine [Synthroid] 100 mcg tablet 100 mcg PO QDAY Qty: 30 RF: 1 hydrocodone-acetaminophen 7.5-325 mg tablet 1 tab PO BID PRN (Reason: pain, moderate) 30 Days Qty: 60 RF: 0 albuterol sulfate 0.63 mg/3 mL solution for nebulization See Rx Instructions .ROUTE .COMPLEX RF: 0 clotrimazole 10 mg silvestre 10 mg PO RF: 0 montelukast 10 mg tablet 10 mg PO QHS RF: 0 vitamin E (dl, acetate) PO RF: 0 omega-3 fatty acids PO RF: 0 apixaban [Eliquis] 2.5 mg tablet RF: 0 apixaban 2.5 mg tablet 2.5 mg PO .QD RF: 0 cholecalciferol (vitamin D3) 1,000 unit capsule 2,000 unit PO QDAY RF: 0 ascorbic acid (vitamin C) 500 mg tablet 500 mg PO QDAY RF: 0 cyanocobalamin (vitamin B-12) 1,000 mcg tablet, sublingual 1,000 mcg SUBLINGUAL QDAY RF: 0 fluticasone furoate-vilanterol [Breo Ellipta] 100-25 mcg/dose blister with dev ice RF: 0 Breo Ellipta 200-25 mcg/dose blister with device 1 inh INHALATION Q24H Qty: 60 RF: 5 (DME) nebulizers 1 EACH misc 1 each INH CONT RF: 0
[2020-10-18] MEDS ORDERED: rOPINIRole 1 MG TABLET PO ONE (11:29)
[2020-10-18] MEDS ORDERED: AZITHROMYCIN 500 MG in DEXTROSE 5% IN WATER 250 ML IV ONE (11:43)
[2020-10-18] MEDS ORDERED: ONDANSETRON 4 MG/2 ML VIAL IV PRN ×2 (11:50→12:20)
[2020-10-18] MEDS ORDERED: ACETAMINOPHEN 325 MG TABLET PO PRN (12:20)
[2020-10-18] MEDS ORDERED: POTASSIUM CHLORIDE 40 MEQ in DEXTROSE 5% IN WATER 500 ML IV PRN (12:20)
[2020-10-18] MEDS ORDERED: IPRATROPIUM/ALBUTEROL 3 ML AMPUL.NEB NEB PRN (12:20)
[2020-10-18] MEDS ORDERED: POLYETHYLENE GLYCOL 3350 17 GM PACKET PO PRN (12:20)
[2020-10-18] MEDS ORDERED: ONDANSETRON 4 MG ODT TABLET SL PRN (12:20)
[2020-10-18] MEDS ORDERED: ACETAMINOPHEN 650 MG/65 ML BAG IV PRN ×2 (12:20)
[2020-10-18] MEDS ORDERED: POTASSIUM CHLORIDE 20 MEQ PACKET PO PRN (12:20)
[2020-10-18] MEDS ORDERED: BISACODYL 10 MG SUPP.RECT PR PRN (12:20)
[2020-10-18] MEDS ORDERED: MAGNESIUM SULFATE 2 GM/50 ML BAG IV PRN (12:20)
[2020-10-18] MEDS ORDERED: MELATONIN 3 MG TABLET PO PRN (12:20)
--- NOTE | 2020-10-18 12:24 | Internal Med History&Physical ---
HPI History of Present Illness Patient information: Note initiated : 10/18/20 at 12:24 pm Service Date, if different from initiated Date: [] Patient: Charlotte Keller a 85 y/o F admitted on for shortness of breath. Chief Complaint: Cough/shortness of breath History of present illness: Ms. Keller is a 85 year old F with history of COPD/nocturnal hypoxemia on oxygen/PAF/HTN/RLS and intermittent dysphagia who presents to the ER with 3-day onset of worsening shortness of breath/cough/weakness and generalized malaise. Patient lives with her Remi in [place] and was in her baseline state of health until few days prior presentation. Initial work-up in the ER was consistent with severe sepsis/WBC 25/pyuria/multifocal chest infiltrates consistent with pneumonia. COVID-19 test negative. Patient was started antibiotic coverage after cultures were drawn. Hospitalist service consulted. At the time of evaluation patient is accompanied with her Remi. She was able to answer most the question. She does not seem to apparent distress and feels better. She endorses history as above. She endorsed to choking episode 3 days ago and has noted frequent swallowing difficulty since last 1 year but has been very careful about it. She endorses to degenerative joint disease but no recent change in symptom including dysuria, diarrhea, bloody stool, headache, photophobia, myalgia or neck stiffness. She denies sick contacts or change in medications. Review of systems 10 point review system was performed and is negative except above discussed above PFSH PFSH All Active Problems (Updated 10/18/20 @ 11:54 by Cuong Stevens MD) Sepsis (Acute) Paroxysmal atrial fibrillation (Chronic) Diastolic dysfunction, left ventricle (Acute) Medicare annual wellness visit, initial (Acute) Left knee pain (Chronic) Opioid dependence (Chronic) Lumbar radiculopathy (Chronic) Sacroiliitis (Chronic) Chronic SI joint pain (Chronic) Nocturnal hypoxia (Acute) Thrush, oral (Acute) Malaise (Acute) Vaginal pain (Acute) Oral candidiasis (Acute) Acute exacerbation of chronic obstructive airways disease (Acute) COPD exacerbation (Acute) Shortness of breath (Acute) Influenza A (Acute) Influenza B (Acute) Viral hepatitis (Acute) UTI (urinary tract infection) (Acute) Hepatitis (Acute) Memory problem (Chronic) Loss of height (Acute) Breast lump (Acute) COPD (chronic obstructive pulmonary disease) with chronic bronchitis (Acute) 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) Pneumonia (Acute) Upper respiratory infection (Acute) Breast cancer (Acute) Chronic obstructive pulmonary disease (Chronic) Numbness of foot (Acute) Asthma (Chronic) Chest discomfort (Acute) Encounter for Health Maintenance Examination in Adult (Chronic) History of hysterectomy (Chronic) Cystocele (Chronic) H/O colonoscopy (Chronic) Hx of cholecystectomy (Chronic) History of arthroplasty (Chronic) History of tobacco use (Chronic) Restless legs (Chronic) Pelvic fracture (Chronic) Osteoporosis screening (Chronic) Lung nodule (Chronic) Low back pain (Chronic) Knee pain (Acute) Hypoxia (Chronic) Hypothyroidism (Chronic) Hypertension (Chronic) Hydronephrosis (Chronic) Fracture, humerus closed (Chronic) Hiatal hernia (Chronic) Fibrocystic breast disease (Chronic) Fall (Chronic) Esophageal reflux (Chronic) Dyspepsia (Chronic) Situational depression (Chronic) Degenerative joint disease (Chronic) Colon polyps (Chronic) Medical History Asthma (Chronic) Chest discomfort (Acute) chest ,arm,toe contussion post nonsyncopal fall Chest wall pain (Resolved) Chronic SI joint pain (Chronic) Colon polyps (Chronic) 02/11/13 COPD (chronic obstructive pulmonary disease) with chronic bronchitis (Acute) Pneumonia 11/2017 s/p Nigel Jones Degenerative joint disease (Chronic) Left knee with op 1988; re-op 08/2009 Diastolic dysfunction, left ventricle (Acute) Dyspepsia (Chronic) History of, stable; lap wanda in 2000 Dyspnea (Resolved) Encounter for Health Maintenance Examination in Adult (Chronic) Esophageal reflux (Chronic) History of, stable; lap wanda in 2000 Fall (Chronic) Status post non syncopal fall with pelvic fracture on the left in October of 2012; current right perilumbar/sacroiliac discomfort Fibrocystic breast disease (Chronic) Cystic breast disease. 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 No chemoTx. History of tobacco use (Chronic) Distant ex smoker with last chest xray in November of 2010; Pneumovax up to date, does not require routine screening Hydronephrosis (Chronic) Past history of the kidney; negative workup in 2002 Hypertension (Chronic) Hypothyroidism (Chronic) on replacement Hypoxia (Chronic) (12/18/14-[place]) Knee pain (Acute) Status postop left knee; reop in Aug with persisting discomfort Left knee pain (Chronic) 4 months S/P total knee revision Low back pain (Chronic) current right perilumbar/sacroiliac discomfort Lumbar radiculopathy (Chronic) Lung nodule (Chronic) (12/18/14-[place])01/19/2015 - CT Scan done at [facility]: 13 x 9mm pleural based pulmonary nodule in the posterior basilar segment of the left lower lobe. 06/2017: nodule Unchanged; likely scar tissue Malaise (Acute) Medicare annual wellness visit, initial (Acute) Nocturnal hypoxia (Acute) Numbness of foot (Acute) Opioid dependence (Chronic) Osteoporosis screening (Chronic) Bone density update in 01/2012 showing essentially normal bone density; five year sequencing; stable vitamin D level three years ago Paroxysmal atrial fibrillation (Chronic) Pelvic fracture (Chronic) on the left in October of 2012 Respiratory symptoms (Resolved) Restless legs (Chronic) Stable on Requip Sacroiliitis (Chronic) Situational depression (Chronic) 's in Sep, improved with her new partner Thrush, oral (Acute) Vaginal pain (Acute) Wheezing (Resolved) Surgical History Cystocele (Chronic) cystocele repair H/O colonoscopy (Chronic) 02/11/2013-, on five year sequencing through Dr Solitario History of arthroplasty (Chronic) 12/16/2014-Right total shoulder Status post op left knee; reop in August of 2009 with persisting discomfort, extensive reevaluation including bone scan; xrays; and orthopaedic review History of hysterectomy (Chronic) Status post complete hysterectomy; cystic breast change, mammogram 03/22/13 History of surgery (Acute) SI Joint Inj. Rt. w/sed 05/13/202007/20 SI Joint Injection, Rt w/sed 07/29/1905/14 SI Joint Injection right w/o sed 05/07/201301/12 LESI #1 L4-5 w/o sed 01/02/13 Hx of cholecystectomy (Chronic) 2000- Laparoscopic Family History Mother Malignant neoplasm of breast Social History (Updated 10/13/20 @ 10:28 by Yesi Martin CMA) household members: significant other housing: house lives independently: Yes marital status: single occupational status: retired smoking status: Former smoker quit date: 10/02/98 pack-years: 30 alcohol intake frequency: 0-2 drinks per day substance use type: does not use MEDS/ALLERGIES Home Medications and Allergies Home Medications Medication Instructions Recorded Confirmed Type ascorbic acid (vitamin C) 500 mg 500 mg PO QDAY 06/27/17 10/18/20 History tablet cholecalciferol (vitamin D3) 25 2,000 unit PO QDAY cap 07/25/18 10/18/20 History mcg (1,000 unit) capsule nebulizers 10/04/18 10/13/20 History ropinirole 1 mg tablet 1 mg PO BIDP PRN #90 tab 12/02/19 10/18/20 Rx albuterol sulfate 90 mcg/actuation 2 puff INHALATION QID #18 g 03/23/20 10/18/20 Rx aerosol inhaler fluticasone furoate 200 1 inh INHALATION Q24H #60 each 04/20/20 10/18/20 Rx mcg-vilanterol 25 mcg/dose inhalation powder clotrimazole 10 mg silvestre 10 mg PO DAILY tab 06/09/20 10/18/20 History montelukast 10 mg tablet 10 mg PO QHS tab 08/11/20 10/18/20 History omega-3 fatty acids PO 08/11/20 10/13/20 History levothyroxine 100 mcg tablet 100 mcg PO QDAY #30 tab 08/25/20 10/18/20 Rx hydrocodone 7.5 mg-acetaminophen 1 tab PO BID PRN 30 Days #60 tab 09/23/20 10/18/20 Rx 325 mg tablet losartan 50 mg PO DAILY 10/18/20 10/18/20 History metoprolol tartrate 50 mg PO BID 10/18/20 10/18/20 History omega 2-plr-ltn-fish oil [Fish Oil] 1 cap PO QDAY 10/18/20 10/18/20 History Allergies Allergy/AdvReac Type Severity Reaction Status Date / Time celecoxib [From CELEBREX] AdvReac Mild Unknown Verified 10/18/20 09:07 clindamycin [From CLEOCIN] AdvReac Mild Unknown Verified 10/18/20 09:07 Diclofenac AdvReac Mild Unknown Verified 10/18/20 09:07 [From ARTHROTEC 50] lisinopril [LISINOPRIL] AdvReac Mild COUGH Verified 10/18/20 09:07 misoprostol AdvReac Mild Unknown Verified 10/18/20 09:07 [From ARTHROTEC 50] morphine [MORPHINE] AdvReac Mild Hallucinati Verified 10/18/20 09:07 ons triamcinolone [From KENALOG] AdvReac Mild Unknown Verified 10/18/20 09:07 EXAM Constitutional Vitals: Temp Pulse Resp BP Pulse Ox 98.8 F 66 23 H 103/60 95 10/18/20 09:02 10/18/20 11:46 10/18/20 11:46 10/18/20 11:46 10/18/20 11:46 Anxious Head normocephalic Oral cavity moist No ear nose discharge Eye movement symmetrical Neck supple no lymphadenopathy S1-S2 irregular Nonlabored breathing Nondistended nontender abdomen Lower extremity no cyanosis clubbing or joint swelling Skin no suspicious lesion Psych anxious no hallucination Neuro normal higher function DATA Data Completed and Pending Labs: Labs from last 24 hours 10/18/20 10/18/20 10/18/20 12:10 09:35 09:35 WBC RBC Hgb Hct MCV MCH MCHC RDW Plt Count MPV Neut % (Auto) Lymph % (Auto) [place] % (Auto) Eos % (Auto) Baso % (Auto) Lymph # (Auto) [place] # (Auto) Eos # (Auto) Baso # (Auto) Absolute Neutrophils PT INR Sodium Potassium Chloride Carbon Dioxide Anion Gap BUN Creatinine GFR Calculation Glucose Calcium Magnesium Total Bilirubin AST ALT Alkaline Phosphatase Troponin T < 0.01 NT-Pro-B Natriuret Pep Total Protein Albumin Globulin Albumin/Globulin Ratio Lipase Procalcitonin 1.48 H Urine Color Pending Urine Appearance Pending Urine pH Pending Ur Specific [place] Pending Urine Protein Pending Urine Glucose (UA) Pending Urine Ketones Pending Urine Occult Blood Pending Urine Nitrate Pending Urine Bilirubin Pending Urine Urobilinogen Pending Ur Leukocyte Esterase Pending 10/18/20 10/18/20 10/18/20 09:35 09:35 09:35 WBC 25.1 H RBC 4.81 Hgb 14.3 Hct 44.7 MCV 92.9 MCH 29.7 MCHC 32.0 RDW 12.3 Plt Count 187 MPV 10.5 H Neut % (Auto) 87.9 H Lymph % (Auto) 6.1 L [place] % (Auto) 5.8 Eos % (Auto) 0 Baso % (Auto) 0.2 Lymph # (Auto) 1.52 [place] # (Auto) 1.45 H Eos # (Auto) 0.01 Baso # (Auto) 0.06 Absolute Neutrophils 22.04 H PT 14.7 H INR 1.1 Sodium 138 Potassium 3.9 Chloride 99 Carbon Dioxide 26 Anion Gap 13.0 BUN 16 Creatinine 0.7 GFR Calculation 79 Glucose 138 H Calcium 9.4 Magnesium 1.7 Total Bilirubin 1.1 H AST 23 ALT 22 Alkaline Phosphatase 54 Troponin T NT-Pro-B Natriuret Pep 1606.0 H Total Protein 5.8 L Albumin 3.7 Globulin 2.1 L Albumin/Globulin Ratio 1.8 Lipase 13 Procalcitonin Urine Color Urine Appearance Urine pH Ur Specific [place] Urine Protein Urine Glucose (UA) Urine Ketones Urine Occult Blood Urine Nitrate Urine Bilirubin Urine Urobilinogen Ur Leukocyte Esterase A/P Narrative A/P Narrative: * Severe sepsis-secondary to multifocal pneumonia. Continue management guidelines, crystalloids, antibiotics, pancultures and close hemodynamic support * Multifocal chest infiltrates consistent with aspiration pneumonia-broad antibiotic/anaerobic coverage. Aspiration precautions. * Acute hypoxic respiratory failure secondary to above-supplemental oxygen * Complicated UTI continue to biotic coverage, de-escalate based on culture sensitivities * History of atrial fibrillation currently rate controlled. Continue beta- juan/anticoagulation on apixaban * History of COPD/nocturnal hypoxemia currently on oxygen with acute decompensation secondary pneumonia. Continue bronchodilators/oxygen support * Restless leg syndrome continue ropinirole * History of degenerative disease continue hydrocodone * History of hypertension continue statin/metoprolol * Hypothyroidism continue thyroxine * Limited code no CPR/intubation okay Plan * Inpatient PCU admission * Antibiotic coverage * Supplemental oxygen * Bronchodilators/pulmonary toilet * Pre-existing medical condition management home medications * PT OT nutrition support * Discharge planning per case management Time Spent With Patient Time: Total time spent is greater than 50% in coordination of care (as documented) at patient's floor/unit and/or counseling patient:
[2020-10-18] MEDS ORDERED: AZITHROMYCIN 500 MG in DEXTROSE 5% IN WATER 250 ML IV SCH (12:30)
[2020-10-18] MEDS ORDERED: cefTRIAXone 2 GM in DEXTROSE 5% IN WATER 50 ML IV SCH (12:30)
[2020-10-18] MEDS ORDERED: PHENobarb/HYOSCY/ATROPINE/SCOP 1 DOSE BOTTLE PO ONE (13:01)
[2020-10-18] MEDS ORDERED: OMEPRAZOLE 20 MG CAPSULE PO ONE (13:01)
--- NOTE | 2020-10-18 13:04 | XRay Report ---
CLINICAL INFORMATION: dyspnea COMPARISON: 11/04/2019 FINDINGS: The heart is minimally enlarged, but unchanged. Mediastinum and pulmonary vessels are normal. Moderate right basilar infiltrate and small patchy left basilar infiltrate have developed. No effusion IMPRESSION: Moderate right basilar and small patchy left basilar infiltrates. Consider infection or aspiration Interpreted and Authenticated by: David Xie 10/18/20
[2020-10-18 13:14] LABS: Appearance,Urine CLEAR (Clear); Bacteria,Urine FEW /hpf (0); Bilirubin,Urine Negative (Negative); Color,Urine YELLOW; Culture Indicated,Urine yes; Glucose,Urine (UA) Negative (Negative); Ketones,Urine 5 mg/dL (Negative); Leukocyte Esterase,Urine 75 /ug (Negative); Mucus,Urine FEW /hpf; Nitrate,Urine POS (Negative); Protein,Urine Negative (Negative); Specific Gravity,Urine 1.024 (1.000-1.035); Urine Blood Negative (Negative); Urine Hyaline Cast 4 /lph (0-2); Urine RBC 2 /hpf (0-3); Urine Squamous Epithelial Cell < 1 /hpf (0-4); Urine Transitional Epi Cells 1 /hpf (0-2); Urine WBC 36 /hpf (0-4); Urobilinogen,Urine Negative
[2020-10-18] MEDS ORDERED: PANTOPRAZOLE 40 MG VIAL IV ONE (13:15)
[2020-10-18] MEDS ORDERED: rOPINIRole 1 MG TABLET PO PRN (15:53)
[2020-10-18] MEDS ORDERED: guaiFENesin/CODEINE 10 ML UDC PO PRN (15:53)
[2020-10-18] MEDS: metroNIDAZOLE 500 MG/100 ML BAG IV SCH ×2 (16:36→22:12)
[2020-10-18] MEDS: 0.9 % SODIUM CHLORIDE 10 ML SYRINGE IV SCH ×2 (16:37→22:14)
[2020-10-18] MEDS ORDERED: ALBUTEROL SULFATE 200 PUFF INHALER INH PRN (17:00)
[2020-10-18] MEDS: HYDROCODONE/APAP 7.5/325MG TABLET PO PRN (17:36)
[2020-10-18] MEDS: DOCUSATE SODIUM 100 MG CAPSULE PO SCH (19:15)
[2020-10-18] MEDS: METOPROLOL TARTRATE 50 MG TABLET PO SCH (19:27)
[2020-10-18] MEDS ORDERED: APIXABAN 5 MG TABLET PO SCH (21:00)
[2020-10-18] MEDS ORDERED: MONTELUKAST 10 MG TABLET PO SCH (21:00)
[2020-10-18] MEDS ORDERED: HEPARIN 5,000 UNIT/ML VIAL SQ SCH (21:00)
[2020-10-18] MEDS ORDERED: SENNOSIDES/DOCUSATE SODIUM 1 TAB TABLET PO SCH (21:00)
[2020-10-18] MEDS ORDERED: NOREPINEPHRINE BITARTRATE 16 MG in 0.9 % SODIUM CHLORIDE 234 ML IV SCH (21:15)
[2020-10-18] MEDS: 0.9 % SODIUM CHLORIDE 250 ML IV SCH (21:37)
[2020-10-19] MEDS: metroNIDAZOLE 500 MG/100 ML BAG IV SCH ×4 (05:22→20:19)
[2020-10-19] MEDS: 0.9 % SODIUM CHLORIDE 10 ML SYRINGE IV SCH ×4 (05:22→20:19)
[2020-10-19 06:17] LABS: Basophils # (Auto) 0.02 K/mcL (0.00-0.20); Basophils % (Auto) 0.1 % (0.0-2.0); Eosinophils # (Auto) 0 K/mcL (0.00-0.70); Eosinophils % (Auto) 0 % (0.0-7.0); Hematocrit 41.3 % (36.0-48.0); Hemoglobin 13.2 g/dL (12.0-15.0); Lymphocytes # (Auto) 1.04 K/mcL (1.50-4.80); Lymphocytes % (Auto) 5.8 % (15.0-49.0); Mean Platelet Volume 10.9 fL (7.4-10.4); Monocytes # (Auto) 0.45 K/mcL (0.10-0.90); Monocytes % (Auto) 2.5 % (1.0-12.0); Neutrophils % (Auto) 91.6 % (38.0-78.0); Platelet Count 161 K/mcL (140-440); RBC 4.49 M/mcL (4.00-5.20); Red Cell Distribution Width 12.2 % (11.5-14.5); WBC 17.9 K/mcL (4.5-11.0)
[2020-10-19 06:44] LABS: ALT/SGPT 21 U/L (<40); AST/SGOT 18 U/L (<32); Albumin 3.4 gm/dL (3.2-5.2); Albumin/Globulin Ratio 1.5 (1.0-2.3); Alkaline Phosphatase 53 U/L (39-117); Bilirubin,Direct < 0.2 mg/dL (<0.3); Bilirubin,Total 0.4 mg/dL (0.1-1.0); Blood Urea Nitrogen 16 mg/dL (8-23); Calcium 9.6 mg/dL (8.6-10.4); Carbon Dioxide 25 mmol/L (22-30); Chloride 106 mmol/L (96-108); Globulin 2.2 gm/dL (2.2-3.7); Glomerular Filtration Rate 79; Glucose 156 mg/dL (70-105); Lactate Dehydrogenase 123 U/L (135-225); Phosphorous 2.1 mg/dL (2.5-4.5); Triglycerides 52 mg/dL (<150); Uric Acid 3.3 mg/dL (2.5-8.0)
[2020-10-19] MEDS ORDERED: LEVOTHYROXINE 100 MCG TABLET PO SCH (07:30)
[2020-10-19] MEDS: METOPROLOL TARTRATE 50 MG TABLET PO SCH ×2 (07:49→19:53)
[2020-10-19] MEDS: DOCUSATE SODIUM 100 MG CAPSULE PO SCH ×2 (07:53→19:53)
[2020-10-19] MEDS: 0.9 % SODIUM CHLORIDE 250 ML IV SCH (07:53)
[2020-10-19] MEDS: CLOTRIMAZOLE 10 MG TROCHE PO SCH ×2 (07:53→08:46)
[2020-10-19] MEDS: Fluticasone Furoate-Vilanterol [Breo Ellipta] Inhaler INH SCH ×3 (07:53→10:41)
--- NOTE | 2020-10-19 08:38 | Internal Med Progress Note ---
SUBJECTIVE Subjective Patient information: Note initiated : 10/19/20 at 8:33 am Service Date, if different from initiated Date: [] Patient: Charlotte Keller a 85 y/o F admitted on 10/18/20 for shortness of breath. Chief Complaint: [] Interval history: Ms. Keller is a 85 year old F with history of COPD/nocturnal hypoxemia on oxygen/PAF/HTN/RLS and intermittent dysphagia who presents to the ER with 3-day onset of worsening shortness of breath/cough/weakness and generalized malaise. Patient lives with her Remi in [place] and was in her baseline state of health until few days prior presentation. Initial work-up in the ER was consistent with severe sepsis/WBC 25/pyuria/multifocal chest infiltrates consistent with pneumonia. COVID-19 test negative. Patient was started antibiotic coverage after cultures were drawn. Hospitalist service consulted. At the time of evaluation patient is accompanied with her Remi. She was able to answer most the question. She does not seem to apparent distress and feels better. She endorses history as above. She endorsed to choking episode 3 days ago and has noted frequent swallowing difficulty since last 1 year but has been very careful about it. She endorses to degenerative joint disease but no recent change in symptom including dysuria, diarrhea, bloody stool, headache, photophobia, myalgia or neck stiffness. She denies sick contacts or change in medications. 10/19-patient doing well. No overnight events. White count down to 17,000. Hypoxia much improved now on 2 L oxygen. Improved work of breathing and able to talk in full sentences. Stable hemodynamics. Cultures negative so far. Continuing antibiotic coverage. De-escalate based on cultures once available. Continue therapy/ST eval Constitutional Vitals: Vital Signs Temp Pulse Resp BP Pulse Ox 98.0 F 79 13 118/63 97 10/19/20 08:01 10/19/20 08:01 10/19/20 08:01 10/19/20 08:01 10/19/20 08:01 Period Temp Pulse Resp BP Sys/Park Pulse Ox Last 24 Hr 97.3 F-98.8 F 55-79 13-25 96-120/52-90 93-99 Intake and Output 10/18/20 10/19/20 10/19/20 21:59 05:59 13:59 Intake Total 365 100 500 Output Total 450 275 Balance -85 -175 500 Weight 64.41 kg Alert oriented nonlabored breathing No anxiety Nondistended abdomen Intake & Output: Intake & Output 10/18/20 10/19/20 10/19/20 21:59 05:59 13:59 Intake Total 365 100 500 Output Total 450 275 Balance -85 -175 500 Weight 64.41 kg Intake: IV 165 100 100 Oral 200 400 Output: Void Amount 450 275 Other: Meal Dinner Percent of Meal Consumed 50% Feeding Ability Independent Urine Appearance Clear Clear Urine Color Bright Yellow Bright Yellow Urine Odor Strong Normal OBJ DATA Labs CBC & Chem 7: 10/19/20 04:21 10/19/20 04:21 Labs: Abnormal Lab Results 10/19/20 10/19/20 10/18/20 04:21 04:21 12:10 WBC 17.9 H MPV 10.9 H Neut % (Auto) 91.6 H Lymph % (Auto) 5.8 L Lymph # (Auto) 1.04 L [place] # (Auto) Absolute Neutrophils 16.37 H PT Glucose 156 H Phosphorus 2.1 L Total Bilirubin Lactate Dehydrogenase 123 L NT-Pro-B Natriuret Pep Total Protein 5.6 L Globulin Procalcitonin Urine Ketones 5 A Urine Nitrate Pos A Ur Leukocyte Esterase 75 A Urine WBC 36 H Urine Bacteria Few A Hyaline Casts 4 H Urine Mucus Few A 10/18/20 10/18/20 10/18/20 09:35 09:35 09:35 WBC MPV Neut % (Auto) Lymph % (Auto) Lymph # (Auto) [place] # (Auto) Absolute Neutrophils PT 14.7 H Glucose 138 H Phosphorus Total Bilirubin 1.1 H Lactate Dehydrogenase NT-Pro-B Natriuret Pep 1606.0 H Total Protein 5.8 L Globulin 2.1 L Procalcitonin 1.48 H Urine Ketones Urine Nitrate Ur Leukocyte Esterase Urine WBC Urine Bacteria Hyaline Casts Urine Mucus 10/18/20 09:35 WBC 25.1 H MPV 10.5 H Neut % (Auto) 87.9 H Lymph % (Auto) 6.1 L Lymph # (Auto) [place] # (Auto) 1.45 H Absolute Neutrophils 22.04 H PT Glucose Phosphorus Total Bilirubin Lactate Dehydrogenase NT-Pro-B Natriuret Pep Total Protein Globulin Procalcitonin Urine Ketones Urine Nitrate Ur Leukocyte Esterase Urine WBC Urine Bacteria Hyaline Casts Urine Mucus Meds: Medications Acetaminophen (Tylenol) 650 mg PO Q4-6HP PRN; Protocol PRN Reason: Per Pain Protocol/Fever > 101 Hydrocodone Bitart/Acetaminophen ([place] 7.5/325mg) 1 tab PO BIDP PRN; Protocol PRN Reason: pain, moderate Last Admin: 10/18/20 17:36 Dose: 1 tab Documented by: Albuterol Sulfate (Ventolin) 2 puff INH QIDP PRN PRN Reason: Shortness Of Breath Albuterol/Ipratropium (Duoneb) 3 ml NEB Q4HP PRN PRN Reason: Shortness Of Breath Apixaban (Eliquis) 2.5 mg PO HS [facility] Last Admin: 10/18/20 19:27 Dose: 2.5 mg Documented by: Ascorbic Acid (Vitamin C) 500 mg PO QDAY [facility] Last Admin: 10/19/20 07:52 Dose: 500 mg Documented by: Bisacodyl (Dulcolax) 10 mg [place] Q2-3DAYS PRN PRN Reason: Constipation Clotrimazole (Mycelex) 10 mg PO DAILY [facility] Last Admin: 10/19/20 07:53 Dose: 10 mg Documented by: Docusate Sodium (Colace) 100 mg PO BID [facility] Last Admin: 10/19/20 07:53 Dose: Not Given Documented by: Guaifenesin/Codeine Phosphate (Robitussin Ac) 10 ml PO Q4HP PRN PRN Reason: Cough Potassium Chloride 40 meq/ (Dextrose) 520 mls @ 130 mls/hr IV UD PRN PRN Reason: K+ = or < 3.5 Acetaminophen (Ofirmev) 650 mg in 65 mls @ 130 mls/hr IV Q6HP PRN; Protocol PRN Reason: Per Pain Protocol/Fever > 101 Last Infusion: 10/18/20 14:12 Dose: Infused Documented by: Magnesium Sulfate (Magnesium Sulfate) 2 gm in 50 mls @ 50 mls/hr IV UD PRN PRN Reason: MG = or < 1.7 Ceftriaxone Sodium 2 gm/ (Dextrose) 50 mls @ 100 mls/hr IV Q24H [facility]; Protocol Last Admin: 10/19/20 08:23 Dose: 100 mls/hr Documented by: Azithromycin 500 mg/ Dextrose 250 mls @ 250 mls/hr IV Q24H [facility]; Protocol Stop: 10/21/20 10:59 Metronidazole (Flagyl) 500 mg in 100 mls @ 100 mls/hr IV Q8H [facility]; Protocol Last Infusion: 10/19/20 06:30 Dose: Infused Documented by: Norepinephrine Bitartrate 16 (mg/ Sodium Chloride) 250 mls @ 9.375 mls/hr IV Q24H [facility]; Protocol Last Admin: 10/18/20 21:37 Dose: Not Given Documented by: Sodium Chloride (Sodium Chloride 0.9%) 250 mls @ 20 mls/hr IV .[id number] [facility] Last Admin: 10/19/20 07:53 Dose: Not Given Documented by: Iron Carb/Multivit/Sagger Preparer/Folic Acid (Multivitamin W/Minerals) 1 tab PO DAILY [facility] Last Admin: 10/19/20 07:52 Dose: 1 tab Documented by: Levothyroxine Sodium (Synthroid) 100 mcg PO QAMAC [facility] Last Admin: 10/19/20 08:23 Dose: 100 mcg Documented by: Losartan Potassium (Cozaar) 50 mg PO DAILY [facility] Last Admin: 10/19/20 07:53 Dose: 50 mg Documented by: Melatonin (Melatonin 3mg Tablet) 3 mg PO HSP PRN PRN Reason: Insomnia Last Admin: 10/19/20 01:22 Dose: 3 mg Documented by: Metoprolol Tartrate (Lopressor) 50 mg PO BID [facility] Last Admin: 10/19/20 07:49 Dose: 50 mg Documented by: Montelukast Sodium (Singular) 10 mg PO QHS [facility] Last Admin: 10/18/20 19:27 Dose: 10 mg Documented by: Ondansetron HCl (Zofran Odt) 4 mg SL Q4-6HP PRN; Protocol PRN Reason: Nausea And Vomiting Ondansetron HCl (Zofran) 4 mg IV Q4-6HP PRN; Protocol PRN Reason: Nausea And Vomiting Last Admin: 10/18/20 13:20 Dose: 4 mg Documented by: Fluticasone Furoate- Vilanterol [Breo Ellipta] Inhaler 1 dose INH Q24H [facility] Last Admin: 10/19/20 07:53 Dose: Not Given Documented by: Polyethylene Glycol (Miralax) 17 gm PO DAILYP PRN PRN Reason: Constipation Potassium Chloride (Klor-Con) 40 meq PO DAILYP PRN PRN Reason: K+ < 3.5 Ropinirole HCl (Requip) 1 mg PO BIDP PRN PRN Reason: Muscle Spasm Senna/Docusate Sodium (Senna Plus Tablet) 1 tab PO HS [facility] Last Admin: 10/18/20 19:15 Dose: Not Given Documented by: Sodium Chloride (Saline Flush) 10 ml IV Q8 [facility] Last Admin: 10/19/20 05:22 Dose: 10 ml Documented by: Vitamin D (Vitamin D3) 2,000 unit PO DAILY [facility] Last Admin: 10/19/20 08:23 Dose: 2,000 unit Documented by: A/P Narrative A/P Narrative: * Severe sepsis-secondary to multifocal pneumonia. Clinical improvement noted with downtrending white count from 25,000-17,000. Continue management on antibiotics * Multifocal chest infiltrates consistent with aspiration pneumonia-broad antibiotic/anaerobic coverage. Aspiration precautions. Await ST eval * Acute hypoxic respiratory failure secondary to above-weaning oxygen as tolerated currently on 2 L oxygen * Complicated UTI -improving. De-escalate antibiotics based on culture sensitivities * History of atrial fibrillation currently rate controlled. Continue beta- juan/anticoagulation on apixaban * History of COPD/nocturnal hypoxemia currently on oxygen with acute decompensation secondary pneumonia. Continue bronchodilators/oxygen support * Restless leg syndrome well-controlled on ropinirole * History of DJD HTN continue hydrocodone * History of HTN continue statin/metoprolol * Hypothyroidism continue thyroxine * Limited code no CPR/intubation okay Plan * Antibiotic coverage * Wean oxygen as tolerated * Bronchodilators/pulmonary toilet * Pre-existing medical condition management home medications * PT OT nutrition support * Discharge planning per case management Time Spent With Patient Time: Total time spent is greater than 50% in coordination of care (as documented) at patient's floor/unit and/or counseling patient: QUALITY VTE Deep Vein Thrombosis/Pulmonary Embolism Present on Admission: No
[2020-10-19] MEDS ORDERED: LOSARTAN 50 MG TABLET PO SCH (09:00)
[2020-10-19] MEDS ORDERED: cefTRIAXone 2 GM in DEXTROSE 5% IN WATER 50 ML IV SCH (09:00)
[2020-10-19] MEDS ORDERED: MULTIVIT,THER IRON,CA,FA & MIN 1 TABLET PO SCH (09:00)
[2020-10-19] MEDS ORDERED: VITAMIN D3 1,000 UNIT TABLET PO SCH (09:00)
[2020-10-19] MEDS ORDERED: ASCORBIC ACID 500 MG TABLET PO SCH (09:00)
[2020-10-19] MEDS: HYDROCODONE/APAP 7.5/325MG TABLET PO PRN ×2 (09:01→17:57)
[2020-10-19] MEDS ORDERED: AZITHROMYCIN 500 MG in DEXTROSE 5% IN WATER 250 ML IV SCH (10:00)
[2020-10-19] MEDS ORDERED: POLYETHYLENE GLYCOL 3350 17 GM PACKET PO PRN (10:15)
[2020-10-19] MEDS ORDERED: rOPINIRole 1 MG TABLET PO PRN (10:15)
[2020-10-19] MEDS ORDERED: ACETAMINOPHEN 650 MG/65 ML BAG IV PRN (10:15)
[2020-10-19] MEDS ORDERED: IPRATROPIUM/ALBUTEROL 3 ML AMPUL.NEB NEB PRN (10:15)
[2020-10-19] MEDS ORDERED: ONDANSETRON 4 MG/2 ML VIAL IV PRN (10:15)
[2020-10-19] MEDS ORDERED: ONDANSETRON 4 MG ODT TABLET SL PRN (10:15)
[2020-10-19] MEDS ORDERED: MAGNESIUM SULFATE 2 GM/50 ML BAG IV PRN (10:15)
[2020-10-19] MEDS ORDERED: POTASSIUM CHLORIDE 20 MEQ PACKET PO PRN (10:15)
[2020-10-19] MEDS ORDERED: 0.9 % SODIUM CHLORIDE 250 ML IV SCH ×2 (10:15)
[2020-10-19] MEDS ORDERED: ALBUTEROL SULFATE 200 PUFF INHALER INH PRN (10:15)
[2020-10-19] MEDS ORDERED: BISACODYL 10 MG SUPP.RECT PR PRN (10:15)
[2020-10-19] MEDS ORDERED: POTASSIUM CHLORIDE 40 MEQ in DEXTROSE 5% IN WATER 500 ML IV PRN (10:15)
[2020-10-19] MEDS ORDERED: HYDROCODONE/APAP 7.5/325MG TABLET PO PRN (10:15)
[2020-10-19] MEDS ORDERED: guaiFENesin/CODEINE 10 ML UDC PO PRN (10:15)
[2020-10-19] MEDS ORDERED: NOREPINEPHRINE BITARTRATE 16 MG in 0.9 % SODIUM CHLORIDE 234 ML IV PRN (10:21)
--- NOTE | 2020-10-19 13:07 | Internal Med Progress Note ---
SUBJECTIVE Subjective Patient information: Note initiated : 10/19/20 at 1:02 pm Service Date, if different from initiated Date: [] Patient: Charlotte Keller a 85 y/o F admitted on 10/18/20 for shortness of breath. Chief Complaint: [] Interval history: Ms. Keller is a 85 year old F with history of COPD/nocturnal hypoxemia on oxygen/PAF/HTN/RLS and intermittent dysphagia who presents to the ER with 3-day onset of worsening shortness of breath/cough/weakness and generalized malaise. Patient lives with her Remi in [place] and was in her baseline state of health until few days prior presentation. Initial work-up in the ER was consistent with severe sepsis/WBC 25/pyuria/multifocal chest infiltrates consistent with pneumonia. COVID-19 test negative. Patient was started antibiotic coverage after cultures were drawn. Hospitalist service consulted. At the time of evaluation patient is accompanied with her Remi. She was able to answer most the question. She does not seem to apparent distress and feels better. She endorses history as above. She endorsed to choking episode 3 days ago and has noted frequent swallowing difficulty since last 1 year but has been very careful about it. She endorses to degenerative joint disease but no recent change in symptom including dysuria, diarrhea, bloody stool, headache, photophobia, myalgia or neck stiffness. She denies sick contacts or change in medications. 10/19-patient doing well. No overnight events. White count down to 17,000. Hypoxia much improved now on 2 L oxygen. Improved work of breathing and able to talk in full sentences. Stable hemodynamics. Cultures negative so far. Continuing antibiotic coverage. De-escalate based on cultures once available. Continue therapy/ST eval Constitutional Vitals: Vital Signs Temp Pulse Resp BP Pulse Ox 98.8 F 71 16 104/61 91 10/19/20 12:00 10/19/20 12:00 10/19/20 12:00 10/19/20 12:00 10/19/20 12:00 Period Temp Pulse Resp BP Sys/Park Pulse Ox Last 24 Hr 97.3 F-98.8 F 55-79 13-25 99-118/53-90 91-98 Intake and Output 10/18/20 10/19/20 10/19/20 21:59 05:59 13:59 Intake Total 365 100 800 Output Total 450 275 450 Balance -85 -175 350 Weight 64.41 kg Intake & Output: Intake & Output 10/18/20 10/19/20 10/19/20 21:59 05:59 13:59 Intake Total 365 100 800 Output Total 450 275 450 Balance -85 -175 350 Weight 64.41 kg Intake: IV 165 100 400 Zithromax 500 mg In Dextrose 5% 250 in Water 250 ml @ 250 mls/hr IV Q24H [facility] Rx#:[id number] Rocephin 2 gm In Dextrose 5% in 50 Water 50 ml @ 100 mls/hr IV Q24H [facility] Rx#:[id number] Oral 200 400 Output: Void Amount 450 275 450 Other: Meal Dinner Percent of Meal Consumed 50% Feeding Ability Independent Urine Appearance Clear Clear Urine Color Bright Yellow Bright Yellow Urine Odor Strong Normal Stool Size Moderate Stool Color Brown Stool Consistency Soft Formed # Bowel Movements 1 Exam: General: Alert, Awake, No acute Distress Eyes/N/T: EOMI, Head/Neck: neck supple, CV: RRR, No murmurs, Pulm: Clear b/l, no wheezing/rhonchi/rales Abd: soft, nontender, +BS x4 Ext: no clubbing/cyanosis/edema Neuro: Alert, no focal deficits, moves all extremities, Skin: warm/dry OBJ DATA Labs CBC & Chem 7: 10/19/20 04:21 10/19/20 04:21 Labs: Abnormal Lab Results 10/19/20 10/19/20 10/18/20 04:21 04:21 12:10 WBC 17.9 H MPV 10.9 H Neut % (Auto) 91.6 H Lymph % (Auto) 5.8 L Lymph # (Auto) 1.04 L [place] # (Auto) Absolute Neutrophils 16.37 H PT Glucose 156 H Phosphorus 2.1 L Total Bilirubin Lactate Dehydrogenase 123 L NT-Pro-B Natriuret Pep Total Protein 5.6 L Globulin Procalcitonin Urine Ketones 5 A Urine Nitrate Pos A Ur Leukocyte Esterase 75 A Urine WBC 36 H Urine Bacteria Few A Hyaline Casts 4 H Urine Mucus Few A 10/18/20 10/18/20 10/18/20 09:35 09:35 09:35 WBC MPV Neut % (Auto) Lymph % (Auto) Lymph # (Auto) [place] # (Auto) Absolute Neutrophils PT 14.7 H Glucose 138 H Phosphorus Total Bilirubin 1.1 H Lactate Dehydrogenase NT-Pro-B Natriuret Pep 1606.0 H Total Protein 5.8 L Globulin 2.1 L Procalcitonin 1.48 H Urine Ketones Urine Nitrate Ur Leukocyte Esterase Urine WBC Urine Bacteria Hyaline Casts Urine Mucus 10/18/20 09:35 WBC 25.1 H MPV 10.5 H Neut % (Auto) 87.9 H Lymph % (Auto) 6.1 L Lymph # (Auto) [place] # (Auto) 1.45 H Absolute Neutrophils 22.04 H PT Glucose Phosphorus Total Bilirubin Lactate Dehydrogenase NT-Pro-B Natriuret Pep Total Protein Globulin Procalcitonin Urine Ketones Urine Nitrate Ur Leukocyte Esterase Urine WBC Urine Bacteria Hyaline Casts Urine Mucus Meds: Medications Acetaminophen (Tylenol) 650 mg PO Q4-6HP PRN; Protocol PRN Reason: Per Pain Protocol/Fever > 101 Hydrocodone Bitart/Acetaminophen ([place] 7.5/325mg) 1 tab PO BIDP PRN; Protocol PRN Reason: pain, moderate Albuterol Sulfate (Ventolin) 2 puff INH QIDP PRN PRN Reason: Shortness Of Breath Albuterol/Ipratropium (Duoneb) 3 ml NEB Q4HP PRN PRN Reason: Shortness Of Breath Apixaban (Eliquis) 2.5 mg PO HS [facility] Ascorbic Acid (Vitamin C) 500 mg PO QDAY [facility] Bisacodyl (Dulcolax) 10 mg [place] Q2-3DAYS PRN PRN Reason: Constipation Clotrimazole (Mycelex) 10 mg PO DAILY [facility] Docusate Sodium (Colace) 100 mg PO BID [facility] Guaifenesin/Codeine Phosphate (Robitussin Ac) 10 ml PO Q4HP PRN PRN Reason: Cough Azithromycin 500 mg/ Dextrose 250 mls @ 250 mls/hr IV Q24H [facility]; Protocol Stop: 10/21/20 10:59 Ceftriaxone Sodium 2 gm/ (Dextrose) 50 mls @ 100 mls/hr IV Q24H [facility]; Protocol Magnesium Sulfate (Magnesium Sulfate) 2 gm in 50 mls @ 50 mls/hr IV UD PRN PRN Reason: MG = or < 1.7 Potassium Chloride 40 meq/ (Dextrose) 520 mls @ 130 mls/hr IV UD PRN PRN Reason: K+ = or < 3.5 Sodium Chloride (Sodium Chloride 0.9%) 250 mls @ 20 mls/hr IV .[id number] [facility] Last Admin: 10/19/20 10:27 Dose: Not Given Documented by: Acetaminophen (Ofirmev) 650 mg in 65 mls @ 130 mls/hr IV Q6HP PRN; Protocol PRN Reason: Per Pain Protocol/Fever > 101 Metronidazole (Flagyl) 500 mg in 100 mls @ 100 mls/hr IV Q8H [facility]; Protocol Norepinephrine Bitartrate 16 (mg/ Sodium Chloride) 250 mls @ 9.375 mls/hr IV Q24HP PRN; Protocol PRN Reason: Hypotension Sodium Chloride (Sodium Chloride 0.9%) 250 mls @ 20 mls/hr IV .[id number] [facility] Last Admin: 10/19/20 10:27 Dose: Not Given Documented by: Iron Carb/Multivit/[place]/Folic Acid (Multivitamin W/Minerals) 1 tab PO DAILY [facility] Levothyroxine Sodium (Synthroid) 100 mcg PO QAMAC [facility] Losartan Potassium (Cozaar) 50 mg PO DAILY [facility] Melatonin (Melatonin 3mg Tablet) 3 mg PO HSP PRN PRN Reason: Insomnia Metoprolol Tartrate (Lopressor) 50 mg PO BID [facility] Montelukast Sodium (Singular) 10 mg PO QHS [facility] Ondansetron HCl (Zofran Odt) 4 mg SL Q4-6HP PRN; Protocol PRN Reason: Nausea And Vomiting Ondansetron HCl (Zofran) 4 mg IV Q4-6HP PRN; Protocol PRN Reason: Nausea And Vomiting Fluticasone Furoate- Vilanterol [Breo Ellipta] Inhaler 1 dose INH Q24H [facility] Last Admin: 10/19/20 10:40 Dose: 1 dose Documented by: Polyethylene Glycol (Miralax) 17 gm PO DAILYP PRN PRN Reason: Constipation Potassium Chloride (Klor-Con) 40 meq PO DAILYP PRN PRN Reason: K+ < 3.5 Ropinirole HCl (Requip) 1 mg PO BIDP PRN PRN Reason: Muscle Spasm Senna/Docusate Sodium (Senna Plus Tablet) 1 tab PO HS [facility] Sodium Chloride (Saline Flush) 10 ml IV Q8 [facility] Vitamin D (Vitamin D3) 2,000 unit PO DAILY [facility] A/P Narrative A/P Narrative: A: *Severe sepsis: 2/2 multifocal pneumonia. Clinical improvement noted with downtrending white count from 25,000-17,000. *Multifocal PNA, suspected ASpiration: *Acute hypoxic respiratory failure: 2/2 above -down to 2 L oxygen *Complicated UTI: improving *AFib: currently rate controlled. *COPD( L@home)/nocturnal hypoxemia: currently on oxygen with acute decompensation secondary pneumonia. *Restless leg syndrome well-controlled on ropinirole *DJD: hydrocodone *HTN/HLD: statin/metoprolol/ARB *Hypothyroidism: thyroxine Plan: -Antibiotic coverage -Wean oxygen as tolerated -Bronchodilators/pulmonary toilet -Aspiration precautions. Await ST eval -Continue beta-juan/anticoagulation on apixaban -PT OT nutrition support -ppx: home apixaban Limited code no CPR/intubation okay Time Spent With Patient Time: Total time spent is greater than 50% in coordination of care (as documented) at patient's floor/unit and/or counseling patient: QUALITY VTE Deep Vein Thrombosis/Pulmonary Embolism Present on Admission: No
[2020-10-19] MEDS: ACETAMINOPHEN 325 MG TABLET PO PRN (15:30)
[2020-10-19] MEDS: APIXABAN 5 MG TABLET PO SCH (19:52)
[2020-10-19] MEDS: MONTELUKAST 10 MG TABLET PO SCH (19:53)
[2020-10-19] MEDS: MELATONIN 3 MG TABLET PO PRN (19:53)
[2020-10-19] MEDS: SENNOSIDES/DOCUSATE SODIUM 1 TAB TABLET PO SCH (19:55)
[2020-10-20] MEDS: metroNIDAZOLE 500 MG/100 ML BAG IV SCH ×3 (05:30→22:15)
[2020-10-20] MEDS: 0.9 % SODIUM CHLORIDE 10 ML SYRINGE IV SCH ×3 (05:30→22:15)
[2020-10-20 06:58] LABS: Basophils # (Auto) 0.03 K/mcL (0.00-0.20); Basophils % (Auto) 0.2 % (0.0-2.0); Eosinophils # (Auto) 0.01 K/mcL (0.00-0.70); Eosinophils % (Auto) 0.1 % (0.0-7.0); Hematocrit 39.8 % (36.0-48.0); Hemoglobin 12.7 g/dL (12.0-15.0); Lymphocytes # (Auto) 1.44 K/mcL (1.50-4.80); Mean Cell Volume 93.6 fL (80.0-100.0); Mean Corpuscular HGB Conc 31.9 g/dL (31.0-36.0); Monocytes # (Auto) 1.21 K/mcL (0.10-0.90); Monocytes % (Auto) 6.8 % (1.0-12.0); Neutrophils % (Auto) 84.9 % (38.0-78.0); Platelet Count 195 K/mcL (140-440); RBC 4.25 M/mcL (4.00-5.20); Red Cell Distribution Width 12.4 % (11.5-14.5); WBC 17.9 K/mcL (4.5-11.0)
--- NOTE | 2020-10-20 07:11 | Internal Med Progress Note ---
SUBJECTIVE Subjective Patient information: Note initiated : 10/20/20 at 7:06 am Service Date, if different from initiated Date: [] Patient: Charlotte Keller a 85 y/o F admitted on 10/18/20 for shortness of breath. Chief Complaint: [] Interval history: Ms. Keller is a 85 year old F with history of COPD/nocturnal hypoxemia on oxygen/PAF/HTN/RLS and intermittent dysphagia who presents to the ER with 3-day onset of worsening shortness of breath/cough/weakness and generalized malaise. Patient lives with her Remi in [place] and was in her baseline state of health until few days prior presentation. Initial work-up in the ER was consistent with severe sepsis/WBC 25/pyuria/multifocal chest infiltrates consistent with pneumonia. COVID-19 test negative. Patient was started antibiotic coverage after cultures were drawn. Hospitalist service consulted. At the time of evaluation patient is accompanied with her Remi. She was able to answer most the question. She does not seem to apparent distress and feels better. She endorses history as above. She endorsed to choking episode 3 days ago and has noted frequent swallowing difficulty since last 1 year but has been very careful about it. She endorses to degenerative joint disease but no recent change in symptom including dysuria, diarrhea, bloody stool, headache, photophobia, myalgia or neck stiffness. She denies sick contacts or change in medications. 10/19-patient doing well. No overnight events. White count down to 17,000. Hypoxia much improved now on 2 L oxygen. Improved work of breathing and able to talk in full sentences. Stable hemodynamics. Cultures negative so far. Continuing antibiotic coverage. De-escalate based on cultures once available. Continue therapy/ST eval 10/20 Much better today. On room air while awake. Uses 2 L of oxygen at night at home and during the day when she is doing strenuous exercise. Productive cough. Denies shortness of breath at rest. Review of Systems: denies headache/fever/chills/nausea/vomiting/chest or abdominal pain//diarrhea. Otherwise see above. Constitutional Vitals: Vital Signs Temp Pulse Resp BP Pulse Ox 97.8 F 68 20 128/75 95 10/20/20 03:02 10/20/20 03:02 10/20/20 03:02 10/20/20 03:02 10/20/20 03:02 Period Temp Pulse Resp BP Sys/Park Pulse Ox Last 24 Hr 97.8 F-99.0 F 62-83 13-22 99-128/47-75 91-97 Intake and Output 10/19/20 10/20/20 10/20/20 21:59 05:59 13:59 Intake Total 680 200 Output Total 350 Balance 330 200 Weight 64.229 kg Intake & Output: Intake & Output 10/19/20 10/20/20 10/20/20 21:59 05:59 13:59 Intake Total 680 200 Output Total 350 Balance 330 200 Weight 64.229 kg Intake: Nourishment/Supplement quantity 240 (ml) IV 200 Oral 240 200 Output: Void Amount 350 Other: Meal Dinner Percent of Meal Consumed 25% Feeding Ability Independent Nourishment/Supplement name ensure Urine Appearance Clear Urine Color Bright Yellow # Voids 1 Exam: General: Alert, Awake, No acute Distress Eyes/N/T: EOMI, Head/Neck: neck supple, CV: RRR, No murmurs, Pulm: Right side rhonchi, left clear. No wheezing Abd: soft, nontender, +BS x4 Ext: no clubbing/cyanosis/edema Neuro: Alert, no focal deficits, moves all extremities, Skin: warm/dry OBJ DATA Labs CBC & Chem 7: 10/20/20 05:08 10/20/20 05:08 Labs: Abnormal Lab Results 10/20/20 10/19/20 10/19/20 05:08 04:21 04:21 WBC 17.9 H 17.9 H MPV 11.0 H 10.9 H Neut % (Auto) 84.9 H 91.6 H Lymph % (Auto) 8.0 L 5.8 L Lymph # (Auto) 1.44 L 1.04 L [place] # (Auto) 1.21 H Absolute Neutrophils 15.21 H 16.37 H PT Glucose 156 H Phosphorus 2.1 L Total Bilirubin Lactate Dehydrogenase 123 L NT-Pro-B Natriuret Pep Total Protein 5.6 L Globulin Procalcitonin Urine Ketones Urine Nitrate Ur Leukocyte Esterase Urine WBC Urine Bacteria Hyaline Casts Urine Mucus 10/18/20 10/18/20 10/18/20 12:10 09:35 09:35 WBC MPV Neut % (Auto) Lymph % (Auto) Lymph # (Auto) [place] # (Auto) Absolute Neutrophils PT 14.7 H Glucose Phosphorus Total Bilirubin Lactate Dehydrogenase NT-Pro-B Natriuret Pep Total Protein Globulin Procalcitonin 1.48 H Urine Ketones 5 A Urine Nitrate Pos A Ur Leukocyte Esterase 75 A Urine WBC 36 H Urine Bacteria Few A Hyaline Casts 4 H Urine Mucus Few A 10/18/20 10/18/20 09:35 09:35 WBC 25.1 H MPV 10.5 H Neut % (Auto) 87.9 H Lymph % (Auto) 6.1 L Lymph # (Auto) [place] # (Auto) 1.45 H Absolute Neutrophils 22.04 H PT Glucose 138 H Phosphorus Total Bilirubin 1.1 H Lactate Dehydrogenase NT-Pro-B Natriuret Pep 1606.0 H Total Protein 5.8 L Globulin 2.1 L Procalcitonin Urine Ketones Urine Nitrate Ur Leukocyte Esterase Urine WBC Urine Bacteria Hyaline Casts Urine Mucus Meds: Medications Acetaminophen (Tylenol) 650 mg PO Q4-6HP PRN; Protocol PRN Reason: Per Pain Protocol/Fever > 101 Last Admin: 10/19/20 15:30 Dose: 650 mg Documented by: Hydrocodone Bitart/Acetaminophen ([place] 7.5/325mg) 1 tab PO Q6HP PRN; Protocol PRN Reason: pain, moderate Last Admin: 10/19/20 17:57 Dose: 1 tab Documented by: Albuterol Sulfate (Ventolin) 2 puff INH QIDP PRN PRN Reason: Shortness Of Breath Albuterol/Ipratropium (Duoneb) 3 ml NEB Q4HP PRN PRN Reason: Shortness Of Breath Apixaban (Eliquis) 2.5 mg PO [facility] Last Admin: 10/19/20 19:52 Dose: 2.5 mg Documented by: Ascorbic Acid (Vitamin C) 500 mg PO QDAY [facility] Bisacodyl (Dulcolax) 10 mg [place] Q2-3DAYS PRN PRN Reason: Constipation Clotrimazole (Mycelex) 10 mg PO DAILY [facility] Docusate Sodium (Colace) 100 mg PO BID [facility] Last Admin: 10/19/20 19:53 Dose: Not Given Documented by: Guaifenesin/Codeine Phosphate (Robitussin Ac) 10 ml PO Q4HP PRN PRN Reason: Cough Azithromycin 500 mg/ Dextrose 250 mls @ 250 mls/hr IV Q24H [facility]; Protocol Stop: 10/21/20 10:59 Ceftriaxone Sodium 2 gm/ (Dextrose) 50 mls @ 100 mls/hr IV Q24H [facility]; Protocol Magnesium Sulfate (Magnesium Sulfate) 2 gm in 50 mls @ 50 mls/hr IV UD PRN PRN Reason: MG = or < 1.7 Potassium Chloride 40 meq/ (Dextrose) 520 mls @ 130 mls/hr IV UD PRN PRN Reason: K+ = or < 3.5 Acetaminophen (Ofirmev) 650 mg in 65 mls @ 130 mls/hr IV Q6HP PRN; Protocol PRN Reason: Per Pain Protocol/Fever > 101 Metronidazole (Flagyl) 500 mg in 100 mls @ 100 mls/hr IV Q8H [facility]; Protocol Last Admin: 10/20/20 05:30 Dose: 50 mls/hr Documented by: Iron Carb/Multivit/[place]/Folic Acid (Multivitamin W/Minerals) 1 tab PO DAILY [facility] Levothyroxine Sodium (Synthroid) 100 mcg PO QAMAC [facility] Losartan Potassium (Cozaar) 50 mg PO DAILY [facility] Melatonin (Melatonin 3mg Tablet) 3 mg PO HSP PRN PRN Reason: Insomnia Last Admin: 10/19/20 19:53 Dose: 3 mg Documented by: Metoprolol Tartrate (Lopressor) 50 mg PO BID [facility] Last Admin: 10/19/20 19:53 Dose: 50 mg Documented by: Montelukast Sodium (Singular) 10 mg PO QHS [facility] Last Admin: 10/19/20 19:53 Dose: 10 mg Documented by: Ondansetron HCl (Zofran Odt) 4 mg SL Q4-6HP PRN; Protocol PRN Reason: Nausea And Vomiting Ondansetron HCl (Zofran) 4 mg IV Q4-6HP PRN; Protocol PRN Reason: Nausea And Vomiting Fluticasone Furoate- Vilanterol [Breo Ellipta] Inhaler 1 dose INH Q24H [facility] Last Admin: 10/19/20 10:40 Dose: 1 dose Documented by: Polyethylene Glycol (Miralax) 17 gm PO DAILYP PRN PRN Reason: Constipation Potassium Chloride (Klor-Con) 40 meq PO DAILYP PRN PRN Reason: K+ < 3.5 Ropinirole HCl (Requip) 1 mg PO BIDP PRN PRN Reason: Muscle Spasm Last Admin: 10/20/20 00:03 Dose: 1 mg Documented by: Senna/Docusate Sodium (Senna Plus Tablet) 1 tab PO HS [facility] Last Admin: 10/19/20 19:55 Dose: Not Given Documented by: Sodium Chloride (Saline Flush) 10 ml IV Q8 [facility] Last Admin: 10/20/20 05:30 Dose: 10 ml Documented by: Vitamin D (Vitamin D3) 2,000 unit PO DAILY [facility] A/P Narrative A/P Narrative: A: *Severe sepsis: 2/2 multifocal pneumonia. *Multifocal Haemophilus influenza PNA, possible Aspiration component: *Oropharyngeal Dysphagia, mild: *Acute hypoxic respiratory failure: 2/2 above -now on room air *Complicated UTI: improving *AFib: currently rate controlled. *COPD(home O2 is 2L@night or day with exercise)/nocturnal hypoxemia: *Restless leg syndrome well-controlled on ropinirole *DJD: hydrocodone *HTN/HLD: statin/metoprolol/ARB *Hypothyroidism: thyroxine Plan: -Antibiotic coverage -supp oxygen as tolerated -Bronchodilators/pulmonary toilet -Aspiration precautions. diet per ST -Continue beta-juan/ARB(decrease) -PT OT nutrition support -ppx: home apixaban Limited code no CPR/intubation okay Time Spent With Patient Time: Total time spent is greater than 50% in coordination of care (as documente d) at patient's floor/unit and/or counseling patient: QUALITY VTE Deep Vein Thrombosis/Pulmonary Embolism Present on Admission: No
[2020-10-20] MEDS: LEVOTHYROXINE 100 MCG TABLET PO SCH (07:31)
[2020-10-20 07:34] LABS: ALT/SGPT 17 U/L (<40); AST/SGOT 14 U/L (<32); Albumin 3.1 gm/dL (3.2-5.2); Albumin/Globulin Ratio 1.5 (1.0-2.3); Alkaline Phosphatase 58 U/L (39-117); Bilirubin,Direct < 0.2 mg/dL (<0.3); Bilirubin,Total 0.3 mg/dL (0.1-1.0); Blood Urea Nitrogen 22 mg/dL (8-23); Calcium 9.2 mg/dL (8.6-10.4); Carbon Dioxide 25 mmol/L (22-30); Chloride 106 mmol/L (96-108); Globulin 2.1 gm/dL (2.2-3.7); Glomerular Filtration Rate 79; Glucose 122 mg/dL (70-105); Lactate Dehydrogenase 168 U/L (135-225); Phosphorous 1.8 mg/dL (2.5-4.5); Triglycerides 47 mg/dL (<150); Uric Acid 4.1 mg/dL (2.5-8.0)
[2020-10-20] MEDS: HYDROCODONE/APAP 7.5/325MG TABLET PO PRN ×2 (07:46→18:11)
[2020-10-20] MEDS ORDERED: PHOSPHORUS 250 MG TABLET PO ONE (08:10)
[2020-10-20 08:18] LABS: Lymphocytes % 8 % (15-49); Monocytes % (Manual) 6 % (1-12); Platelet Estimate NORMAL (Normal); RBC Morphology NORMAL (Normal); Segmented Neutrophils % 86 % (38-78)
--- NOTE | 2020-10-20 08:53 | XRay Report ---
HISTORY: Short of breath, follow-up infiltrates FINDINGS: Patient has mild emphysema. Superimposed upon this there are mild ill-defined infiltrates in the lung bases, right greater than left. There has been mild improvement of the bilateral infiltrates since the prior x-ray done on 10/18/20. No adenopathy is detected. There is no pleural effusion. The heart size is normal. 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 Densely calcified plaque is seen in the left common carotid artery. IMPRESSION: Improving mild pneumonia, predominantly involving the right lower lobe, superimposed upon underlying emphysema Interpreted and Authenticated by: Jevon Avila 10/20/20
[2020-10-20] MEDS ORDERED: LOSARTAN 50 MG TABLET PO SCH (09:00)
--- NOTE | 2020-10-20 09:07 | Discharge Summary ---
Discharge Provider Provider Patient information: Note initiated : 10/20/20 at 9:06 am Service Date, if different from initiated Date: [] Patient: Charlotte Keller 85 y/o F admitted on 10/18/20 for shortness of breath. Chief Complaint: [] Date of admission: 10/18/20 12:40 Discharge date: 10/21/20 Primary care physician: Iván Case MD Consults: 10/18/20 11:43 Consult to Physician [CONS] Stat Comment: Consulting Provider: Bipin Triana Reason For Exam: Physician to Consult Discharge Meds Discharge Medications Home Medications ascorbic acid (vitamin C) 500 mg tablet 500 mg PO QDAY 06/27/17 [History Confirmed 10/18/20 Last Taken 10/03/18] cholecalciferol (vitamin D3) 25 mcg (1,000 unit) capsule 2,000 unit PO QDAY cap 07/25/18 [History Confirmed 10/18/20 Last Taken 10/03/18] nebulizers 10/04/18 [History Confirmed 10/18/20 Last Taken Unknown] ropinirole 1 mg tablet 1 mg PO BIDP PRN #90 tab 12/02/19 [Rx Confirmed 10/18/20 Last Taken Unknown] albuterol sulfate 90 mcg/actuation aerosol inhaler 2 puff INHALATION QID #18 g 03/23/20 [Rx Confirmed 10/18/20 Last Taken Unknown] fluticasone furoate 200 mcg-vilanterol 25 mcg/dose inhalation powder 1 inh INHALATION Q24H #60 each 04/20/20 [Rx Confirmed 10/18/20 Last Taken Unknown] clotrimazole 10 mg silvestre 10 mg PO DAILY tab 06/09/20 [History Confirmed 10/18/20 Last Taken Unknown] montelukast 10 mg tablet 10 mg PO QHS tab 08/11/20 [History Confirmed 10/18/20 Last Taken Unknown] hydrocodone 7.5 mg-acetaminophen 325 mg tablet 1 tab PO BID PRN 30 Days #60 tab 09/23/20 [Rx Confirmed 10/18/20 Last Taken 10/18/20 08:00] losartan 50 mg PO DAILY 10/18/20 [History Confirmed 10/18/20 Last Taken 10/18/20 08:00] metoprolol tartrate 50 mg PO BID 10/18/20 [History Confirmed 10/18/20 Last Taken 10/18/20 08:00] omega 2-xgz-giu-fish oil [Fish Oil] 1 cap PO QDAY 10/18/20 [History Confirmed 10/18/20 Last Taken Unknown] levothyroxine 100 mcg tablet 100 mcg PO QDAY #90 tab 10/19/20 [Rx Last Taken Unknown] Lactobacillus rhamnosus GG [Culturelle] 1 cap PO BID #20 cap 10/20/20 [Rx Last Taken Unknown] amoxicillin-pot clavulanate [Augmentin] 1 tab PO BID #5 tab 10/20/20 [Rx Last Taken Unknown] COURSE Hospital Course Hospital course: interval history: Ms. Keller is a 85 year old F with history of COPD/nocturnal hypoxemia on oxygen/PAF/HTN/RLS and intermittent dysphagia who presents to the ER with 3-day onset of worsening shortness of breath/cough/weakness and generalized malaise. Patient lives with her Remi in [place] and was in her baseline state of health until few days prior presentation. Initial work-up in the ER was consistent with severe sepsis/WBC 25/pyuria/multifocal chest infiltrates consistent with pneumonia. COVID-19 test negative. Patient was started antibiotic coverage after cultures were drawn. Hospitalist service consulted. At the time of evaluation patient is accompanied with her Remi. She was able to answer most the question. She does not seem to apparent distress and feels better. She endorses history as above. She endorsed to choking episode 3 days ago and has noted frequent swallowing difficulty since last 1 year but has been very careful about it. She endorses to degenerative joint disease but no recent change in symptom including dysuria, diarrhea, bloody stool, headache, photophobia, myalgia or neck stiffness. She denies sick contacts or change in medications. 10/19-patient doing well. No overnight events. White count down to 17,000. Hypoxia much improved now on 2 L oxygen. Improved work of breathing and able to talk in full sentences. Stable hemodynamics. Cultures negative so far. Continuing antibiotic coverage. De-escalate based on cultures once available. Continue therapy/ST eval 10/20 Much better today. On room air while awake. Uses 2 L of oxygen at night at home and during the day when she is doing strenuous exercise. Productive cough. Denies shortness of breath at rest. 10/21 Doing well. On room air. Stable for discharge. A: *Severe sepsis: 2/2 multifocal pneumonia. *Multifocal Haemophilus influenza PNA, possible Aspiration component: *Oropharyngeal Dysphagia, mild: *Acute hypoxic respiratory failure: 2/2 above -now on room air *Complicated UTI: improving *AFib: currently rate controlled. *COPD(home O2 is 2L@night or day with exercise)/nocturnal hypoxemia: *Restless leg syndrome well-controlled on ropinirole *DJD: hydrocodone *HTN/HLD: statin/metoprolol/ARB *Hypothyroidism: thyroxine Discharge diagnosis: Sepsis Haemophilus influenza pneumonia, dysphagia acute hypoxic respite mandy Secondary discharge diagnosis: Complete UTI H fibrillation COPD hypertension hypothyroidism Time Spent with Patient Time attestation: Total time spent providing and/or coordinating discharge services: Time spent: Greater than 30 minutes EXAM Constitutional Vitals: Temp Pulse Resp BP Pulse Ox 97.9 F 61 20 132/74 96 10/20/20 07:12 10/20/20 07:30 10/20/20 07:30 10/20/20 07:12 10/20/20 07:30 Discharge Data Data Completed and Pending Labs on day of discharge: Labs from last 24 hours 10/20/20 10/20/20 10/20/20 05:08 05:08 05:08 WBC 17.9 H RBC 4.25 Hgb 12.7 Hct 39.8 MCV 93.6 MCH 29.9 MCHC 31.9 RDW 12.4 Plt Count 195 MPV 11.0 H Neut % (Auto) 84.9 H Lymph % (Auto) 8.0 L Garrett % (Auto) 6.8 Eos % (Auto) 0.1 Baso % (Auto) 0.2 Lymph # (Auto) 1.44 L Garrett # (Auto) 1.21 H Eos # (Auto) 0.01 Baso # (Auto) 0.03 Seg Neutrophils % 86 H Lymphocytes % 8 L Monocytes % (Manual) 6 Absolute Neutrophils 15.21 H Platelet Estimate Normal RBC Morphology Normal Sodium Potassium Chloride Carbon Dioxide Anion Gap BUN Creatinine GFR Calculation Glucose Uric Acid Calcium Phosphorus Magnesium Total Bilirubin Direct Bilirubin GGT AST ALT Alkaline Phosphatase Lactate Dehydrogenase Total Protein Albumin Globulin Albumin/Globulin Ratio Triglycerides Procalcitonin 0.64 H 10/20/20 05:08 WBC RBC Hgb Hct MCV MCH MCHC RDW Plt Count MPV Neut % (Auto) Lymph % (Auto) Garrett % (Auto) Eos % (Auto) Baso % (Auto) Lymph # (Auto) Garrett # (Auto) Eos # (Auto) Baso # (Auto) Seg Neutrophils % Lymphocytes % Monocytes % (Manual) Absolute Neutrophils Platelet Estimate RBC Morphology Sodium 140 Potassium 4.2 Chloride 106 Carbon Dioxide 25 Anion Gap 9.0 BUN 22 Creatinine 0.7 GFR Calculation 79 Glucose 122 H Uric Acid 4.1 Calcium 9.2 Phosphorus 1.8 L Magnesium 2.0 Total Bilirubin 0.3 Direct Bilirubin < 0.2 GGT 24 AST 14 ALT 17 Alkaline Phosphatase 58 Lactate Dehydrogenase 168 Total Protein 5.2 L Albumin 3.1 L Globulin 2.1 L Albumin/Globulin Ratio 1.5 Triglycerides 47 Procalcitonin Preliminary micro results at discharge 10/18/20 12:10 Urine Culture - Preliminary Urine - Clean Void Mid-Stream 10/18/20 09:42 Blood Culture - Preliminary Blood 10/18/20 09:35 Blood Culture - Preliminary Blood Discharge Plan Patient/Caregiver Discharge Instructions Activity: increase activity as tolerated Diet: Regular Diet Prescriptions: New Culturelle 10 billion cell capsule 1 cap PO BID Qty: 20 RF: 0 amoxicillin-pot clavulanate [Augmentin] 875-125 mg tablet 1 tab PO BID Qty: 5 RF: 0 Continued ropinirole 1 mg tablet 1 mg PO BIDP PRN (Reason: Muscle Spasm) Qty: 90 RF: 3 albuterol sulfate 90 mcg/actuation HFA aerosol inhaler 2 puff INHALATION QID Qty: 18 RF: 4 hydrocodone-acetaminophen 7.5-325 mg tablet 1 tab PO BID PRN (Reason: pain, moderate) 30 Days Qty: 60 RF: 0 levothyroxine [Synthroid] 100 mcg tablet 100 mcg PO QDAY Qty: 90 RF: 1 clotrimazole 10 mg silvestre 10 mg PO DAILY RF: 0 montelukast 10 mg tablet 10 mg PO QHS RF: 0 apixaban [Eliquis] 2.5 mg tablet 2.5 mg PO HS RF: 0 cholecalciferol (vitamin D3) 1,000 unit capsule 2,000 unit PO QDAY RF: 0 ascorbic acid (vitamin C) 500 mg tablet 500 mg PO QDAY RF: 0 Breo Ellipta 200-25 mcg/dose blister with device 1 inh INHALATION Q24H Qty: 60 RF: 5 (DME) nebulizers 1 EACH misc 1 each INH CONT RF: 0 losartan 50 mg tablet 50 mg PO DAILY RF: 0 metoprolol tartrate 50 mg tablet 50 mg PO BID RF: 0 omega 0-vnl-rys-fish oil [Fish Oil] 1,000 mg (120 mg-180 mg) Capsule 1 cap PO QDAY RF: 0 Follow Up Plan Follow up with: Iván Case MD [Primary Care Provider] - Patient Disposition: Home Health Service Prognosis: Fair Overall status at discharge: patient is progressing back to baseline Discharge Orders: Discharge Order (Routine); Ordered 10/21/20 Ordered By: Leoncio Martinez [facility] Deep Vein Thrombosis/Pulmonary Embolism Present on Admission: No
[2020-10-20] MEDS: LOSARTAN 50 MG TABLET PO SCH (09:58)
[2020-10-20] MEDS: CLOTRIMAZOLE 10 MG TROCHE PO SCH (09:59)
[2020-10-20] MEDS: MULTIVIT,THER IRON,CA,FA & MIN 1 TABLET PO SCH (09:59)
[2020-10-20] MEDS: ASCORBIC ACID 500 MG TABLET PO SCH (09:59)
[2020-10-20] MEDS: METOPROLOL TARTRATE 50 MG TABLET PO SCH ×2 (09:59→19:29)
[2020-10-20] MEDS: VITAMIN D3 1,000 UNIT TABLET PO SCH (09:59)
[2020-10-20] MEDS: DOCUSATE SODIUM 100 MG CAPSULE PO SCH (10:00)
[2020-10-20] MEDS: cefTRIAXone 2 GM in DEXTROSE 5% IN WATER 50 ML IV SCH (10:00)
[2020-10-20] MEDS: Fluticasone Furoate-Vilanterol [Breo Ellipta] Inhaler INH SCH (10:00)
[2020-10-20] MEDS ORDERED: AZITHROMYCIN 500 MG in DEXTROSE 5% IN WATER 250 ML IV SCH (10:00)
[2020-10-20] MEDS: MELATONIN 3 MG TABLET PO PRN (19:29)
[2020-10-20] MEDS: LACTOBACILLUS 1 CAPSULE PO SCH (19:29)
[2020-10-20] MEDS: MONTELUKAST 10 MG TABLET PO SCH (19:29)
[2020-10-20] MEDS: APIXABAN 5 MG TABLET PO SCH (19:30)
[2020-10-20] MEDS: SENNOSIDES/DOCUSATE SODIUM 1 TAB TABLET PO SCH (19:30)
[2020-10-21] MEDS: HYDROCODONE/APAP 7.5/325MG TABLET PO PRN (02:31)
[2020-10-21] MEDS: metroNIDAZOLE 500 MG/100 ML BAG IV SCH (04:53)
[2020-10-21] MEDS: 0.9 % SODIUM CHLORIDE 10 ML SYRINGE IV SCH (05:37)
[2020-10-21 06:35] LABS: Basophils # (Auto) 0.03 K/mcL (0.00-0.20); Basophils % (Auto) 0.3 % (0.0-2.0); Eosinophils # (Auto) 0.28 K/mcL (0.00-0.70); Eosinophils % (Auto) 2.5 % (0.0-7.0); Hematocrit 39.5 % (36.0-48.0); Hemoglobin 12.6 g/dL (12.0-15.0); Lymphocytes # (Auto) 1.72 K/mcL (1.50-4.80); Lymphocytes % (Auto) 15.1 % (15.0-49.0); Mean Cell Volume 93.2 fL (80.0-100.0); Mean Corpuscular HGB Conc 31.9 g/dL (31.0-36.0); Mean Platelet Volume 10.8 fL (7.4-10.4); Monocytes # (Auto) 0.98 K/mcL (0.10-0.90); Monocytes % (Auto) 8.6 % (1.0-12.0); Neutrophils % (Auto) 73.5 % (38.0-78.0); Platelet Count 204 K/mcL (140-440); RBC 4.24 M/mcL (4.00-5.20); Red Cell Distribution Width 12.4 % (11.5-14.5); WBC 11.4 K/mcL (4.5-11.0)
[2020-10-21] MEDS: LEVOTHYROXINE 100 MCG TABLET PO SCH (07:03)
[2020-10-21] MEDS: ACETAMINOPHEN 325 MG TABLET PO PRN (07:43)
[2020-10-21] MEDS: LOSARTAN 50 MG TABLET PO SCH (08:32)
[2020-10-21] MEDS: VITAMIN D3 1,000 UNIT TABLET PO SCH (08:32)
[2020-10-21] MEDS: LACTOBACILLUS 1 CAPSULE PO SCH (08:32)
[2020-10-21] MEDS: ASCORBIC ACID 500 MG TABLET PO SCH (08:32)
[2020-10-21] MEDS: CLOTRIMAZOLE 10 MG TROCHE PO SCH (08:32)
[2020-10-21] MEDS: Fluticasone Furoate-Vilanterol [Breo Ellipta] Inhaler INH SCH (08:33)
[2020-10-21] MEDS: MULTIVIT,THER IRON,CA,FA & MIN 1 TABLET PO SCH (08:33)
[2020-10-21] MEDS: cefTRIAXone 2 GM in DEXTROSE 5% IN WATER 50 ML IV SCH (08:33)
[2020-10-21] MEDS: METOPROLOL TARTRATE 50 MG TABLET PO SCH (08:33)
[2020-10-22 19:32] LABS: Legionella pneumophilia Ag, Ur NOT DETECTED
== END 2020-10-21 11:56 | disposition home health service (06) | DRG 871 ==
LOC: ED 08:58 → ICU 12:40 → MEDSUR 10-19 18:40
PROVIDERS: ADMIT Internal Medicine; ATTEND Internal Medicine

== ENCOUNTER 2023-10-18 12:19 | Observation (INO) ==
[2023-10-18] MEDS ORDERED: IOPAMIDOL 100 ML BOTTLE IV ONE (12:20)
[2023-10-18 12:55] LABS: Basophils # (Auto) 0.04 K/mcL (0.00-0.30); Basophils % (Auto) 0.2 % (0.0-2.0); Eosinophils # (Auto) 0.09 K/mcL (0.00-0.70); Eosinophils % (Auto) 0.5 % (0.0-7.0); Hematocrit 48.9 % (34.1-44.9); Hemoglobin 15.1 g/dL (11.2-15.7); Lymphocytes # (Auto) 1.58 K/mcL (1.50-4.80); Lymphocytes % (Auto) 8.2 % (15.5-49.0); Mean Cell Volume 97.4 fL (80.0-100.0); Mean Corpuscular HGB Conc 30.9 g/dL (31.0-36.0); Mean Platelet Volume 9.9 fL (8.8-12.5); Monocytes # (Auto) 0.84 K/mcL (0.10-0.90); Monocytes % (Auto) 4.4 % (1.0-12.0); Neutrophils % (Auto) 84.4 % (38.0-78.0); Platelet Count 266 K/mcL (140-440); RBC 5.02 M/mcL (3.59-5.38); Red Cell Distribution Width 12.8 % (11.5-14.5); WBC 19.2 K/mcL (4.5-11.0)
[2023-10-18] MEDS ORDERED: METOPROLOL TARTRATE 5 MG/5 ML VIAL IV SCH (13:00)
[2023-10-18] MEDS ORDERED: 0.9 % SODIUM CHLORIDE 500 ML IV ONE ×2 (13:03→19:00)
[2023-10-18 13:28] LABS: Blood Urea Nitrogen 17 mg/dL (8-23); Calcium 9.5 mg/dL (8.6-10.4); Carbon Dioxide 29 mmol/L (22-30); Chloride 104 mmol/L (96-108); Glomerular Filtration Rate 66; Glucose 99 mg/dL (70-105)
[2023-10-18] MEDS ORDERED: cefTRIAXone 2 GM in DEXTROSE 5% IN WATER 50 ML IV ONE (13:56)
[2023-10-18] MEDS ORDERED: AZITHROMYCIN 250 MG TABLET PO ONE (13:56)
[2023-10-18] MEDS ORDERED: MIDAZOLAM 2 MG/2 ML VIAL IV ONE (15:00)
[2023-10-18 15:16] LABS: Appearance,Urine Clear (Clear); Bilirubin,Urine Negative (Negative); Color,Urine Yellow; Culture Indicated,Urine No; Glucose,Urine (UA) Negative (Negative); Ketones,Urine Negative (Negative); Leukocyte Esterase,Urine Negative /uL (Negative); Nitrate,Urine Negative (Negative); Protein,Urine Negative (Negative); Specific Gravity,Urine >= 1.030 (1.000-1.035); Urine Blood Negative ery/mcL (Negative); Urobilinogen,Urine Normal
[2023-10-18] MEDS ORDERED: METOPROLOL TARTRATE 50 MG TABLET PO ONE (15:32)
[2023-10-18 20:26] LABS: Band Neutrophils % 2 % (0-10); Lymphocytes % 10 % (15-49); Monocytes % (Manual) 2 % (1-12); Platelet Estimate NORMAL (Normal); RBC Morphology NORMAL (Normal); Reactive Lymphocytes 3 % (0-2); Segmented Neutrophils % 83 % (38-78)
[2023-10-18] MEDS ORDERED: HYDROcodone/APAP (PP) 7.5/325MG TABLET (#4) PO PRN (20:29)
[2023-10-18] MEDS ORDERED: NON FORMULARY MEDICATION 1 DOSE MISCELL (Fluticasone Furoate-Vilanterol [Breo Ellipta] 200 INH SCH (20:30)
[2023-10-18] MEDS ORDERED: rOPINIRole 1 MG TABLET PO PRN (20:36)
[2023-10-18] MEDS: HYDROCODONE/APAP 7.5/325MG TABLET PO PRN (20:55)
[2023-10-18] MEDS ORDERED: MONTELUKAST 10 MG TABLET PO SCH (21:00)
[2023-10-18] MEDS ORDERED: GABAPENTIN 100 MG CAPSULE PO SCH (21:00)
[2023-10-18] MEDS ORDERED: rOPINIRole 1 MG TABLET PO SCH (21:00)
[2023-10-18] MEDS ORDERED: ONDANSETRON 4 MG/2 ML VIAL IV PRN (21:36)
[2023-10-18] MEDS ORDERED: POLYETHYLENE GLYCOL 3350 17 GM PACKET PO PRN (21:36)
[2023-10-18] MEDS ORDERED: IPRATROPIUM/ALBUTEROL 3 ML AMPUL.NEB NEB PRN (21:36)
[2023-10-18] MEDS ORDERED: POTASSIUM CHLORIDE 40 MEQ in DEXTROSE 5% IN WATER 500 ML IV PRN (21:36)
[2023-10-18] MEDS ORDERED: MAGNESIUM SULFATE 2 GM/50 ML BAG IV PRN (21:36)
[2023-10-18] MEDS ORDERED: POTASSIUM CHLORIDE 20 MEQ TABLET PO PRN ×2 (21:36)
[2023-10-18] MEDS ORDERED: ACETAMINOPHEN 325 MG TABLET PO PRN (21:36)
[2023-10-18] MEDS ORDERED: DILTIAZEM 125 MG in DEXTROSE 5% IN WATER 100 ML IV PRN (21:36)
[2023-10-18] MEDS ORDERED: METOPROLOL TARTRATE 5 MG/5 ML VIAL IV PRN (21:36)
[2023-10-18] MEDS ORDERED: SENNOSIDES 1 TABLET PO PRN (21:36)
[2023-10-18] MEDS: DOCUSATE SODIUM 100 MG CAPSULE PO SCH (22:07)
[2023-10-18] MEDS: METOPROLOL TARTRATE 50 MG TABLET PO SCH (22:19)
[2023-10-19] MEDS ORDERED: LEVOTHYROXINE SODIUM 112 MCG TABLET PO SCH (07:30)
[2023-10-19 07:32] LABS: ALT/SGPT 108 U/L (<40); AST/SGOT 57 U/L (<32); Albumin 3.5 gm/dL (3.2-5.2); Albumin/Globulin Ratio 1.9 (1.0-2.3); Alkaline Phosphatase 40 U/L (39-117); Bilirubin,Direct < 0.2 mg/dL (0-0.3); Bilirubin,Total 0.6 mg/dL (0.1-1.0); Blood Urea Nitrogen 16 mg/dL (8-23); Calcium 8.9 mg/dL (8.6-10.4); Carbon Dioxide 31 mmol/L (22-30); Chloride 104 mmol/L (96-108); Globulin 1.8 gm/dL (2.2-3.7); Glomerular Filtration Rate 77; Glucose 88 mg/dL (70-105); Lactate Dehydrogenase 215 U/L (135-225); Phosphorous 2.9 mg/dL (2.5-4.5); Triglycerides 160 mg/dL (<150); Uric Acid 3.3 mg/dL (2.5-8.0)
[2023-10-19] MEDS: DOCUSATE SODIUM 100 MG CAPSULE PO SCH (07:43)
[2023-10-19] MEDS ORDERED: DILTIAZEM 125 MG in DEXTROSE 5% IN WATER 100 ML IV PRN (07:45)
[2023-10-19 08:04] LABS: Basophils # (Auto) 0.03 K/mcL (0.00-0.30); Basophils % (Auto) 0.3 % (0.0-2.0); Eosinophils # (Auto) 0.25 K/mcL (0.00-0.70); Eosinophils % (Auto) 2.3 % (0.0-7.0); Hematocrit 41.6 % (34.1-44.9); Hemoglobin 12.7 g/dL (11.2-15.7); Lymphocytes # (Auto) 1.98 K/mcL (1.50-4.80); Lymphocytes % (Auto) 18.1 % (15.5-49.0); Mean Cell Volume 99.8 fL (80.0-100.0); Mean Corpuscular HGB Conc 30.5 g/dL (31.0-36.0); Mean Platelet Volume 9.9 fL (8.8-12.5); Monocytes # (Auto) 0.81 K/mcL (0.10-0.90); Monocytes % (Auto) 7.4 % (1.0-12.0); Neutrophils % (Auto) 69.9 % (38.0-78.0); Platelet Count 214 K/mcL (140-440); RBC 4.17 M/mcL (3.59-5.38)
[2023-10-19] MEDS: METOPROLOL TARTRATE 50 MG TABLET PO SCH (08:13)
[2023-10-19] MEDS: HYDROCODONE/APAP 7.5/325MG TABLET PO PRN (08:52)
[2023-10-19] MEDS ORDERED: LOSARTAN 50 MG TABLET PO SCH (09:00)
[2023-10-19] MEDS ORDERED: APIXABAN 2.5 MG TABLET PO SCH (09:00)
[2023-10-19] MEDS ORDERED: FLUTICASONE FUROATE VILANTEROL INH SCH (09:00)
[2023-10-19] MEDS ORDERED: predniSONE 5 MG TABLET PO SCH (12:00)
[2023-10-19 12:53] LABS: Band Neutrophils % 2 % (0-10); Lymphocytes % 18 % (15-49); Monocytes % (Manual) 6 % (1-12); Platelet Estimate NORMAL (Normal); RBC Morphology NORMAL (Normal); Reactive Lymphocytes 4 % (0-2); Segmented Neutrophils % 70 % (38-78)
== END 2023-10-19 13:55 | disposition home or self-care (01) ==
LOC: ED 12:19 → ICU 21:32 → INTOOBSV 21:32
PROVIDERS: ADMIT Internal Medicine; ATTEND Internal Medicine

== ENCOUNTER 2024-04-23 09:19 | Inpatient (IN) ==
[2024-04-23] MEDS: IPRATROPIUM/ALBUTEROL 3 ML AMPUL.NEB NEB ONE (10:20)
[2024-04-23 10:46] LABS: ALT/SGPT 26 U/L (<40); AST/SGOT 26 U/L (<32); Albumin/Globulin Ratio 1.7 (1.0-2.3); Alkaline Phosphatase 60 U/L (39-117); Bilirubin,Total 0.5 mg/dL (0.1-1.0); Blood Urea Nitrogen 18 mg/dL (8-23); Calcium 9.9 mg/dL (8.6-10.4); Carbon Dioxide 30 mmol/L (22-30); Chloride 101 mmol/L (96-108); Globulin 2.3 gm/dL (2.2-3.7); Glomerular Filtration Rate 81; Glucose 163 mg/dL (70-105); Potassium 3.4 mmol/L (3.3-5.1); Sodium 142 mmol/L (133-145)
[2024-04-23 10:50] LABS: Basophils # (Auto) 0.05 K/mcL (0.00-0.30); Basophils % (Auto) 0.3 % (0.0-2.0); Eosinophils # (Auto) 0.51 K/mcL (0.00-0.70); Eosinophils % (Auto) 2.9 % (0.0-7.0); Hematocrit 48.3 % (34.1-44.9); Hemoglobin 15.3 g/dL (11.2-15.7); Lymphocytes # (Auto) 1.23 K/mcL (1.50-4.80); Lymphocytes % (Auto) 7.1 % (15.5-49.0); Mean Corpuscular HGB Conc 31.7 g/dL (31.0-36.0); Mean Platelet Volume 10.3 fL (8.8-12.5); Monocytes # (Auto) 1.17 K/mcL (0.10-0.90); Monocytes % (Auto) 6.7 % (1.0-12.0); Neutrophils % (Auto) 81.6 % (38.0-78.0); Platelet Count 231 K/mcL (140-440); RBC 4.93 M/mcL (3.59-5.38); Red Cell Distribution Width 12.2 % (11.5-14.5); WBC 17.4 K/mcL (4.5-11.0)
[2024-04-23] MEDS: cefTRIAXone 1 GM VIAL IV ONE (11:57)
[2024-04-23] MEDS: ALBUTEROL SULFATE 2.5 MG/3 ML NEBULIZER NEB ONE (12:30)
[2024-04-23] MEDS: AZITHROMYCIN 250 MG TABLET PO ONE (12:34)
[2024-04-23] MEDS: methylPREDNISolone SOD SUCC 125 MG/2 ML VIAL IV ONE (12:49)
[2024-04-23] MEDS: HYDROcodone/APAP 5/325MG TABLET PO ONE (14:14)
[2024-04-23 14:18] LABS: Appearance,Urine Clear (Clear); Bilirubin,Urine Negative (Negative); Color,Urine NO COLOR; Culture Indicated,Urine No; Glucose,Urine (UA) Negative (Negative); Ketones,Urine Negative (Negative); Leukocyte Esterase,Urine Negative /uL (Negative); Nitrate,Urine Negative (Negative); Protein,Urine Negative (Negative); Specific Gravity,Urine 1.015 (1.000-1.035); Urine Blood Trace-intact ery/mcL (Negative); Urine RBC 0 /hpf (0-3); Urine Squamous Epithelial Cell 0 /hpf (0-4); Urine WBC 0 /hpf (0-4); Urobilinogen,Urine Normal
[2024-04-23] MEDS ORDERED: ONDANSETRON 4 MG/2 ML VIAL IV PRN (15:56)
[2024-04-23] MEDS: IPRATROPIUM/ALBUTEROL 3 ML AMPUL.NEB NEB SCH (15:56)
[2024-04-23] MEDS ORDERED: morphine 4 MG/ML VIAL IV PRN (15:56)
[2024-04-23] MEDS: LIDOCAINE 4% TOP PATCH TOPICAL SCH (16:22)
[2024-04-23] MEDS: 0.9 % SODIUM CHLORIDE 10 ML SYRINGE IV SCH (16:23)
[2024-04-23] MEDS: rOPINIRole 1 MG TABLET PO SCH (20:05)
[2024-04-23] MEDS: guaiFENesin 600 MG TAB.SR.12H PO SCH (20:05)
[2024-04-23] MEDS: APIXABAN 2.5 MG TABLET PO SCH (20:06)
[2024-04-23] MEDS: MONTELUKAST 10 MG TABLET PO SCH (20:06)
[2024-04-23] MEDS: METOPROLOL TARTRATE 50 MG TABLET PO SCH (20:06)
[2024-04-23] MEDS: predniSONE 20 MG TABLET PO SCH (20:06)
[2024-04-23] MEDS: GABAPENTIN 100 MG CAPSULE PO SCH (20:06)
[2024-04-23] MEDS: SENNOSIDES 1 TABLET PO SCH (20:07)
[2024-04-23] MEDS: DOCUSATE SODIUM 100 MG CAPSULE PO SCH (20:07)
[2024-04-23] MEDS: ALBUTEROL SULFATE 60 PUFF INHALER INH SCH (20:07)
[2024-04-23] MEDS: ERYTHROMYCIN OPHTH OINT 3.5GM TUBE OU SCH (20:08)
[2024-04-23] MEDS: HYDROcodone/APAP 10/325MG TABLET PO PRN (22:28)
[2024-04-23] MEDS: BUDESONIDE 0.5 MG/2 ML AMPUL.NEB NAS SCH (23:03)
[2024-04-24 06:33] LABS: Basophils # (Auto) 0.02 K/mcL (0.00-0.30); Basophils % (Auto) 0.1 % (0.0-2.0); Eosinophils # (Auto) 0 K/mcL (0.00-0.70); Eosinophils % (Auto) 0 % (0.0-7.0); Hemoglobin 14.4 g/dL (11.2-15.7); Lymphocytes # (Auto) 0.98 K/mcL (1.50-4.80); Lymphocytes % (Auto) 5.5 % (15.5-49.0); Mean Platelet Volume 10.6 fL (8.8-12.5); Monocytes # (Auto) 0.32 K/mcL (0.10-0.90); Monocytes % (Auto) 1.8 % (1.0-12.0); Neutrophils % (Auto) 90.7 % (38.0-78.0); Platelet Count 225 K/mcL (140-440); RBC 4.64 M/mcL (3.59-5.38); Red Cell Distribution Width 12.4 % (11.5-14.5); WBC 17.8 K/mcL (4.5-11.0)
[2024-04-24 07:05] LABS: ALT/SGPT 23 U/L (<40); AST/SGOT 22 U/L (<32); Albumin 3.9 gm/dL (3.2-5.2); Albumin/Globulin Ratio 1.6 (1.0-2.3); Alkaline Phosphatase 63 U/L (39-117); Bilirubin,Total 0.4 mg/dL (0.1-1.0); Blood Urea Nitrogen 18 mg/dL (8-23); Calcium 10.1 mg/dL (8.6-10.4); Carbon Dioxide 28 mmol/L (22-30); Chloride 101 mmol/L (96-108); Globulin 2.4 gm/dL (2.2-3.7); Glomerular Filtration Rate 86; Glucose 190 mg/dL (70-105); Potassium 3.8 mmol/L (3.3-5.1); Sodium 140 mmol/L (133-145)
[2024-04-24] MEDS: FUROSEMIDE 20 MG TABLET PO SCH (08:10)
[2024-04-24] MEDS: LEVOTHYROXINE 88 MCG TABLET PO SCH (08:11)
[2024-04-24] MEDS: ASCORBIC ACID 500 MG TABLET PO SCH (08:11)
[2024-04-24] MEDS: LOSARTAN 50 MG TABLET PO SCH (08:11)
[2024-04-24] MEDS: Fluticasone Furoate-Vilanterol [Breo Ellipta] 200/25 mcg Inhaler INH SCH (08:12)
[2024-04-24] MEDS: cefTRIAXone 1 GM VIAL IV SCH (08:22)
[2024-04-24] MEDS: ACETAMINOPHEN 325 MG TABLET PO PRN (08:29)
[2024-04-24] MEDS: AZITHROMYCIN 500 MG in DEXTROSE 5% IN WATER 250 ML IV SCH (10:46)
[2024-04-24] MEDS ORDERED: rOPINIRole 1 MG TABLET PO PRN (12:00)
[2024-04-24] MEDS ORDERED: KETOROLAC 30 MG/ML VIAL IV PRN (13:06)
[2024-04-24] MEDS: HYDROCODONE/APAP 7.5/325MG TABLET PO PRN (15:18)
[2024-04-25] MEDS ORDERED: HYDROCODONE/APAP 7.5/325MG TABLET PO PRN (03:00)
[2024-04-25 07:09] LABS: Basophils # (Auto) 0.05 K/mcL (0.00-0.30); Basophils % (Auto) 0.2 % (0.0-2.0); Eosinophils # (Auto) 0.05 K/mcL (0.00-0.70); Eosinophils % (Auto) 0.2 % (0.0-7.0); Hematocrit 46.5 % (34.1-44.9); Hemoglobin 14.8 g/dL (11.2-15.7); Lymphocytes # (Auto) 1.53 K/mcL (1.50-4.80); Mean Cell Volume 97.9 fL (80.0-100.0); Mean Corpuscular HGB Conc 31.8 g/dL (31.0-36.0); Mean Platelet Volume 10.5 fL (8.8-12.5); Monocytes # (Auto) 1.82 K/mcL (0.10-0.90); Monocytes % (Auto) 8.4 % (1.0-12.0); Neutrophils % (Auto) 81.6 % (38.0-78.0); Platelet Count 244 K/mcL (140-440); RBC 4.75 M/mcL (3.59-5.38); Red Cell Distribution Width 12.4 % (11.5-14.5); WBC 21.7 K/mcL (4.5-11.0)
[2024-04-25 07:53] LABS: ALT/SGPT 30 U/L (<40); AST/SGOT 34 U/L (<32); Albumin 3.7 gm/dL (3.2-5.2); Albumin/Globulin Ratio 1.6 (1.0-2.3); Alkaline Phosphatase 59 U/L (39-117); Bilirubin,Total 0.4 mg/dL (0.1-1.0); Blood Urea Nitrogen 25 mg/dL (8-23); Calcium 10.3 mg/dL (8.6-10.4); Carbon Dioxide 27 mmol/L (22-30); Chloride 102 mmol/L (96-108); Globulin 2.3 gm/dL (2.2-3.7); Glomerular Filtration Rate 81; Glucose 121 mg/dL (70-105); Potassium 3.9 mmol/L (3.3-5.1); Sodium 143 mmol/L (133-145)
[2024-04-25] MEDS: APIXABAN 2.5 MG TABLET PO SCH (10:45)
[2024-04-25] MEDS: NYSTATIN 500,000 UNITS/5 ML ORAL.SUSP SSW SCH (22:52)
[2024-04-26 06:53] LABS: Basophils # (Auto) 0.05 K/mcL (0.00-0.30); Basophils % (Auto) 0.3 % (0.0-2.0); Eosinophils # (Auto) 0.09 K/mcL (0.00-0.70); Eosinophils % (Auto) 0.6 % (0.0-7.0); Hematocrit 43.9 % (34.1-44.9); Hemoglobin 13.8 g/dL (11.2-15.7); Lymphocytes # (Auto) 1.79 K/mcL (1.50-4.80); Mean Cell Volume 99.1 fL (80.0-100.0); Mean Corpuscular HGB Conc 31.4 g/dL (31.0-36.0); Monocytes # (Auto) 1.34 K/mcL (0.10-0.90); Neutrophils % (Auto) 74.1 % (38.0-78.0); Platelet Count 256 K/mcL (140-440); RBC 4.43 M/mcL (3.59-5.38); Red Cell Distribution Width 12.4 % (11.5-14.5); WBC 14.9 K/mcL (4.5-11.0)
[2024-04-26 06:55] LABS: ALT/SGPT 32 U/L (<40); AST/SGOT 26 U/L (<32); Albumin 3.5 gm/dL (3.2-5.2); Albumin/Globulin Ratio 1.8 (1.0-2.3); Alkaline Phosphatase 54 U/L (39-117); Bilirubin,Total 0.3 mg/dL (0.1-1.0); Blood Urea Nitrogen 23 mg/dL (8-23); Calcium 9.6 mg/dL (8.6-10.4); Carbon Dioxide 31 mmol/L (22-30); Chloride 103 mmol/L (96-108); Globulin 1.9 gm/dL (2.2-3.7); Glomerular Filtration Rate 86; Glucose 105 mg/dL (70-105); Potassium 3.6 mmol/L (3.3-5.1); Sodium 143 mmol/L (133-145)
[2024-04-27 06:45] LABS: Basophils # (Auto) 0.01 K/mcL (0.00-0.30); Basophils % (Auto) 0.1 % (0.0-2.0); Eosinophils # (Auto) 0.15 K/mcL (0.00-0.70); Eosinophils % (Auto) 1.1 % (0.0-7.0); Hematocrit 45.2 % (34.1-44.9); Hemoglobin 14.6 g/dL (11.2-15.7); Lymphocytes # (Auto) 1.82 K/mcL (1.50-4.80); Lymphocytes % (Auto) 13.7 % (15.5-49.0); Mean Cell Volume 95.6 fL (80.0-100.0); Mean Corpuscular HGB Conc 32.3 g/dL (31.0-36.0); Mean Platelet Volume 9.6 fL (8.8-12.5); Monocytes # (Auto) 1.39 K/mcL (0.10-0.90); Monocytes % (Auto) 10.5 % (1.0-12.0); Neutrophils % (Auto) 70.2 % (38.0-78.0); Platelet Count 231 K/mcL (140-440); RBC 4.73 M/mcL (3.59-5.38); Red Cell Distribution Width 12.4 % (11.5-14.5); WBC 13.3 K/mcL (4.5-11.0)
[2024-04-27 07:03] LABS: ALT/SGPT 40 U/L (<40); AST/SGOT 29 U/L (<32); Albumin 3.5 gm/dL (3.2-5.2); Albumin/Globulin Ratio 1.8 (1.0-2.3); Alkaline Phosphatase 56 U/L (39-117); Bilirubin,Total 0.5 mg/dL (0.1-1.0); Blood Urea Nitrogen 20 mg/dL (8-23); Calcium 9.7 mg/dL (8.6-10.4); Carbon Dioxide 30 mmol/L (22-30); Chloride 103 mmol/L (96-108); Glomerular Filtration Rate 86; Glucose 96 mg/dL (70-105); Potassium 3.5 mmol/L (3.3-5.1); Sodium 142 mmol/L (133-145)
[2024-04-27] MEDS ORDERED: KETOROLAC 30 MG/ML VIAL IV PRN (11:24)
[2024-04-27] MEDS: IPRATROPIUM/ALBUTEROL 3 ML AMPUL.NEB NEB SCH (14:15)
[2024-04-27] MEDS: traZODone HCL 50 MG TABLET PO PRN (20:05)
[2024-04-28 06:57] LABS: Basophils # (Auto) 0.03 K/mcL (0.00-0.30); Basophils % (Auto) 0.2 % (0.0-2.0); Eosinophils # (Auto) 0.12 K/mcL (0.00-0.70); Eosinophils % (Auto) 0.8 % (0.0-7.0); Hematocrit 45.9 % (34.1-44.9); Hemoglobin 14.4 g/dL (11.2-15.7); Lymphocytes # (Auto) 2.12 K/mcL (1.50-4.80); Mean Cell Volume 99.6 fL (80.0-100.0); Mean Corpuscular HGB Conc 31.4 g/dL (31.0-36.0); Monocytes % (Auto) 8.6 % (1.0-12.0); Neutrophils % (Auto) 71.6 % (38.0-78.0); Platelet Count 270 K/mcL (140-440); RBC 4.61 M/mcL (3.59-5.38); Red Cell Distribution Width 12.5 % (11.5-14.5); WBC 15.1 K/mcL (4.5-11.0)
[2024-04-28 07:27] LABS: ALT/SGPT 46 U/L (<40); AST/SGOT 28 U/L (<32); Albumin 3.5 gm/dL (3.2-5.2); Albumin/Globulin Ratio 1.8 (1.0-2.3); Alkaline Phosphatase 59 U/L (39-117); Bilirubin,Direct < 0.2 mg/dL (0-0.3); Bilirubin,Total 0.4 mg/dL (0.1-1.0); Blood Urea Nitrogen 25 mg/dL (8-23); Calcium 9.7 mg/dL (8.6-10.4); Carbon Dioxide 31 mmol/L (22-30); Chloride 101 mmol/L (96-108); Globulin 1.9 gm/dL (2.2-3.7); Glomerular Filtration Rate 81; Glucose 101 mg/dL (70-105); Lactate Dehydrogenase 231 U/L (135-225); Phosphorous 3.2 mg/dL (2.5-4.5); Potassium 3.8 mmol/L (3.3-5.1); Sodium 142 mmol/L (133-145); Triglycerides 155 mg/dL (<150); Uric Acid 4.1 mg/dL (2.5-8.0)
[2024-04-29 06:20] LABS: Basophils # (Auto) 0.01 K/mcL (0.00-0.30); Basophils % (Auto) 0.1 % (0.0-2.0); Eosinophils # (Auto) 0.14 K/mcL (0.00-0.70); Eosinophils % (Auto) 0.9 % (0.0-7.0); Hematocrit 44.8 % (34.1-44.9); Hemoglobin 14.2 g/dL (11.2-15.7); Lymphocytes # (Auto) 2.02 K/mcL (1.50-4.80); Lymphocytes % (Auto) 12.6 % (15.5-49.0); Mean Cell Volume 98.5 fL (80.0-100.0); Mean Corpuscular HGB Conc 31.7 g/dL (31.0-36.0); Mean Platelet Volume 9.8 fL (8.8-12.5); Monocytes # (Auto) 1.19 K/mcL (0.10-0.90); Monocytes % (Auto) 7.4 % (1.0-12.0); Neutrophils % (Auto) 74.6 % (38.0-78.0); Platelet Count 261 K/mcL (140-440); RBC 4.55 M/mcL (3.59-5.38); Red Cell Distribution Width 12.5 % (11.5-14.5)
[2024-04-29 06:53] LABS: Blood Urea Nitrogen 21 mg/dL (8-23); Calcium 9.5 mg/dL (8.6-10.4); Carbon Dioxide 32 mmol/L (22-30); Chloride 102 mmol/L (96-108); Glomerular Filtration Rate 86; Glucose 102 mg/dL (70-105); Potassium 3.8 mmol/L (3.3-5.1); Sodium 142 mmol/L (133-145)
[2024-04-29 07:37] VITALS: TEMP 98.5
[2024-04-29] MEDS: CEFDINIR 300 MG CAPSULE PO SCH (08:15)
[2024-04-29] MEDS: predniSONE 20 MG TABLET PO SCH (08:15)
[2024-04-29 09:41] VITALS: O2SAT 97
== END 2024-04-29 11:46 | DRG 190 ==
LOC: ED 09:19 → MEDSUR 15:05
PROVIDERS: ADMIT Internal Medicine; ATTEND Internal Medicine

== ENCOUNTER 2024-06-17 06:46 | Inpatient (IN) ==
[2024-06-17] MEDS: KETOROLAC 60 MG/2 ML VIAL IM ONE (08:36)
[2024-06-17] MEDS: HYDROcodone/APAP 5/325MG TABLET PO ONE (08:37)
[2024-06-17] MEDS: IBUPROFEN 600 MG TABLET PO ONE (08:37)
[2024-06-17] MEDS: METOPROLOL TARTRATE 50 MG TABLET PO ONE (10:51)
[2024-06-17] MEDS: FUROSEMIDE 20 MG TABLET PO ONE (10:53)
[2024-06-17] MEDS: APIXABAN 2.5 MG TABLET PO SCH (11:19)
[2024-06-17] MEDS: rOPINIRole 1 MG TABLET PO SCH (11:19)
[2024-06-17] MEDS: LOSARTAN 50 MG TABLET PO ONE (11:20)
[2024-06-17] MEDS: LEVOTHYROXINE 88 MCG TABLET PO ONE (11:20)
[2024-06-17] MEDS: tiZANidine 4 MG TABLET PO SCH (11:20)
[2024-06-17] MEDS: 0.9 % SODIUM CHLORIDE 250 ML IV SCH (12:43)
[2024-06-17] MEDS: NOREPINEPHRINE 250 ML IV ONE ×2 (12:43→12:56)
[2024-06-17 13:24] LABS: Basophils # (Auto) 0.05 K/mcL (0.00-0.30); Basophils % (Auto) 0.5 % (0.0-2.0); Eosinophils # (Auto) 0.27 K/mcL (0.00-0.70); Eosinophils % (Auto) 2.7 % (0.0-7.0); Hematocrit 38.2 % (34.1-44.9); Lymphocytes # (Auto) 1.24 K/mcL (1.50-4.80); Lymphocytes % (Auto) 12.3 % (15.5-49.0); Mean Cell Volume 97.7 fL (80.0-100.0); Mean Corpuscular HGB Conc 31.4 g/dL (31.0-36.0); Mean Platelet Volume 10.3 fL (8.8-12.5); Monocytes # (Auto) 0.99 K/mcL (0.10-0.90); Monocytes % (Auto) 9.8 % (1.0-12.0); Neutrophils % (Auto) 74.1 % (38.0-78.0); Platelet Count 200 K/mcL (140-440); RBC 3.91 M/mcL (3.59-5.38); Red Cell Distribution Width 11.9 % (11.5-14.5); WBC 10.1 K/mcL (4.5-11.0)
[2024-06-17 13:49] LABS: ALT/SGPT 21 U/L (<40); AST/SGOT 26 U/L (<32); Albumin 3.1 gm/dL (3.2-5.2); Albumin/Globulin Ratio 1.8 (1.0-2.3); Alkaline Phosphatase 74 U/L (39-117); Bilirubin,Total 0.4 mg/dL (0.1-1.0); Blood Urea Nitrogen 16 mg/dL (8-23); Carbon Dioxide 28 mmol/L (22-30); Chloride 103 mmol/L (96-108); Globulin 1.7 gm/dL (2.2-3.7); Glomerular Filtration Rate 81; Glucose 105 mg/dL (70-105); Sodium 140 mmol/L (133-145); Thyroid Stimulating Hormone 0.52 uIU/mL (0.27-5.01)
[2024-06-17 14:15] LABS: Free T4 (Free Thyroxine) 1.45 ng/dL (0.93-1.70)
[2024-06-17 14:42] LABS: Appearance,Urine Clear (Clear); Bilirubin,Urine Negative (Negative); Color,Urine Yellow; Glucose,Urine (UA) Negative (Negative); Ketones,Urine Negative (Negative); Leukocyte Esterase,Urine Negative /uL (Negative); Nitrate,Urine Negative (Negative); Protein,Urine Negative (Negative); Specific Gravity,Urine 1.015 (1.000-1.035); Urine Blood Negative ery/mcL (Negative); Urine RBC 0 /hpf (0-3); Urine Squamous Epithelial Cell 0 /hpf (0-4); Urine WBC 0 /hpf (0-4); Urobilinogen,Urine Normal
[2024-06-17] MEDS: ACETAMINOPHEN 325 MG TABLET PO ONE (16:19)
[2024-06-17] MEDS: KETOROLAC 15 MG/ML VIAL IV ONE (17:01)
[2024-06-17] MEDS: rOPINIRole 1 MG TABLET PO ONE (17:03)
[2024-06-17] MEDS ORDERED: POLYETHYLENE GLYCOL 3350 17 GM PACKET PO PRN (19:24)
[2024-06-17 20:05] LABS: ABG Methemoglobin 0.3 % (0.4-1.5); Total Hemoglobin 14.9 gm/Dl (12.0-15.0); VBG Base Excess 3 (-2-3); VBG HCO3 28.9 mmol/L (24.0-28.0); VBG Oxygen Saturation 78.7 % (40.0-70.0); VBG PCO2 49.6 mmHg (41.0-51.0); VBG PH 7.38 U (7.32-7.42); VBG PO2 43.6 mmHg (25.0-40.0); VBG Total CO2 30.4 mmol/L (25.0-29.0)
[2024-06-17] MEDS: BUDESONIDE 0.5 MG/2 ML AMPUL.NEB ONE (20:19)
[2024-06-17] MEDS: ALBUTEROL SULFATE 2.5 MG/3 ML NEBULIZER ONE (20:19)
[2024-06-17] MEDS: BUDESONIDE 0.5 MG/2 ML AMPUL.NEB NEB SCH (20:19)
[2024-06-17] MEDS: ALBUTEROL SULFATE 2.5 MG/3 ML NEBULIZER NEB ONE (20:19)
[2024-06-17] MEDS: HYDROCODONE/APAP 7.5/325MG TABLET PO PRN (21:51)
[2024-06-17] MEDS: APIXABAN 5 MG TABLET PO SCH (21:53)
[2024-06-17] MEDS: DOCUSATE SODIUM 100 MG CAPSULE PO SCH (21:53)
[2024-06-17] MEDS: SENNOSIDES 1 TABLET PO SCH (21:53)
[2024-06-17] MEDS: 0.9 % SODIUM CHLORIDE 10 ML SYRINGE IV SCH (22:23)
[2024-06-18] MEDS ORDERED: IPRATROPIUM/ALBUTEROL 3 ML AMPUL.NEB NEB SCH (01:00)
[2024-06-18] MEDS: ACETAMINOPHEN 325 MG TABLET PO PRN (02:27)
[2024-06-18 06:05] LABS: Basophils # (Auto) 0.03 K/mcL (0.00-0.30); Basophils % (Auto) 0.2 % (0.0-2.0); Eosinophils # (Auto) 0.19 K/mcL (0.00-0.70); Eosinophils % (Auto) 1.3 % (0.0-7.0); Hematocrit 45.5 % (34.1-44.9); Hemoglobin 14.4 g/dL (11.2-15.7); Lymphocytes # (Auto) 1.46 K/mcL (1.50-4.80); Lymphocytes % (Auto) 10.1 % (15.5-49.0); Mean Corpuscular HGB Conc 31.6 g/dL (31.0-36.0); Monocytes # (Auto) 1.13 K/mcL (0.10-0.90); Monocytes % (Auto) 7.8 % (1.0-12.0); Neutrophils % (Auto) 79.8 % (38.0-78.0); Platelet Count 239 K/mcL (140-440); RBC 4.69 M/mcL (3.59-5.38); Red Cell Distribution Width 11.7 % (11.5-14.5); WBC 14.4 K/mcL (4.5-11.0)
[2024-06-18 06:26] LABS: ALT/SGPT 38 U/L (<40); AST/SGOT 40 U/L (<32); Albumin 3.8 gm/dL (3.2-5.2); Albumin/Globulin Ratio 1.7 (1.0-2.3); Alkaline Phosphatase 103 U/L (39-117); Bilirubin,Direct 0.3 mg/dL (<0.3); Bilirubin,Total 0.8 mg/dL (0.1-1.0); Blood Urea Nitrogen 10 mg/dL (8-23); Calcium 9.4 mg/dL (8.6-10.4); Carbon Dioxide 23 mmol/L (22-30); Chloride 100 mmol/L (96-108); Globulin 2.3 gm/dL (2.2-3.7); Glomerular Filtration Rate 86; Glucose 77 mg/dL (70-105); Lactate Dehydrogenase 272 U/L (135-225); Phosphorous 2.6 mg/dL (2.5-4.5); Potassium 3.3 mmol/L (3.3-5.1); Sodium 141 mmol/L (133-145); Triglycerides 101 mg/dL (<150); Uric Acid 4.9 mg/dL (2.5-8.0)
[2024-06-18] MEDS: HYDROmorphone 0.5 MG/0.5 ML SYRINGE IV PRN (06:34)
[2024-06-18] MEDS: ONDANSETRON 4 MG/2 ML VIAL IV PRN (07:46)
[2024-06-18] MEDS: LEVOTHYROXINE 88 MCG TABLET PO SCH (07:47)
[2024-06-18] MEDS: SENNOSIDES 1 TABLET PO SCH (09:04)
[2024-06-18] MEDS: MELOXICAM 7.5 MG TABLET PO SCH (09:04)
[2024-06-18] MEDS: FUROSEMIDE 20 MG TABLET PO SCH (09:05)
[2024-06-18] MEDS: guaiFENesin 600 MG TAB.SR.12H PO SCH (09:05)
[2024-06-18] MEDS: METOPROLOL TARTRATE 50 MG TABLET PO SCH (09:05)
[2024-06-18] MEDS: POLYETHYLENE GLYCOL 3350 17 GM PACKET PO SCH (09:06)
[2024-06-18] MEDS: predniSONE 5 MG TABLET PO SCH (09:06)
[2024-06-18] MEDS: LOSARTAN 50 MG TABLET PO SCH (09:06)
[2024-06-18] MEDS: Fluticasone Furoate-Vilanterol [Breo Ellipta] 200 INH SCH (09:07)
[2024-06-18] MEDS: HYDROcodone/APAP 10/325MG TABLET PO PRN (13:44)
[2024-06-18] MEDS: rOPINIRole 1 MG TABLET PO SCH (19:46)
[2024-06-18] MEDS: GABAPENTIN 100 MG CAPSULE PO SCH (20:02)
[2024-06-18] MEDS: MONTELUKAST 10 MG TABLET PO SCH (20:02)
[2024-06-19] MEDS: ALBUTEROL SULFATE 2.5 MG/3 ML NEBULIZER NEB PRN (08:45)
[2024-06-19 09:32] LABS: Basophils # (Auto) 0.04 K/mcL (0.00-0.30); Basophils % (Auto) 0.4 % (0.0-2.0); Eosinophils # (Auto) 0.34 K/mcL (0.00-0.70); Eosinophils % (Auto) 3.3 % (0.0-7.0); Hematocrit 45.1 % (34.1-44.9); Hemoglobin 14.3 g/dL (11.2-15.7); Lymphocytes # (Auto) 1.79 K/mcL (1.50-4.80); Lymphocytes % (Auto) 17.5 % (15.5-49.0); Mean Cell Volume 96.4 fL (80.0-100.0); Mean Corpuscular HGB Conc 31.7 g/dL (31.0-36.0); Mean Platelet Volume 10.1 fL (8.8-12.5); Monocytes # (Auto) 0.73 K/mcL (0.10-0.90); Monocytes % (Auto) 7.1 % (1.0-12.0); Platelet Count 234 K/mcL (140-440); RBC 4.68 M/mcL (3.59-5.38); Red Cell Distribution Width 11.8 % (11.5-14.5); WBC 10.2 K/mcL (4.5-11.0)
[2024-06-19 10:03] LABS: ALT/SGPT 30 U/L (<40); AST/SGOT 29 U/L (<32); Albumin 3.4 gm/dL (3.2-5.2); Albumin/Globulin Ratio 1.7 (1.0-2.3); Alkaline Phosphatase 92 U/L (39-117); Bilirubin,Direct < 0.2 mg/dL (0-0.3); Bilirubin,Total 0.4 mg/dL (0.1-1.0); Blood Urea Nitrogen 10 mg/dL (8-23); Calcium 8.7 mg/dL (8.6-10.4); Carbon Dioxide 27 mmol/L (22-30); Chloride 103 mmol/L (96-108); Glomerular Filtration Rate 81; Glucose 227 mg/dL (70-105); Lactate Dehydrogenase 210 U/L (135-225); Potassium 3.5 mmol/L (3.3-5.1); Sodium 140 mmol/L (133-145); Triglycerides 95 mg/dL (<150); Uric Acid 4.7 mg/dL (2.5-8.0)
[2024-06-19] MEDS: POTASSIUM CHLORIDE 20 MEQ TABLET PO ONE (10:37)
[2024-06-19] MEDS ORDERED: KETAMINE 50 MG/ML Syringe IV ONE (11:20)
[2024-06-19] MEDS ORDERED: PROPOFOL 200 MG/20 ML VIAL IV ONE (11:20)
[2024-06-19] MEDS ORDERED: fentaNYL 100 MCG/2 ML VIAL ONE (11:20)
[2024-06-19] MEDS ORDERED: ROCURONIUM 10 MG/ML ML IV ONE (15:27)
[2024-06-19] MEDS: ceFAZolin 2 GM in DEXTROSE 5% IN WATER 50 ML IV SCH ×2 (15:54→19:35)
[2024-06-19] MEDS ORDERED: PHENYLephrine 1 MG/10 ML SYRINGE (ANEST) ONE (16:03)
[2024-06-19] MEDS ORDERED: SUGAMMADEX SODIUM 200 MG/2 ML VIAL IV ONE (16:21)
[2024-06-19] MEDS ORDERED: MAGNESIUM SULFATE 2 GM/50 ML BAG IV ONE (16:28)
[2024-06-19] MEDS ORDERED: PHENYLEPHRINE 10 MG/ML VIAL ONE (16:29)
[2024-06-19] MEDS ORDERED: BENZOCAINE/MENTHOL 1 LOZENGE PO PRN ×2 (16:46→18:13)
[2024-06-19] MEDS ORDERED: IPRATROPIUM/ALBUTEROL 3 ML AMPUL.NEB NEB PRN (16:46)
[2024-06-19] MEDS ORDERED: HYDROmorphone 0.5 MG/0.5 ML SYRINGE IV PRN (16:46)
[2024-06-19] MEDS ORDERED: ONDANSETRON 4 MG/2 ML VIAL IV PRN (16:46)
[2024-06-19] MEDS ORDERED: LACTATED RINGERS 250 ML IV PRN (16:46)
[2024-06-19] MEDS ORDERED: NALOXONE HCL 0.4 MG/ML VIAL IV PRN (16:46)
[2024-06-19] MEDS ORDERED: HYDROmorphone 0.5 MG/0.5 ML SYRINGE ONE (16:58)
[2024-06-19] MEDS ORDERED: FLEETS ADULT 1 DOSE ENEMA PR PRN (18:13)
[2024-06-19] MEDS ORDERED: POLYETHYLENE GLYCOL 3350 17 GM PACKET PO PRN (18:13)
[2024-06-19] MEDS ORDERED: MAGNESIUM HYDROXIDE 30 ML ORAL.SUSP PO PRN (18:13)
[2024-06-19] MEDS: ACETAMINOPHEN 1,000 MG/100 ML BAG IV ONE (18:23)
[2024-06-19] MEDS: fentaNYL 100 MCG/2 ML VIAL IV PRN (18:38)
[2024-06-19] MEDS: METHOCARBAMOL 1,000 MG/10 ML VIAL IV PRN (18:41)
[2024-06-19] MEDS ORDERED: SENNOSIDES 1 TABLET PO SCH (21:00)
[2024-06-19] MEDS: HYDROcodone/APAP 10/325MG TABLET PO PRN (21:41)
[2024-06-19] MEDS: METHOCARBAMOL 750 MG TABLET PO PRN (21:41)
[2024-06-19] MEDS: DOCUSATE SODIUM 100 MG CAPSULE PO SCH (21:41)
[2024-06-19] MEDS: HALOPERIDOL LACTATE 5 MG/ML VIAL IV PRN (22:39)
[2024-06-19] MEDS: HALOPERIDOL LACTATE 5 MG/ML VIAL ONE (22:54)
[2024-06-19] MEDS: LACTATED RINGERS 1,000 ML IV SCH (22:55)
[2024-06-20] MEDS: ceFAZolin 1 GM VIAL IV SCH (00:48)
[2024-06-20 06:46] LABS: ALT/SGPT 27 U/L (<40); AST/SGOT 34 U/L (<32); Albumin 3.1 gm/dL (3.2-5.2); Albumin/Globulin Ratio 1.7 (1.0-2.3); Alkaline Phosphatase 75 U/L (39-117); Bilirubin,Direct < 0.2 mg/dL (0-0.3); Bilirubin,Total 0.4 mg/dL (0.1-1.0); Blood Urea Nitrogen 13 mg/dL (8-23); Carbon Dioxide 23 mmol/L (22-30); Chloride 104 mmol/L (96-108); Globulin 1.8 gm/dL (2.2-3.7); Glomerular Filtration Rate 77; Glucose 163 mg/dL (70-105); Lactate Dehydrogenase 237 U/L (135-225); Phosphorous 3.9 mg/dL (2.5-4.5); Potassium 4.3 mmol/L (3.3-5.1); Sodium 138 mmol/L (133-145); Triglycerides 89 mg/dL (<150); Uric Acid 4.9 mg/dL (2.5-8.0)
[2024-06-20 06:53] LABS: Basophils # (Auto) 0.01 K/mcL (0.00-0.30); Basophils % (Auto) 0.1 % (0.0-2.0); Eosinophils # (Auto) 0 K/mcL (0.00-0.70); Eosinophils % (Auto) 0 % (0.0-7.0); Hematocrit 39.3 % (34.1-44.9); Hemoglobin 12.2 g/dL (11.2-15.7); Lymphocytes # (Auto) 0.79 K/mcL (1.50-4.80); Lymphocytes % (Auto) 4.8 % (15.5-49.0); Mean Platelet Volume 10.5 fL (8.8-12.5); Monocytes # (Auto) 0.97 K/mcL (0.10-0.90); Monocytes % (Auto) 5.9 % (1.0-12.0); Neutrophils % (Auto) 88.3 % (38.0-78.0); Platelet Count 225 K/mcL (140-440); RBC 3.93 M/mcL (3.59-5.38); WBC 16.4 K/mcL (4.5-11.0)
[2024-06-20] MEDS: APIXABAN 2.5 MG TABLET PO SCH ×2 (08:55→21:20)
[2024-06-20] MEDS: LACTATED RINGERS 500 ML IV ONE (10:00)
[2024-06-20 11:20] LABS: Estimated Average Glucose(eAG) 128 mg/dL; Hemoglobin A1C 6.1 % Hgb (4.0-6.0)
[2024-06-20] MEDS: 0.9 % SODIUM CHLORIDE 500 ML IV ONE ×3 (13:54→22:00)
[2024-06-20] MEDS: rOPINIRole 1 MG TABLET PO PRN (18:57)
[2024-06-20] MEDS ORDERED: DILTIAZEM 25 MG/5 ML VIAL IV PRN (19:56)
[2024-06-20] MEDS: METOPROLOL TARTRATE 5 MG/5 ML VIAL IV PRN (20:07)
[2024-06-21 06:57] LABS: ALT/SGPT 18 U/L (<40); AST/SGOT 34 U/L (<32); Albumin 3.3 gm/dL (3.2-5.2); Albumin/Globulin Ratio 1.6 (1.0-2.3); Alkaline Phosphatase 81 U/L (39-117); Bilirubin,Total 0.3 mg/dL (0.1-1.0); Blood Urea Nitrogen 21 mg/dL (8-23); Calcium 9.4 mg/dL (8.6-10.4); Carbon Dioxide 26 mmol/L (22-30); Chloride 104 mmol/L (96-108); Globulin 2.1 gm/dL (2.2-3.7); Glomerular Filtration Rate 77; Glucose 120 mg/dL (70-105); Potassium 4.3 mmol/L (3.3-5.1); Sodium 140 mmol/L (133-145)
[2024-06-21 07:54] LABS: Basophils # (Auto) 0.04 K/mcL (0.00-0.30); Basophils % (Auto) 0.2 % (0.0-2.0); Eosinophils # (Auto) 0.08 K/mcL (0.00-0.70); Eosinophils % (Auto) 0.4 % (0.0-7.0); Hemoglobin 11.9 g/dL (11.2-15.7); Lymphocytes % (Auto) 8.9 % (15.5-49.0); Mean Corpuscular HGB Conc 31.3 g/dL (31.0-36.0); Mean Platelet Volume 10.6 fL (8.8-12.5); Monocytes # (Auto) 1.79 K/mcL (0.10-0.90); Platelet Count 260 K/mcL (140-440); RBC 3.96 M/mcL (3.59-5.38); Red Cell Distribution Width 12.2 % (11.5-14.5); WBC 17.9 K/mcL (4.5-11.0)
[2024-06-21] MEDS: ASCORBIC ACID 500 MG TABLET PO SCH (08:40)
[2024-06-21] MEDS: FUROSEMIDE 20 MG TABLET PO SCH (08:41)
[2024-06-21] MEDS: DILTIAZEM 25 MG/5 ML VIAL IV PRN (08:47)
[2024-06-21] MEDS: LIDOCAINE 4% TOP PATCH TOPICAL SCH (13:33)
[2024-06-22 06:47] LABS: Basophils # (Auto) 0.01 K/mcL (0.00-0.30); Basophils % (Auto) 0.1 % (0.0-2.0); Eosinophils # (Auto) 0.24 K/mcL (0.00-0.70); Eosinophils % (Auto) 1.6 % (0.0-7.0); Hematocrit 36.4 % (34.1-44.9); Hemoglobin 11.3 g/dL (11.2-15.7); Lymphocytes # (Auto) 1.73 K/mcL (1.50-4.80); Lymphocytes % (Auto) 11.7 % (15.5-49.0); Mean Cell Volume 98.4 fL (80.0-100.0); Mean Platelet Volume 10.6 fL (8.8-12.5); Monocytes # (Auto) 1.89 K/mcL (0.10-0.90); Monocytes % (Auto) 12.7 % (1.0-12.0); Neutrophils % (Auto) 72.9 % (38.0-78.0); Platelet Count 257 K/mcL (140-440); Red Cell Distribution Width 12.2 % (11.5-14.5); WBC 14.8 K/mcL (4.5-11.0)
[2024-06-22 07:29] LABS: ALT/SGPT 22 U/L (<40); AST/SGOT 32 U/L (<32); Albumin 3.2 gm/dL (3.2-5.2); Albumin/Globulin Ratio 1.5 (1.0-2.3); Alkaline Phosphatase 74 U/L (39-117); Bilirubin,Total 0.3 mg/dL (0.1-1.0); Blood Urea Nitrogen 23 mg/dL (8-23); Calcium 9.6 mg/dL (8.6-10.4); Carbon Dioxide 29 mmol/L (22-30); Chloride 106 mmol/L (96-108); Globulin 2.2 gm/dL (2.2-3.7); Glomerular Filtration Rate 86; Glucose 127 mg/dL (70-105); Potassium 4.4 mmol/L (3.3-5.1); Sodium 142 mmol/L (133-145)
[2024-06-22] MEDS: LORazepam 2 MG/ML VIAL IV ONE (10:07)
[2024-06-22] MEDS ORDERED: IOPAMIDOL 100 ML BOTTLE IV ONE (11:25)
[2024-06-22] MEDS ORDERED: tiZANidine 4 MG TABLET PO PRN (13:03)
[2024-06-22] MEDS: APIXABAN 2.5 MG TABLET PO ONE (13:28)
[2024-06-22] MEDS: DILTIAZEM 125 MG in DEXTROSE 5% IN WATER 100 ML IV SCH (13:44)
[2024-06-22] MEDS: APIXABAN 2.5 MG TABLET PO SCH (20:31)
[2024-06-22] MEDS: METOPROLOL TARTRATE 50 MG TABLET PO SCH (20:33)
[2024-06-22] MEDS: hydrOXYzine 25 MG TABLET PO PRN (20:42)
[2024-06-23] MEDS: 0.9 % SODIUM CHLORIDE 250 ML IV SCH (02:00)
[2024-06-23 06:46] LABS: Basophils # (Auto) 0.04 K/mcL (0.00-0.30); Basophils % (Auto) 0.3 % (0.0-2.0); Eosinophils # (Auto) 0.37 K/mcL (0.00-0.70); Eosinophils % (Auto) 2.9 % (0.0-7.0); Hematocrit 34.6 % (34.1-44.9); Hemoglobin 10.5 g/dL (11.2-15.7); Lymphocytes # (Auto) 1.81 K/mcL (1.50-4.80); Mean Cell Volume 101.2 fL (80.0-100.0); Mean Corpuscular HGB Conc 30.3 g/dL (31.0-36.0); Mean Platelet Volume 10.8 fL (8.8-12.5); Monocytes # (Auto) 1.39 K/mcL (0.10-0.90); Monocytes % (Auto) 10.8 % (1.0-12.0); Neutrophils % (Auto) 70.1 % (38.0-78.0); Platelet Count 270 K/mcL (140-440); RBC 3.42 M/mcL (3.59-5.38); Red Cell Distribution Width 12.4 % (11.5-14.5); WBC 12.9 K/mcL (4.5-11.0)
[2024-06-23 07:33] LABS: ALT/SGPT 28 U/L (<40); AST/SGOT 44 U/L (<32); Albumin 2.9 gm/dL (3.2-5.2); Albumin/Globulin Ratio 1.5 (1.0-2.3); Alkaline Phosphatase 69 U/L (39-117); Bilirubin,Total 0.4 mg/dL (0.1-1.0); Blood Urea Nitrogen 22 mg/dL (8-23); Calcium 9.2 mg/dL (8.6-10.4); Carbon Dioxide 29 mmol/L (22-30); Chloride 103 mmol/L (96-108); Glomerular Filtration Rate 86; Glucose 140 mg/dL (70-105); Potassium 4.6 mmol/L (3.3-5.1); Sodium 139 mmol/L (133-145)
[2024-06-23] MEDS: PANTOPRAZOLE 40 MG PACKET PO SCH (08:16)
[2024-06-23] MEDS: METOPROLOL TARTRATE 5 MG/5 ML VIAL IV PRN (19:28)
[2024-06-23] MEDS: METOPROLOL TARTRATE 5 MG/5 ML VIAL IV ONE (19:50)
[2024-06-24 06:59] LABS: ALT/SGPT 35 U/L (<40); AST/SGOT 41 U/L (<32); Albumin 3.1 gm/dL (3.2-5.2); Albumin/Globulin Ratio 1.3 (1.0-2.3); Alkaline Phosphatase 81 U/L (39-117); Bilirubin,Total 0.6 mg/dL (0.1-1.0); Blood Urea Nitrogen 21 mg/dL (8-23); Calcium 9.3 mg/dL (8.6-10.4); Carbon Dioxide 31 mmol/L (22-30); Chloride 103 mmol/L (96-108); Globulin 2.3 gm/dL (2.2-3.7); Glomerular Filtration Rate 81; Glucose 124 mg/dL (70-105); Potassium 4.1 mmol/L (3.3-5.1); Sodium 143 mmol/L (133-145)
[2024-06-24 07:00] LABS: Basophils # (Auto) 0.05 K/mcL (0.00-0.30); Basophils % (Auto) 0.4 % (0.0-2.0); Eosinophils # (Auto) 0.52 K/mcL (0.00-0.70); Eosinophils % (Auto) 3.7 % (0.0-7.0); Hematocrit 36.9 % (34.1-44.9); Hemoglobin 11.7 g/dL (11.2-15.7); Lymphocytes # (Auto) 2.75 K/mcL (1.50-4.80); Lymphocytes % (Auto) 19.7 % (15.5-49.0); Mean Cell Volume 98.9 fL (80.0-100.0); Mean Corpuscular HGB Conc 31.7 g/dL (31.0-36.0); Mean Platelet Volume 10.5 fL (8.8-12.5); Monocytes # (Auto) 1.52 K/mcL (0.10-0.90); Monocytes % (Auto) 10.9 % (1.0-12.0); Neutrophils % (Auto) 62.8 % (38.0-78.0); Platelet Count 343 K/mcL (140-440); RBC 3.73 M/mcL (3.59-5.38); Red Cell Distribution Width 12.4 % (11.5-14.5)
[2024-06-24] MEDS ORDERED: DILTIAZEM 125 MG in DEXTROSE 5% IN WATER 100 ML IV PRN (09:59)
[2024-06-25 06:45] LABS: Basophils # (Auto) 0.06 K/mcL (0.00-0.30); Basophils % (Auto) 0.5 % (0.0-2.0); Eosinophils # (Auto) 0.46 K/mcL (0.00-0.70); Eosinophils % (Auto) 3.9 % (0.0-7.0); Hematocrit 34.1 % (34.1-44.9); Hemoglobin 10.6 g/dL (11.2-15.7); Lymphocytes # (Auto) 1.84 K/mcL (1.50-4.80); Lymphocytes % (Auto) 15.8 % (15.5-49.0); Mean Cell Volume 99.4 fL (80.0-100.0); Mean Corpuscular HGB Conc 31.1 g/dL (31.0-36.0); Mean Platelet Volume 10.5 fL (8.8-12.5); Monocytes # (Auto) 1.39 K/mcL (0.10-0.90); Monocytes % (Auto) 11.9 % (1.0-12.0); Neutrophils % (Auto) 64.6 % (38.0-78.0); Platelet Count 332 K/mcL (140-440); RBC 3.43 M/mcL (3.59-5.38); Red Cell Distribution Width 12.4 % (11.5-14.5); WBC 11.7 K/mcL (4.5-11.0)
[2024-06-25 06:58] LABS: ALT/SGPT 35 U/L (<40); AST/SGOT 37 U/L (<32); Albumin 2.9 gm/dL (3.2-5.2); Albumin/Globulin Ratio 1.5 (1.0-2.3); Alkaline Phosphatase 75 U/L (39-117); Bilirubin,Total 0.6 mg/dL (0.1-1.0); Blood Urea Nitrogen 20 mg/dL (8-23); Calcium 9.5 mg/dL (8.6-10.4); Carbon Dioxide 33 mmol/L (22-30); Chloride 103 mmol/L (96-108); Globulin 1.9 gm/dL (2.2-3.7); Glomerular Filtration Rate 81; Glucose 119 mg/dL (70-105); Potassium 3.6 mmol/L (3.3-5.1); Sodium 144 mmol/L (133-145)
[2024-06-25] MEDS: DILTIAZEM 30 MG TABLET PO SCH (17:12)
[2024-06-25] MEDS: DILTIAZEM 125 MG/25 ML VIAL IV ONE (18:54)
[2024-06-25] MEDS: DILTIAZEM 25 MG/5 ML VIAL IV ONE (19:28)
[2024-06-26 06:04] LABS: Basophils # (Auto) 0.04 K/mcL (0.00-0.30); Basophils % (Auto) 0.3 % (0.0-2.0); Eosinophils # (Auto) 0.33 K/mcL (0.00-0.70); Eosinophils % (Auto) 2.6 % (0.0-7.0); Hematocrit 36.3 % (34.1-44.9); Hemoglobin 11.1 g/dL (11.2-15.7); Lymphocytes # (Auto) 1.96 K/mcL (1.50-4.80); Lymphocytes % (Auto) 15.3 % (15.5-49.0); Mean Corpuscular HGB Conc 30.6 g/dL (31.0-36.0); Mean Platelet Volume 10.4 fL (8.8-12.5); Monocytes # (Auto) 1.18 K/mcL (0.10-0.90); Monocytes % (Auto) 9.2 % (1.0-12.0); Neutrophils % (Auto) 68.6 % (38.0-78.0); Platelet Count 358 K/mcL (140-440); RBC 3.63 M/mcL (3.59-5.38); Red Cell Distribution Width 12.7 % (11.5-14.5); WBC 12.8 K/mcL (4.5-11.0)
[2024-06-26 06:33] LABS: ALT/SGPT 40 U/L (<40); AST/SGOT 37 U/L (<32); Albumin 3.2 gm/dL (3.2-5.2); Albumin/Globulin Ratio 1.7 (1.0-2.3); Alkaline Phosphatase 80 U/L (39-117); Bilirubin,Total 0.7 mg/dL (0.1-1.0); Blood Urea Nitrogen 17 mg/dL (8-23); Calcium 9.6 mg/dL (8.6-10.4); Carbon Dioxide 34 mmol/L (22-30); Chloride 102 mmol/L (96-108); Globulin 1.9 gm/dL (2.2-3.7); Glomerular Filtration Rate 86; Glucose 152 mg/dL (70-105); Potassium 3.4 mmol/L (3.3-5.1); Sodium 144 mmol/L (133-145)
[2024-06-26] MEDS: DILTIAZEM 30 MG TABLET PO SCH (08:47)
[2024-06-26] MEDS: DILTIAZEM 125 MG in DEXTROSE 5% IN WATER 100 ML IV SCH (10:29)
[2024-06-26] MEDS: POTASSIUM CHLORIDE 20 MEQ PACKET PO ONE (10:29)
[2024-06-26] MEDS: DILTIAZEM 25 MG/5 ML VIAL IV ONE (10:29)
[2024-06-26] MEDS: IPRATROPIUM/ALBUTEROL 3 ML AMPUL.NEB NEB SCH (15:23)
[2024-06-26] MEDS: morphine 2 MG/ML VIAL ONE (18:40)
[2024-06-26] MEDS ORDERED: LACTATED RINGERS 1,000 ML IV SCH (18:45)
[2024-06-26] MEDS: 0.9 % SODIUM CHLORIDE 250 ML IV ONE ×2 (18:46→22:10)
[2024-06-26] MEDS: morphine 2 MG/ML VIAL IV ONE (19:34)
[2024-06-26 19:46] LABS: Phosphorous 2.3 mg/dL (2.5-4.5)
[2024-06-26 19:48] LABS: Blood Urea Nitrogen 17 mg/dL (8-23); Carbon Dioxide 28 mmol/L (22-30); Chloride 98 mmol/L (96-108); Glomerular Filtration Rate 77; Glucose 226 mg/dL (70-105); Potassium 4.4 mmol/L (3.3-5.1); Sodium 138 mmol/L (133-145)
[2024-06-26] MEDS: NEUTRA PHOS 1 PACKET PO ONE (23:31)
[2024-06-26] MEDS: CALCIUM GLUCONATE 4.65 MEQ/10 ML VIAL IV ONE (23:32)
[2024-06-26] MEDS: CALCIUM GLUCONATE 4.65 MEQ/10 ML VIAL ONE (23:37)
[2024-06-26] MEDS: NEUTRA PHOS 1 PACKET ONE (23:38)
[2024-06-27] MEDS: SODIUM PHOSPHATE 15 MMOL in DEXTROSE 5% IN WATER 250 ML IV ONE (01:36)
[2024-06-27] MEDS: DILTIAZEM 125 MG/25 ML VIAL IV ONE (04:42)
[2024-06-27 06:51] LABS: Basophils # (Auto) 0.04 K/mcL (0.00-0.30); Basophils % (Auto) 0.2 % (0.0-2.0); Eosinophils # (Auto) 0.24 K/mcL (0.00-0.70); Eosinophils % (Auto) 1.4 % (0.0-7.0); Hematocrit 32.4 % (34.1-44.9); Lymphocytes # (Auto) 1.31 K/mcL (1.50-4.80); Lymphocytes % (Auto) 7.5 % (15.5-49.0); Mean Cell Volume 100.9 fL (80.0-100.0); Mean Corpuscular HGB Conc 30.9 g/dL (31.0-36.0); Mean Platelet Volume 10.2 fL (8.8-12.5); Monocytes # (Auto) 1.46 K/mcL (0.10-0.90); Monocytes % (Auto) 8.4 % (1.0-12.0); Neutrophils % (Auto) 78.4 % (38.0-78.0); Platelet Count 369 K/mcL (140-440); RBC 3.21 M/mcL (3.59-5.38); WBC 17.4 K/mcL (4.5-11.0)
[2024-06-27] MEDS: ONDANSETRON 4 MG ODT TABLET SL PRN (07:20)
[2024-06-27 07:33] LABS: ALT/SGPT 41 U/L (<40); AST/SGOT 38 U/L (<32); Albumin 3.1 gm/dL (3.2-5.2); Albumin/Globulin Ratio 1.6 (1.0-2.3); Alkaline Phosphatase 79 U/L (39-117); Bilirubin,Total 0.6 mg/dL (0.1-1.0); Blood Urea Nitrogen 14 mg/dL (8-23); Calcium 9.6 mg/dL (8.6-10.4); Carbon Dioxide 30 mmol/L (22-30); Chloride 100 mmol/L (96-108); Globulin 1.9 gm/dL (2.2-3.7); Glomerular Filtration Rate 86; Glucose 146 mg/dL (70-105); Potassium 3.9 mmol/L (3.3-5.1); Sodium 141 mmol/L (133-145)
[2024-06-27] MEDS: CALCIUM GLUCONATE 4.65 MEQ in DEXTROSE 5% IN WATER 50 ML IV ONE (08:37)
[2024-06-27] MEDS: DILTIAZEM 25 MG/5 ML VIAL IV ONE (08:37)
[2024-06-27] MEDS: 0.9 % SODIUM CHLORIDE 500 ML IV ONE (10:40)
[2024-06-27] MEDS ORDERED: VANCOMYCIN PER PHARMACY IV SCH (10:53)
[2024-06-27] MEDS: CEFEPIME 2 GM VIAL IV SCH (11:24)
[2024-06-27] MEDS ORDERED: SODIUM CHLORIDE IRRIG SOLUTION 500 ML BOTTLE IRR ONE (14:11)
[2024-06-27] MEDS ORDERED: LIDOCAINE 1% 10 ML VIAL SQ ONE (14:11)
[2024-06-27] MEDS: VANCOMYCIN 1,500 MG in 0.9 % SODIUM CHLORIDE 500 ML IV SCH (14:15)
[2024-06-27 15:56] LABS: Appearance,Urine Clear (Clear); Bacteria,Urine Few /hpf (0); Bilirubin,Urine Negative (Negative); Color,Urine Yellow; Glucose,Urine (UA) Negative (Negative); Ketones,Urine Negative (Negative); Leukocyte Esterase,Urine Negative /uL (Negative); Nitrate,Urine Negative (Negative); PH,Urine 5.5 (5.0-9.0); Protein,Urine Negative (Negative); Specific Gravity,Urine 1.015 (1.000-1.035); Urine Blood Trace-intact ery/mcL (Negative); Urine Hyaline Cast 1 /lph (0-2); Urine RBC 4 /hpf (0-3); Urine Squamous Epithelial Cell 3 /hpf (0-4); Urine Transitional Epi Cells 2 /hpf (0-2); Urine WBC 2 /hpf (0-4); Urobilinogen,Urine 0.2 mg/dL
[2024-06-27 16:19] LABS: Basophils # (Auto) 0.05 K/mcL (0.00-0.30); Basophils % (Auto) 0.3 % (0.0-2.0); Eosinophils # (Auto) 0.34 K/mcL (0.00-0.70); Eosinophils % (Auto) 1.8 % (0.0-7.0); Hematocrit 33.4 % (34.1-44.9); Hemoglobin 10.2 g/dL (11.2-15.7); Lymphocytes % (Auto) 7.8 % (15.5-49.0); Mean Cell Volume 100.9 fL (80.0-100.0); Mean Corpuscular HGB Conc 30.5 g/dL (31.0-36.0); Mean Platelet Volume 9.6 fL (8.8-12.5); Monocytes # (Auto) 1.65 K/mcL (0.10-0.90); Monocytes % (Auto) 8.6 % (1.0-12.0); Neutrophils % (Auto) 76.8 % (38.0-78.0); Platelet Count 383 K/mcL (140-440); RBC 3.31 M/mcL (3.59-5.38); Red Cell Distribution Width 13.1 % (11.5-14.5); WBC 19.3 K/mcL (4.5-11.0)
[2024-06-28 06:59] LABS: Basophils # (Auto) 0.08 K/mcL (0.00-0.30); Basophils % (Auto) 0.5 % (0.0-2.0); Eosinophils # (Auto) 0.71 K/mcL (0.00-0.70); Eosinophils % (Auto) 4.7 % (0.0-7.0); Hematocrit 31.4 % (34.1-44.9); Hemoglobin 9.7 g/dL (11.2-15.7); Lymphocytes # (Auto) 1.24 K/mcL (1.50-4.80); Lymphocytes % (Auto) 8.3 % (15.5-49.0); Mean Cell Volume 101.3 fL (80.0-100.0); Mean Corpuscular HGB Conc 30.9 g/dL (31.0-36.0); Monocytes # (Auto) 1.45 K/mcL (0.10-0.90); Monocytes % (Auto) 9.7 % (1.0-12.0); Neutrophils % (Auto) 72.3 % (38.0-78.0); Platelet Count 377 K/mcL (140-440); Red Cell Distribution Width 13.2 % (11.5-14.5)
[2024-06-28 07:17] LABS: ALT/SGPT 37 U/L (<40); AST/SGOT 33 U/L (<32); Albumin 3.3 gm/dL (3.2-5.2); Albumin/Globulin Ratio 1.9 (1.0-2.3); Alkaline Phosphatase 85 U/L (39-117); Bilirubin,Total 0.6 mg/dL (0.1-1.0); Blood Urea Nitrogen 13 mg/dL (8-23); Calcium 9.9 mg/dL (8.6-10.4); Carbon Dioxide 29 mmol/L (22-30); Chloride 99 mmol/L (96-108); Globulin 1.7 gm/dL (2.2-3.7); Glomerular Filtration Rate 81; Glucose 145 mg/dL (70-105); Potassium 4.1 mmol/L (3.3-5.1); Sodium 138 mmol/L (133-145)
[2024-06-28] MEDS ORDERED: 0.9 % SODIUM CHLORIDE 10 ML SYRINGE IV PRN (09:54)
[2024-06-28] MEDS: IPRATROPIUM/ALBUTEROL 3 ML AMPUL.NEB NEB SCH (13:21)
[2024-06-29] MEDS: DILTIAZEM 25 MG/5 ML VIAL IV ONE (06:46)
[2024-06-29] MEDS: APIXABAN 5 MG TABLET PO SCH (08:06)
[2024-06-29] MEDS: PANTOPRAZOLE 40 MG TABLET PO SCH (08:06)
[2024-06-29 09:18] LABS: Basophils # (Auto) 0.06 K/mcL (0.00-0.30); Basophils % (Auto) 0.4 % (0.0-2.0); Eosinophils # (Auto) 0.66 K/mcL (0.00-0.70); Eosinophils % (Auto) 4.3 % (0.0-7.0); Hematocrit 33.4 % (34.1-44.9); Hemoglobin 10.1 g/dL (11.2-15.7); Lymphocytes # (Auto) 1.84 K/mcL (1.50-4.80); Lymphocytes % (Auto) 11.9 % (15.5-49.0); Mean Cell Volume 102.1 fL (80.0-100.0); Mean Corpuscular HGB Conc 30.2 g/dL (31.0-36.0); Mean Platelet Volume 9.6 fL (8.8-12.5); Monocytes # (Auto) 1.26 K/mcL (0.10-0.90); Monocytes % (Auto) 8.1 % (1.0-12.0); Platelet Count 364 K/mcL (140-440); RBC 3.27 M/mcL (3.59-5.38); Red Cell Distribution Width 13.7 % (11.5-14.5); WBC 15.5 K/mcL (4.5-11.0)
[2024-06-29 09:46] LABS: ALT/SGPT 31 U/L (<40); AST/SGOT 25 U/L (<32); Albumin 3.4 gm/dL (3.2-5.2); Albumin/Globulin Ratio 1.7 (1.0-2.3); Alkaline Phosphatase 97 U/L (39-117); Bilirubin,Total 0.5 mg/dL (0.1-1.0); Blood Urea Nitrogen 10 mg/dL (8-23); Carbon Dioxide 29 mmol/L (22-30); Chloride 101 mmol/L (96-108); Glomerular Filtration Rate 81; Glucose 142 mg/dL (70-105); Potassium 4.1 mmol/L (3.3-5.1); Sodium 139 mmol/L (133-145)
[2024-06-29] MEDS: 0.9 % SODIUM CHLORIDE 10 ML SYRINGE IV SCH (10:29)
[2024-06-29] MEDS: FUROSEMIDE 40 MG/4 ML VIAL IV ONE (17:45)
[2024-06-30 06:21] LABS: Basophils # (Auto) 0.05 K/mcL (0.00-0.30); Basophils % (Auto) 0.4 % (0.0-2.0); Eosinophils # (Auto) 0.56 K/mcL (0.00-0.70); Eosinophils % (Auto) 4.7 % (0.0-7.0); Hematocrit 29.9 % (34.1-44.9); Hemoglobin 9.1 g/dL (11.2-15.7); Lymphocytes # (Auto) 1.11 K/mcL (1.50-4.80); Lymphocytes % (Auto) 9.3 % (15.5-49.0); Mean Cell Volume 101.4 fL (80.0-100.0); Mean Corpuscular HGB Conc 30.4 g/dL (31.0-36.0); Mean Platelet Volume 9.6 fL (8.8-12.5); Monocytes # (Auto) 0.98 K/mcL (0.10-0.90); Monocytes % (Auto) 8.2 % (1.0-12.0); Neutrophils % (Auto) 73.1 % (38.0-78.0); Platelet Count 319 K/mcL (140-440); RBC 2.95 M/mcL (3.59-5.38)
[2024-06-30 06:50] LABS: ALT/SGPT 24 U/L (<40); AST/SGOT 21 U/L (<32); Alkaline Phosphatase 88 U/L (39-117); Bilirubin,Total 0.4 mg/dL (0.1-1.0); Blood Urea Nitrogen 9 mg/dL (8-23); Calcium 9.3 mg/dL (8.6-10.4); Carbon Dioxide 33 mmol/L (22-30); Chloride 101 mmol/L (96-108); Globulin 1.5 gm/dL (2.2-3.7); Glomerular Filtration Rate 86; Glucose 129 mg/dL (70-105); Potassium 3.6 mmol/L (3.3-5.1); Sodium 141 mmol/L (133-145)
[2024-06-30] MEDS ORDERED: DILTIAZEM 125 MG in DEXTROSE 5% IN WATER 100 ML IV PRN ×2 (07:01→22:15)
[2024-06-30] MEDS: DILTIAZEM 180 MG CAP.XL.24H PO SCH (08:47)
[2024-06-30] MEDS: LEVOFLOXACIN 750 MG TABLET PO SCH (08:47)
[2024-06-30] MEDS: FUROSEMIDE 40 MG/4 ML VIAL IV ONE (08:48)
[2024-06-30] MEDS: IPRATROPIUM/ALBUTEROL 3 ML AMPUL.NEB NEB PRN (19:45)
[2024-06-30] MEDS ORDERED: METOPROLOL TARTRATE 5 MG/5 ML VIAL IV PRN (22:09)
[2024-07-01 06:32] LABS: Basophils # (Auto) 0.06 K/mcL (0.00-0.30); Basophils % (Auto) 0.5 % (0.0-2.0); Eosinophils # (Auto) 0.41 K/mcL (0.00-0.70); Eosinophils % (Auto) 3.4 % (0.0-7.0); Hematocrit 32.8 % (34.1-44.9); Hemoglobin 10.2 g/dL (11.2-15.7); Lymphocytes # (Auto) 1.14 K/mcL (1.50-4.80); Lymphocytes % (Auto) 9.4 % (15.5-49.0); Mean Cell Volume 101.2 fL (80.0-100.0); Mean Corpuscular HGB Conc 31.1 g/dL (31.0-36.0); Mean Platelet Volume 9.7 fL (8.8-12.5); Monocytes # (Auto) 0.98 K/mcL (0.10-0.90); Monocytes % (Auto) 8.1 % (1.0-12.0); Platelet Count 306 K/mcL (140-440); RBC 3.24 M/mcL (3.59-5.38); Red Cell Distribution Width 14.1 % (11.5-14.5); WBC 12.2 K/mcL (4.5-11.0)
[2024-07-01] MEDS ORDERED: DILTIAZEM 125 MG in DEXTROSE 5% IN WATER 100 ML IV PRN (06:34)
[2024-07-01 06:40] LABS: ALT/SGPT 23 U/L (<40); AST/SGOT 27 U/L (<32); Albumin 3.3 gm/dL (3.2-5.2); Albumin/Globulin Ratio 1.8 (1.0-2.3); Alkaline Phosphatase 116 U/L (39-117); Bilirubin,Direct 0.2 mg/dL (<0.3); Bilirubin,Total 0.4 mg/dL (0.1-1.0); Blood Urea Nitrogen 11 mg/dL (8-23); Calcium 9.5 mg/dL (8.6-10.4); Carbon Dioxide 35 mmol/L (22-30); Chloride 100 mmol/L (96-108); Globulin 1.8 gm/dL (2.2-3.7); Glomerular Filtration Rate 81; Glucose 115 mg/dL (70-105); Lactate Dehydrogenase 241 U/L (135-225); Phosphorous 2.9 mg/dL (2.5-4.5); Potassium 3.6 mmol/L (3.3-5.1); Sodium 140 mmol/L (133-145); Triglycerides 84 mg/dL (<150); Uric Acid 4.1 mg/dL (2.5-8.0)
[2024-07-01] MEDS ORDERED: AMPICILLIN SODIUM 2 GM VIAL IV SCH (07:45)
[2024-07-01] MEDS: FUROSEMIDE 40 MG/4 ML VIAL IV ONE (08:19)
[2024-07-01 08:51] LABS: Anisocytosis 1+ (None Seen); Eosinophils % (Manual) 5 % (0-7); Lymphocytes % 15 % (15-49); Macrocytosis 1+ (None Seen); Monocytes % (Manual) 4 % (1-12); Myelocytes % 1 %; Platelet Estimate NORMAL (Normal); Polychromasia FEW (None Seen); RBC Morphology ABNORMAL (Normal); Segmented Neutrophils % 75 % (38-78)
[2024-07-01] MEDS: FUROSEMIDE 20 MG TABLET PO SCH (10:18)
[2024-07-01] MEDS: AMPICILLIN SODIUM 2 GM in 0.9 % SODIUM CHLORIDE 100 ML IV SCH (10:18)
[2024-07-02 06:46] LABS: Basophils # (Auto) 0.05 K/mcL (0.00-0.30); Basophils % (Auto) 0.4 % (0.0-2.0); Eosinophils # (Auto) 0.27 K/mcL (0.00-0.70); Eosinophils % (Auto) 2.3 % (0.0-7.0); Hematocrit 34.1 % (34.1-44.9); Hemoglobin 10.6 g/dL (11.2-15.7); Lymphocytes # (Auto) 1.37 K/mcL (1.50-4.80); Lymphocytes % (Auto) 11.9 % (15.5-49.0); Mean Cell Volume 99.7 fL (80.0-100.0); Mean Corpuscular HGB Conc 31.1 g/dL (31.0-36.0); Mean Platelet Volume 9.7 fL (8.8-12.5); Monocytes # (Auto) 0.95 K/mcL (0.10-0.90); Monocytes % (Auto) 8.2 % (1.0-12.0); Neutrophils % (Auto) 74.8 % (38.0-78.0); Platelet Count 318 K/mcL (140-440); RBC 3.42 M/mcL (3.59-5.38); Red Cell Distribution Width 14.1 % (11.5-14.5); WBC 11.5 K/mcL (4.5-11.0)
[2024-07-02 06:59] LABS: ALT/SGPT 22 U/L (<40); AST/SGOT 26 U/L (<32); Albumin 3.1 gm/dL (3.2-5.2); Albumin/Globulin Ratio 1.5 (1.0-2.3); Alkaline Phosphatase 114 U/L (39-117); Bilirubin,Direct 0.2 mg/dL (<0.3); Bilirubin,Total 0.4 mg/dL (0.1-1.0); Blood Urea Nitrogen 13 mg/dL (8-23); Calcium 9.7 mg/dL (8.6-10.4); Carbon Dioxide 32 mmol/L (22-30); Chloride 97 mmol/L (96-108); Globulin 2.1 gm/dL (2.2-3.7); Glomerular Filtration Rate 81; Glucose 112 mg/dL (70-105); Lactate Dehydrogenase 240 U/L (135-225); Phosphorous 2.9 mg/dL (2.5-4.5); Potassium 3.5 mmol/L (3.3-5.1); Sodium 140 mmol/L (133-145); Triglycerides 91 mg/dL (<150); Uric Acid 4.5 mg/dL (2.5-8.0)
[2024-07-02] MEDS: ALBUMIN HUMAN 12.5 GM/50 ML VIAL IV ONE (09:02)
[2024-07-02] MEDS: FUROSEMIDE 40 MG/4 ML VIAL IV ONE (09:02)
[2024-07-02] MEDS: BISACODYL 10 MG SUPP.RECT PR PRN (12:44)
[2024-07-02] MEDS ORDERED: FUROSEMIDE 40 MG/4 ML VIAL IV ONE (16:00)
== END 2024-07-02 14:23 | DRG 521 ==
LOC: MEDSUR 06:46 → ED 06:46 → MEDSUR 19:19 → ICU 06-22 12:57
PROVIDERS: ADMIT Internal Medicine; ATTEND Internal Medicine
PROC: HEMIHIP (2024-06-19 15:58)